=== PATIENT | male | born 1990 | race Two or more races ===

== ENCOUNTER 2020-02-10 16:23 | Outpatient (REF) | payer BC, SELFPAY ==
[2020-02-10 17:29] LABS: Alanine Aminotransferase 34 U/L (0-40); Albumin Level 4.5 g/dL (3.5-5.0); Alkaline Phosphatase 92 U/L (39-117); Anion Gap 16 (12-20); Aspartate Amino Transferase 29 U/L (5-37); Bilirubin Total 0.8 mg/dL (0.0-1.0); Blood Urea Nitrogen 14 mg/dL (9-16); Calcium 9.3 mg/dL (8.4-10.2); Carbon Dioxide 26 mmol/L (22-29); Chloride 103 mmol/L (96-108); Cholesterol 163 mg/dL; Estimated Glomerular Filt Rate > 60; Glucose Fasting 77 mg/dL (60-99); HDL Cholesterol 44 mg/dL; LDL Cholesterol Calculated 107 mg/dl; Potassium 4.2 mmol/l (3.3-5.1); Sodium 141 mmol/L (135-145); Total Protein 7.7 g/dL (6.5-8.0); Triglycerides 64 mg/dL
[2020-02-10 17:42] LABS: Syphilis Screen Nonreactive (Nonreactive)
[2020-02-10 17:53] LABS: TSH reflex Free T4 1.29 mIU/mL (0.32-4.0)
[2020-02-12 08:17] LABS: HBc Num1 0.07 S/CO (0.00-0.79); HBsAGNum1 0.19 S/CO (0.00-0.99); Hepatitis B Core Antibody Nonreactive (Nonreactive); Hepatitis B Surface Antigen Negative (Negative)
[2020-02-12 08:45] LABS: HBS Num1 > 1000.00 mIU/mL (0-7.99); HIV AB/AG Nonreactive (Nonreactive); HIV Num 1 0.24 S/CO (0.00-0.99); ~HepC Num1 0.04 S/CO (0.00-0.79); ~Hepatitis B Surface Antibody REACTIVE (Nonreactive); ~Hepatitis C Antibody Nonreactive (Nonreactive)
== END 2020-02-10 16:24 | disposition home or self-care (01) ==
LOC: HO.LAB 16:23
PROVIDERS: PCP Family Medicine; Visit Provider Family Medicine
DX: Z11.3 Encounter for screening for infections with a predominantly sexual mode of transmission (principal); Z00.00 Encounter for general adult medical examination without abnormal findings
CPT/HCPCS: 80053; 80061; 84443; 86704; 86706; 86780; 86803; 87340; 87389

== ENCOUNTER 2020-10-24 14:21 | Emergency (ER) | payer BC, SELFPAY ==
[2020-10-24 14:44] VITALS: BP 132/84; PULSE 90; RESP 16; TEMP 36.7; O2SAT 98; BMI 43.2
--- NOTE | 2020-10-24 15:15 | ED.SKABFB ---
HPI - Skin/Abscess/Foreign Bdy General Chief complaint: Skin/Abscess/Foreign Body Stated complaint: cyst Time Seen by Provider: 10/24/20 15:13 History of Present Illness HPI narrative: Patient complains of red swollen painful area on his back for several days, he saw his doctor who started antibiotics but it continues to remains swollen, no fever no chills no other complaints Related Data Previous Rx's Medication Instructions Recorded cephalexin 500 mg capsule 500 mg PO Q12H 10 Days #20 cap 10/19/20 doxycycline hyclate 100 mg capsule 100 mg PO BID 7 Days #14 cap 10/24/20 ibuprofen 600 mg tablet 600 mg PO Q6H PRN #20 tab 10/24/20 oxycodone 5 mg tablet 5 mg PO Q6H PRN #10 tab 10/24/20 Allergies Allergy/AdvReac Type Severity Reaction Status Date / Time No Known Allergies Allergy Verified 10/19/20 17:25 Review of Systems Review of Systems: Positive for redness and swelling to a spot on the back Negatives are no fever no chills no headache no neck pain no shortness of breath no nausea or vomiting no dysuria no numbness weakness or tingling Yes all other systems are reviewed and are negative PMFSH Past Medical History Source: nursing notes reviewed Social History Social History Advance Directives: Yes Advance Directives Information Provided: Yes Advance Directives on File: No Physical Exam Vital Signs: Vital Signs: Last Vital Signs Temp 98.1 F 10/24/20 14:44 Pulse 90 10/24/20 14:44 Resp 16 10/24/20 14:44 BP 132/84 10/24/20 14:44 Pulse Ox 98 10/24/20 14:44 Body Mass Index 43.2 General appearance is no acute distress The head is normocephalic atraumatic Neck is supple Respiratory no distress The back is full range of motion, no bony tenderness The skin of the back has an abscess with redness fluctuance and tenderness on the left side of the upper back between scapula and midline Extremities full range of motion x4 Neuro no focal deficits Course Course Course Narrative: Procedure note Abscess of the back is cleansed with Betadine Anesthesia is 8 cc of 1% lidocaine An incision is made with an 11 blade Copious pus and solid cystic material is expressed from the cavity, packing was placed and a dressing was placed Discharge Plan Discharge Clinical Impression: Abscess Patient Disposition: Home, Self-Care Additional Instructions: Return in 2 days, Monday morning for packing removal, wound check Return any time for worse pain and swelling, fever, spreading redness, any worse condition or any concerns Take both the antibiotic you already prescribed and in addition take the doxycycline Prescriptions: New doxycycline hyclate 100 mg capsule 100 mg PO BID 7 Days Qty: 14 RF: 0 oxycodone 5 mg tablet 5 mg PO Q6H PRN (Reason: pain) Qty: 10 RF: 0 ibuprofen 600 mg tablet 600 mg PO Q6H PRN (Reason: pain) Qty: 20 RF: 0 No Action cephalexin 500 mg capsule 500 mg PO Q12H 10 Days Qty: 20 RF: 0 Stand Alone Forms: Work/School Release Interventions: ED Discharge Assessment Last Done: 10/24/20 16:36 Discharge Date/Time: 10/24/20 16:37
[2020-10-24] MEDS: Lidocaine HCl 1 % MPF 5 ML VIAL SUBCUT ×2 (15:22)
== END 2020-10-24 16:37 | disposition home or self-care (01) ==
PROVIDERS: Emergency Provider Internal Medicine; PCP Family Medicine
DX: L02.212 Cutaneous abscess of back [any part, except buttock and flank] (principal)
CPT/HCPCS: 10060; 99283; 99284

== ENCOUNTER 2020-10-26 08:01 | Emergency (ER) | payer BC, SELFPAY ==
[2020-10-26 08:33] VITALS: BP 152/79; PULSE 95; RESP 18; TEMP 36.4; O2SAT 97; BMI 39.9
--- NOTE | 2020-10-26 10:06 | ED_ITS ---
HPI - Recheck/Abnormal Lab/Rx General Chief Complaint: Wound/Laceration Stated Complaint: wound care Time Seen by Provider: 10/26/20 09:40 Source: patient Mode of arrival: ambulatory Limitations: no limitations History of Present Illness complaint: wound re-check Initial visit (ago): day(s) (Two days ago) Initial visit for: cellulitis and abscess Returns today for: wound recheck (Packing removal) and cellulitis follow-up Symptoms since prior visit: no new symptoms and improved Context: planned re-check Associated symptoms: none Treatments prior to arrival: other (Taking the antibiotics as prescribed) Related Data Previous Rx's Medication Instructions Recorded cephalexin 500 mg capsule 500 mg PO Q12H 10 Days #20 cap 10/19/20 doxycycline hyclate 100 mg capsule 100 mg PO BID 7 Days #14 cap 10/24/20 ibuprofen 600 mg tablet 600 mg PO Q6H PRN #20 tab 10/24/20 oxycodone 5 mg tablet 5 mg PO Q6H PRN #10 tab 10/24/20 Allergies Allergy/AdvReac Type Severity Reaction Status Date / Time No Known Allergies Allergy Verified 10/19/20 17:25 Review of Systems Review of Systems: Constitutional : No Fever, No Chills, Cardiovascular : No Chest Pain, No SOB Respiratory : No Dyspnea Gastrointestinal : No abdominal pain Musculoskeletal : No Joint Swelling Skin : positive skin wound, no laceration, No Foreign bodies, No rash, No surrounding erythema Neuro : No Weakness, No Numbness/tingling Psych : No SI/HI/thoughts of self injury Yes all other systems are reviewed and are negative [facility] Past Medical History Attestation statement: The following information was validated with the patient. Social History Social History Advance Directives: Yes Advance Directives Information Provided: Yes Advance Directives on File: No Physical Exam Vital Signs: Vital Signs: Last Vital Signs Temp 97.6 F 10/26/20 08:33 Pulse 95 10/26/20 08:33 Resp 18 10/26/20 08:33 BP 152/79 H 10/26/20 08:33 Pulse Ox 97 10/26/20 08:33 Body Mass Index 39.9 vital signs have been reviewed as normal and appeared to be correct. Blood pressure hypertensive 152/79. Heart rate normal. Respiration rate normal. Temperature normal. Oxygen saturation normal. Appearance: Alert. Oriented X3. No acute distress. Head: Normal external exam. Normocephalic. Atraumatic. Eyes: PERRLA. EOMI. Conjunctiva and sclera normal. Eyelids normal. ENT: Pharynx normal. Uvula midline. Moist mucous membranes. Neck: Normal inspection. Neck supple. FROM. No adenopathy. No meningeal signs. CVS: Normal heart rate and rhythm. Heart sound normal. Pulses normal throughout. No murmurs/rales/gallops. Respiratory: No respiratory distress. Painless inspiration. Breath sounds normal. No wheezes/rales/rhonchi noted. Chest nontender. No accessory muscle usage noted or decreased air movement noted. Back: Full range of motion noted. To the patient's upper back patient noted to have a wound with packing in place no surrounding erythema purulent drainage noted. No streaking noted. No fluctuance noted. No additional rashes/lesion/induration/fluctuance or signs of infection noted. Skin: Skin warm and dry. Normal skin color. Normal skin turgor. No rashes/lesions/lacerations noted. Extremities: Extremities exhibit normal range of motion. Extremities nontender. Neuro: Oriented X 3. No motor deficit. No sensory deficit. Reflexes normal. Normal steady gait. No focal neuro deficits noted. Vascular: + radial pulses/+ 2 distal pedal pulses/+2 dorsalis pedis b/l. Normal cap refill. No cyanosis noted to upper extremity nails and lower extremity toes nails. Course Course Course Narrative: 30-year-old male presenting to the ED 2 days after he had an I&D here with packing placed. He was already on Keflex and doxycycline. Reports that he is taking as prescribed. No new symptoms. On exam patient noted to have packing in place no surrounding erythema/purulent drainage/induration or fluctuance or streaking noted. Packing was removed and wound was irrigated bloody discharge was noted. No purulent drainage. Will DC home with instructions return if any new or worsening symptoms to follow up with primary care provider for. Patient understands agrees with this plan. MDM - Recheck/Abnormal Lab/Rx Medical Records Attestation: I reviewed the patient's medical records. Discharge Plan Discharge Clinical Impression: Encounter for wound re-check, Abscess packing removal Patient Disposition: Home, Self-Care Instructions: Acute Wounds (ED) Prescriptions: No Action doxycycline hyclate 100 mg capsule 100 mg PO BID 7 Days Qty: 14 RF: 0 oxycodone 5 mg tablet 5 mg PO Q6H PRN (Reason: pain) Qty: 10 RF: 0 ibuprofen 600 mg tablet 600 mg PO Q6H PRN (Reason: pain) Qty: 20 RF: 0 cephalexin 500 mg capsule 500 mg PO Q12H 10 Days Qty: 20 RF: 0 Referrals: Derrick Gastelum MD [Primary Care Provider] - 2 days Print Language: Frisian
== END 2020-10-26 10:33 | disposition home or self-care (01) ==
PROVIDERS: Emergency Provider Emergency Medicine; PCP Family Medicine
DX: Z48.00 Encounter for change or removal of nonsurgical wound dressing (principal)
CPT/HCPCS: 99283

== ENCOUNTER 2021-05-17 04:04 | Emergency (ER) | payer BC, SELFPAY ==
[2021-05-17 04:24] LABS: MANUAL DIFF FLAG NO
[2021-05-17 04:25] LABS: Basophils Percent Auto 0.3 % (0-2); Eosinophils Absolute Auto 0.1 X10*3/uL (0.0-0.4); Eosinophils Percent Auto 1.1 % (0-4); Hematocrit 45.3 % (42.0-52.0); Hemoglobin 14.4 g/dl (14.0-18.0); Imm Gran Abs Auto 0.02 X10*3/uL (0.00-0.03); Imm Gran Pct Auto 0.2 % (0.0-0.4); Lymphocytes Absolute Auto 3.4 X10*3/uL (1.2-4.9); Lymphocytes Percent Auto 35.6 % (20-40); Mean Corpuscular HGB Conc 31.8 g/dl (31.0-36.0); Mean Corpuscular Hemoglobin 27.9 pg (27.0-33.0); Mean Corpuscular Volume 87.8 fL (80.0-98.0); Mean Platelet Volume 11.2 fL (9.4-12.4); Monocytes Absolute Auto 0.6 X10*3/uL (0.1-1.2); Monocytes Percent Auto 6.1 % (2-11); Neutrophils Absolute Auto 5.4 x10*3/uL (2.0-8.3); Neutrophils Percent Auto 56.7 % (45-73); Platelet Count 242 X10*3/uL (160-400); Red Blood Count 5.16 X10*6/uL (4.60-5.80); Red Cell Distribution Width 13.8 % (11.0-16.0); White Blood Count 9.6 X10*3/uL (4.8-10.8)
[2021-05-17 04:29] VITALS: BP 146/92; PULSE 81; RESP 18; TEMP 37.1; O2SAT 99; BMI 39.5
[2021-05-17 04:43] LABS: COVID-19 Test Negative (Negative)
--- NOTE | 2021-05-17 07:33 | ED_ITS ---
HPI - General Adult General Chief complaint: General Medical Stated complaint: dizziness Time Seen by Provider: 05/17/21 06:57 Source: patient Limitations: no limitations History of Present Illness HPI narrative: This is a 30-year-old male who last night before going to bed felt a little bit dizzy. The patient later woke up around 02:00 o'clock in the morning feeling more dizzy, noted that it felt like the room was spinning. Had a bowel movement and went back to bed, still felt dizzy. Patient felt better for a time but then felt worse again this morning. The patient denies any headache. He denies that the symptoms are reproducible with turning the head to 1 side or the other. He has had some nausea, denies any vomiting. Denies any ear pain or tinnitus. He denies any chest pain or shortness of breath or palpitations. Denies abdominal pain. He said the dizziness feels better now, he still has some residual nausea. He did note a little rhinorrhea in the waiting room but has not generally felt like he has a URI Related Data Previous Rx's Medication Instructions Recorded cephalexin 500 mg capsule 500 mg PO Q12H 10 Days #20 cap 10/19/20 doxycycline hyclate 100 mg capsule 100 mg PO BID 7 Days #14 cap 10/24/20 ibuprofen 600 mg tablet 600 mg PO Q6H PRN #20 tab 10/24/20 oxycodone 5 mg tablet 5 mg PO Q6H PRN #10 tab 10/24/20 meclizine 25 mg tablet 25 mg PO TID PRN #20 tab 05/17/21 ondansetron HCl 4 mg tablet 4 mg PO Q6H PRN #10 tab 05/17/21 Allergies Allergy/AdvReac Type Severity Reaction Status Date / Time No Known Allergies Allergy Verified 11/04/20 16:40 Review of Systems Review of Systems: Yes all other systems are reviewed and are negative Constitutional: Constitutional: Reports as per HPI, Denies fever(s) and Denies headache(s) Eyes: Eyes: Reports as per HPI and Reports no additional eye complaints ENT: Reports system reviewed and no additional complaints, except as docu mented, Reports as per HPI, Reports vertigo, Denies headache(s), Denies nasal congestion, Denies nasal discharge and Denies sore throat Cardiovascular: Cardiovascular: Reports as per HPI, Denies chest pain and Denies dyspnea Respiratory: Respiratory: Reports as per HPI, Denies cough and Denies dyspnea Gastrointestinal: Gastrointestinal: Reports as per HPI, Denies abdominal pain, Denies diarrhea, Reports nausea and Denies vomiting Genitourinary: Genitourinary: Reports as per HPI, Denies hematuria, Denies dysuria and Denies urinary frequency Musculoskeletal: Musculoskeletal: Reports no additional musculoskeletal complaints and Denies numbness Integumentary/Breasts: Skin/Breast: Reports as per HPI and Denies rash Neurologic: Reports as per HPI, Reports vertigo, Denies headache(s), Denies focal weakness and Denies numbness Psychiatric: Psychiatric: Reports no additional psychiatric complaints and Reports as per HPI Endocrine: Endocrine: Reports no additional endocrine complaints and Reports as per HPI Hematologic/Lymphatic: Hematologic/Lymphatic: Reports no additional hem atologic/lymphatic complaints, Reports as per HPI and Reports other (No peripheral edema) [facility] Social History Social History (Updated 11/04/20 @ 16:41 by [employer]) Housing: House Patient Tobacco Use Status: Never used Tobacco Advance Directives: No Advance Directives Information Provided: No Current occupational status: employed Physical Exam ED Vital Signs: Vital Signs - 24 hr 05/17/21 04:29 Temperature 98.8 F Pulse Rate 81 Respiratory Rate 18 Blood Pressure 146/92 H Pulse Oximetry 99 BMI result Body Mass Index 39.5 Const General: no acute distress Orientation/consciousness: patient oriented x3 HENMT Head: Yes normal to inspection Ears: external ears normal and TM's normal bilaterally General nose exam: Normal external nose present Mouth: moist mucous membranes Throat: Yes posterior oropharynx normal, Yes tonsils normal and Yes uvula midline Eyes Eyelids: Yes eyelids normal Conjunctivae: conjunctivae normal Pupils: Equal, round and reactive pupils present Neck Neck: Yes supple Resp Effort & Inspection: normal respiratory effort Auscultation: clear to auscultation bilaterally Cardio Rate: regular rate Rhythm: regular rhythm Heart sounds: S1 normal heart sound present, S2 normal heart sound present, no gallops, no murmurs and no rubs GI Inspection: No distended Palpation (GI): Soft to palpation and nontender Auscultation: normal bowel sounds Skin General skin exam: other (Warm and dry) Neuro General: patient oriented x3 and CN's II-XI intact bilaterally Cranial nerves: Yes Equal, round and reactive pupils present Extrem General: Yes no pedal edema Psych Affect: normal affect Attitude: cooperative Medical Decision Making MDM Narrative Medical decision making narrative: Patient was [id number] vertigo symptoms which seem to have resolved mostly on their own. Patient did have some residual nausea. Patient was treated with Antivert and Zofran and felt much better. Patient had no nystagmus on exam, symptoms were not reproduced with turning his head, doubt benign positional vertigo. Patient may have mild labyrinthitis. Patient had no headache, do not suspect brain or cervical or hemorrhage, or vertebral artery or basilar artery dissection. Will treat the patient with Antivert and Zofran. CBC and chemistry unremarkable. Patient with a normal heart exam, and vital signs, no cardiac workup indicated Lab Data Lab results reviewed: Yes I reviewed the patient's lab results. Result diagrams: 05/17/21 04:19 05/17/21 07:38 Labs: Lab Results 05/17/21 05/17/21 05/17/21 Range/Units 04:19 04:20 07:38 WBC 9.6 (4.8-10.8) X10*3/uL RBC 5.16 (4.60-5.80) X10*6/uL Hgb 14.4 (14.0-18.0) g/dl Hct 45.3 (42.0-52.0) % MCV 87.8 (80.0-98.0) fL MCH 27.9 (27.0-33.0) pg MCHC 31.8 (31.0-36.0) g/dl RDW 13.8 (11.0-16.0) % Plt Count 242 (160-400) X10*3/uL MPV 11.2 (9.4-12.4) fL Immature Gran % (Auto) 0.2 (0.0-0.4) % Neut % (Auto) 56.7 (45-73) % Lymph % (Auto) 35.6 (20-40) % Island % (Auto) 6.1 (2-11) % Eos % (Auto) 1.1 (0-4) % Baso % (Auto) 0.3 (0-2) % Lymph # (Auto) 3.4 (1.2-4.9) X10*3/uL Island # (Auto) 0.6 (0.1-1.2) X10*3/uL Eos # (Auto) 0.1 (0.0-0.4) X10*3/uL Baso # (Auto) 0.0 (0.0-0.2) X10*3/uL Abs Immat Gran (auto) 0.02 (0.00-0.03) X10*3/uL Absolute Neuts (auto) 5.4 (2.0-8.3) x10*3/uL Absolute Nucleated RBC 0.000 (0.0-0.012) X10*3/uL Nucleated RBC % (auto) 0.0 (0.0-0.2) /100WBC Sodium 138 (135-145) mmol/L Potassium 4.5 (3.3-5.1) mmol/L Chloride 105 (96-108) mmol/L Carbon Dioxide 24 (22-29) mmol/L Anion Gap 14 (12-20) BUN 11 (9-16) mg/dL Creatinine 0.77 (0.5-1.4) mg/dL Estim Creat Clear Calc 176.6 Estimated GFR > 60 Random Glucose 131 H (60-115) mg/dL Calcium 9.6 (8.4-10.2) mg/dL Total Bilirubin 0.4 (0.0-1.0) mg/dL AST 31 (5-37) U/L ALT 61 H (0-40) U/L Alkaline Phosphatase 90 (39-117) U/L Total Protein 7.8 (6.5-8.0) g/dL Albumin 4.4 (3.5-5.0) g/dL COVID-19 ([facility]) Negative (Negative) COVID-19 Clin Com See Note Discharge Plan Discharge Clinical Impression: Vertigo Patient Disposition: Home, Self-Care Instructions: Vertigo (ED) Additional Instructions: return for any new or worsened symptoms. Use the meclizine as prescribed. Use ondansetron as needed for nausea. Drink plenty of fluids. Prescriptions: New meclizine 25 mg tablet 25 mg PO TID PRN (Reason: dizziness) Qty: 20 0RF ondansetron HCl 4 mg tablet 4 mg PO Q6H PRN (Reason: nausea and vomiting) Qty: 10 0RF No Action doxycycline hyclate 100 mg capsule 100 mg PO BID 7 Days Qty: 14 0RF oxycodone 5 mg tablet 5 mg PO Q6H PRN (Reason: pain) Qty: 10 0RF Rx Instructions: Narcotic may cause drowsiness, no driving for 6 hours after taking this medication ibuprofen 600 mg tablet 600 mg PO Q6H PRN (Reason: pain) Qty: 20 0RF cephalexin 500 mg capsule 500 mg PO Q12H 10 Days Qty: 20 0RF Stand Alone Forms: Work/School Release Interventions: ED Discharge Assessment Last Done: 05/17/21 08:16 Discharge Date/Time: 05/17/21 08:17
[2021-05-17] MEDS: Meclizine HCl 25 MG TABLET PO (07:41)
[2021-05-17] MEDS: Ondansetron ODT 4 MG TAB.RAPDIS TRANSLINGU (07:41)
[2021-05-17 08:01] LABS: Alanine Aminotransferase 61 U/L (0-40); Albumin Level 4.4 g/dL (3.5-5.0); Alkaline Phosphatase 90 U/L (39-117); Anion Gap 14 (12-20); Aspartate Amino Transferase 31 U/L (5-37); Bilirubin Total 0.4 mg/dL (0.0-1.0); Blood Urea Nitrogen 11 mg/dL (9-16); Calcium 9.6 mg/dL (8.4-10.2); Carbon Dioxide 24 mmol/L (22-29); Chloride 105 mmol/L (96-108); Creatinine Clr Calc Pharmacy 176.6; Estimated Glomerular Filt Rate > 60; Glucose Random 131 mg/dL (60-115); Potassium 4.5 mmol/L (3.3-5.1); Sodium 138 mmol/L (135-145); Total Protein 7.8 g/dL (6.5-8.0)
== END 2021-05-17 08:17 | disposition home or self-care (01) ==
PROVIDERS: Emergency Provider Emergency Medicine; PCP Family Medicine
DX: R42 Dizziness and giddiness (principal); Z20.822 Contact with and (suspected) exposure to COVID-19
CPT/HCPCS: 36415; 80053; 85025; 87635; 99283

== ENCOUNTER 2021-10-14 14:30 | Outpatient (RCR) | payer BC, SELFPAY | END 2021-12-29 09:09 | disposition home or self-care (01) | LOC: HO.OT 14:30 | PROVIDERS: PCP Family Medicine; Visit Provider Family Medicine | DX: M25.521 Pain in right elbow (principal) | CPT/HCPCS: 97035; 97110; 97165 ==

== ENCOUNTER 2021-10-15 22:58 | Emergency (ER) | payer BC, SELFPAY ==
[2021-10-15 23:26] VITALS: BP 140/75; PULSE 92; RESP 18; O2SAT 97; BMI 36.5
[2021-10-16] MEDS: Lidocaine HCl 1 % MPF 2 ML VIAL INFILTRATI ×7 (01:23→02:15)
--- NOTE | 2021-10-16 02:15 | ED_ITS ---
HPI - Skin/Abscess/Foreign Bdy General Chief complaint: Skin/Abscess/Foreign Body Stated complaint: ingrown nail? and infection Time Seen by Provider: 10/16/21 00:35 Source: patient Mode of arrival: ambulatory Limitations: no limitations History of Present Illness HPI narrative: 31-year-old male who presents emergency department for evaluation of right index finger swelling and pain x4 days. Patient denies any injury. States that he has a constant, dull pain around the nail of his index finger with swelling which is gotten progressively worse. States the pain is 8/10 is worse if he touches the area. He denies any systemic symptoms such as malaise, fatigue, fever, chills. The patient does not bite his nails. He denies being on antibiotics recently and he has no history of MRSA infection. Related Data Previous Rx's Medication Instructions Recorded cephalexin 500 mg capsule 500 mg PO Q12H 10 days #20 caps 10/19/20 doxycycline hyclate 100 mg capsule 100 mg PO BID 7 days #14 caps 10/24/20 ibuprofen 600 mg tablet 600 mg PO Q6H PRN pain #20 tabs 10/24/20 oxycodone 5 mg tablet 5 mg PO Q6H PRN pain #10 tabs 10/24/20 meclizine 25 mg tablet 25 mg PO TID PRN dizziness #20 tabs 05/17/21 ondansetron HCl 4 mg tablet 4 mg PO Q6H PRN nausea and 05/17/21 vomiting #10 tabs cyclobenzaprine 10 mg tablet 10 mg PO BEDTIME PRN muscle spasm 08/04/21 10 days #10 tabs ibuprofen 800 mg tablet 800 mg PO Q8H PRN pain 14 days #42 08/04/21 tabs cephalexin 500 mg capsule 500 mg PO TID 5 days #15 caps 10/16/21 Allergies Allergy/AdvReac Type Severity Reaction Status Date / Time No Known Allergies Allergy Verified 10/15/21 23:28 Review of Systems Review of Systems: Yes all other systems are reviewed and are negative [facility] Past Medical History [facility] Narrative: Past medical history: None. Past surgical history: None. Social history: He denies tobacco use. He occasionally drinks alcohol. He denies drug use. Social History Social History Housing: House Patient Tobacco Use Status: Never used Tobacco Advance Directives: No Advance Directives Information Provided: Yes Current occupational status: employed Physical Exam Vital Signs: Vital Signs: Last Vital Signs Pulse 92 10/15/21 23:26 Resp 18 10/15/21 23:26 BP 140/75 H 10/15/21 23:26 Pulse Ox 97 10/15/21 23:26 O2 Del Method 10/15/21 23:26 BMI result Body Mass Index 36.5 Const: Other: Awake, alert, male patient, pleasant, cooperative in no distress HEENT: Other: Normal cephalic atraumatic Resp: Other: No respiratory distress Extrem: Other: Right index finger is consistent with a paronychial abscess Psych: Appearance: grossly normal Mental Status: mental status grossly normal Course Course Course Narrative: 31-year-old male who presented for evaluation of a right index finger paronychial abscess. The patient was anesthetized using lidocaine digital block. The patient's paronychia was incised and packed. Patient was started on Keflex 500 mg 3 times a day for 5 days and given his 1st dose here in the emergency department. He was given printed and verbal instructions and discharged home. Procedures Abscess I/D Site: other (Right index paronychial abscess) Side (if applicable): right Local Anesthetic: lidocaine 1% Amount of anesthesia used (mL): 16 Technique: incised with blade (#11 blade) Amount of fluid expressed (mL): 1 Sent for culture/gram staining?: No Irrigation: No Packing used?: iodoform Complications: other (none) Discharge Plan Discharge Clinical Impression: Paronychia of finger of right hand Patient Disposition: Home, Self-Care Instructions: Paronychia (ED) Additional Instructions: You had a paronychia abscess of your right index finger which was cut open (incised) and a small piece of gauze was placed in the incision. You had a very small amount of pus drained from the abscess. Keep the bulky dressing on for 24 hours. Take Keflex (cephalexin) 500 mg pills, 1 pill 3 times a day for 5 days. After 24 hours removed the dressing and soak your finger in warm water for 15 minutes 3 to 4 times a day for 2 days. Apply bacitracin and a gauze dressing to the incision for 3-4 days. Take ibuprofen 200 mg pills, 3 pills every 6 hours as needed for pain. Take Tylenol (acetaminophen) 500 mg pills, 2 pills every 4 to 6 hours as needed for pain. Follow-up with your doctor in 2 days. Please return to the emergency department if your symptoms get worse or if you develop any symptoms that are concerning to you. Prescriptions: New cephalexin 500 mg capsule 500 mg PO TID 5 Days Qty: 15 0RF No Action doxycycline hyclate 100 mg capsule 100 mg PO BID 7 Days Qty: 14 0RF oxycodone 5 mg tablet 5 mg PO Q6H PRN (Reason: pain) Qty: 10 0RF Rx Instructions: Narcotic may cause drowsiness, no driving for 6 hours after taking this medication ibuprofen 600 mg tablet 600 mg PO Q6H PRN (Reason: pain) Qty: 20 0RF meclizine 25 mg tablet 25 mg PO TID PRN (Reason: dizziness) Qty: 20 0RF ondansetron HCl 4 mg tablet 4 mg PO Q6H PRN (Reason: nausea and vomiting) Qty: 10 0RF cephalexin 500 mg capsule 500 mg PO Q12H 10 Days Qty: 20 0RF cyclobenzaprine 10 mg tablet 10 mg PO BEDTIME PRN (Reason: muscle spasm) 10 Days Qty: 10 0RF ibuprofen 800 mg tablet 800 mg PO Q8H PRN (Reason: pain) 14 Days Qty: 42 0RF Interventions: ED Discharge Assessment Last Done: 10/16/21 02:25 Discharge Date/Time: 10/16/21 02:35
[2021-10-16] MEDS: cephALEXin 500 MG CAPSULE PO (02:19)
== END 2021-10-16 02:35 | disposition home or self-care (01) ==
PROVIDERS: Emergency Provider Emergency Medicine Emergency Medical Services; PCP Family Medicine
DX: L03.011 Cellulitis of right finger (principal)
CPT/HCPCS: 10060; 99282; 99284

== ENCOUNTER 2022-10-12 20:30 | Emergency (ER) | payer BC, SELFPAY ==
[2022-10-12 20:41] VITALS: BP 149/93; PULSE 88; RESP 18; TEMP 37.1; O2SAT 98; BMI 40.1
--- NOTE | 2022-10-12 20:41 | ED_ITS ---
HPI - Male Genitourinary General Chief complaint: General Medical Stated complaint: Pale/d/discoloring of private [employer] department Seen by Provider: 10/12/22 22:56 Source: patient, RN notes reviewed and old records reviewed Mode of arrival: ambulatory Limitations: no limitations History of Present Illness HPI Narrative: 32-year-old male who denies any past medical history presents for evaluation of multiple complaints. He complains of diarrhea for the last 4 days He describes his diarrhea as ?gooey. He denies any black or bloody stool He reports that he went to [place] over the weekend but no other recent travel He denies any abdominal pain He reports having had chills earlier and ?I think I was pale. ? Patient reports that he feels better currently He also reports ?white spots on the tip of my penis. ? He states that they have been there for approximately 1 month He reports that he 1st noticed them when he was ?washing the area with improved because I did not have soap. He states the area is itchy on the skin but not when he urinates Denies any urethral discharge The patient is uncircumcised Related Data Previous Rx's Medication Instructions Recorded cephalexin 500 mg capsule 500 mg PO Q12H 10 days #20 caps 10/19/20 doxycycline hyclate 100 mg capsule 100 mg PO BID 7 days #14 caps 10/24/20 ibuprofen 600 mg tablet 600 mg PO Q6H PRN pain #20 tabs 10/24/20 oxycodone 5 mg tablet 5 mg PO Q6H PRN pain #10 tabs 10/24/20 meclizine 25 mg tablet 25 mg PO TID PRN dizziness #20 tabs 05/17/21 ondansetron HCl 4 mg tablet 4 mg PO Q6H PRN nausea and 05/17/21 vomiting #10 tabs cyclobenzaprine 10 mg tablet 10 mg PO BEDTIME PRN muscle spasm 08/04/21 10 days #10 tabs ibuprofen 800 mg tablet 800 mg PO Q8H PRN pain 14 days #42 08/04/21 tabs cephalexin 500 mg capsule 500 mg PO TID 5 days #15 caps 10/16/21 clotrimazole 1 % topical cream 1 appl topical BID 1 week #30 grams 10/12/22 Allergies Allergy/AdvReac Type Severity Reaction Status Date / Time No Known Allergies Allergy Verified 10/15/21 23:28 Review of Systems Constitutional: Constitutional: Reports chills, Denies fever(s) and Denies malaise Cardiovascular: Cardiovascular: Denies chest pain Respiratory: Respiratory: Denies chest congestion and Denies cough Gastrointestinal: Gastrointestinal: Denies abdominal pain, Denies melena, Denies hematochezia, Reports diarrhea, Denies nausea and Denies vomiting Genitourinary: Genitourinary: Denies dysuria and Reports other (Patient reports penile rash) Musculoskeletal: Musculoskeletal: Denies back pain Integumentary/Breasts: Skin/Breast: Reports rash PMFSH Social History Social History Housing: House Patient Tobacco Use Status: Never used Tobacco Advance Directives: No Advance Directives Information Provided: Yes Current occupational status: employed Physical Exam Vital Signs: Vital Signs: Last Vital Signs Temp 99.0 F 10/12/22 22:46 Pulse 97 10/12/22 22:46 Resp 18 10/12/22 22:46 BP 139/93 H 10/12/22 22:46 Pulse Ox 99 10/12/22 22:46 O2 Del Method Room Air 10/12/22 22:46 BMI result Body Mass Index 40.1 Const: General: healthy appearing, comfortable, no acute distress, alert and awake Nutritional Appearance: well nourished Orientation/consciousness: patient oriented x3 HEENT: Head: Yes normocephalic and Yes atraumatic Eyes: Eyelids: Yes eyelids normal Conjunctivae: conjunctivae normal Sclerae: sclerae normal Corneas: corneas normal Pupils: Equal, round and reactive pupils present EOM: EOMs intact bilaterally Neck: Neck: Yes full ROM Resp: Effort & Inspection: normal respiratory effort, able to speak in complete sentences and not labored Cardio: Rate: regular rate Rhythm: regular rhythm GI: Inspection: No distended Palpation (GI): Soft to palpation, not firm, nontender, no guarding and not rigid : Other: There is mild whitish discoloration to the glans of the penis mostly on the left side of the meatus Penis: uncircumcised, no paraphimosis, no phimosis, no ulcerations and other Meatus: meatus normal and no meatla discharge Scrotum: scrotum normal Skin: General skin exam: elasticity normal Neuro: General: patient oriented x3 Cranial nerves: Yes Equal, round and reactive pupils present and Yes Bilaterally intact EOM present Cognition (Neuro): normal cognition Course Course Course Narrative: RME - 32 yo male presents to the ER for evaluation of nonbloody diarrhea for 4 days, feeling pale and weak with chills. No abdominal pain or vomiting. Also reports glans of his penis is discolored with white spots. No pain or urinary symptoms, no urethral discharge. Plan: basic labs, UA Medical Decision Making Medical Decision Making [facility] Narrative: Patient complains of diarrhea without abdominal pain or black or bloody stool. His abdominal exam is reassuring, no abdominal tenderness or distention. He does have a very mild leukocytosis. I suspect the patient has a viral enteritis leading to his diarrhea. He will treat symptomatically. The patient has been on rash is likely candidiasis will treat with clotrimazole. This was discussed with the patient. Differential Diagnosis Differential Diagnoses: The differential diagnosis associated with the presentation includes Colitis Diverticulitis Gastroenteritis Abdominal pain C diff less likely Balanitis Cellulitis Sexually transmitted infection Lab Data MDM Lab Attestation statement: I reviewed the patient's lab results. Very mild leukocytosis of 11.3 K with a slight left shift. No anemia, normal platelet count. Electrolytes within normal limits. Renal function within normal limits. Bilirubin and LFTs within normal limits. UA without any signs of infection 10/12/22 21:30 10/12/22 21:30 Labs: Lab Results 10/12/22 10/12/22 10/12/22 Range/Units 21:30 21:30 21:36 WBC 11.3 H (4.8-10.8) X10*3/uL RBC 5.00 (4.60-5.80) X10*6/uL Hgb 14.2 (14.0-18.0) g/dl Hct 43.2 (42.0-52.0) % MCV 86.4 (80.0-98.0) fL MCH 28.4 (27.0-33.0) pg MCHC 32.9 (31.0-36.0) g/dl RDW 13.0 (11.0-16.0) % Plt Count 264 (160-400) X10*3/uL MPV 10.8 (9.4-12.4) fL Immature Gran % (Auto) 0.3 (0.0-0.4) % Neut % (Auto) 74.0 H (45-73) % Lymph % (Auto) 18.6 L (20-40) % [place] % (Auto) 6.3 (2-11) % Eos % (Auto) 0.4 (0-4) % Baso % (Auto) 0.4 (0-2) % Lymph # (Auto) 2.1 (1.2-4.9) X10*3/uL [place] # (Auto) 0.7 (0.1-1.2) X10*3/uL Eos # (Auto) 0.1 (0.0-0.4) X10*3/uL Baso # (Auto) 0.1 (0.0-0.2) X10*3/uL Abs Immat Gran (auto) 0.03 (0.00-0.03) X10*3/uL Absolute Neuts (auto) 8.3 (2.0-8.3) x10*3/uL Absolute Nucleated RBC 0.000 (0.0-0.012) X10*3/uL Nucleated RBC % (auto) 0.0 (0.0-0.2) /100WBC Sodium 141 (135-145) mmol/L Potassium 3.7 (3.3-5.1) mmol/L Chloride 106 (96-108) mmol/L Carbon Dioxide 28 (22-29) mmol/L Anion Gap 11 L (12-20) BUN 11 (9-16) mg/dL Creatinine 0.96 (0.5-1.4) mg/dL Estim Creat Clear Calc 140.2 Estimated GFR > 60 Random Glucose 87 (60-115) mg/dL Calcium 9.7 (8.4-10.2) mg/dL Magnesium 2.4 (1.6-2.6) mg/dL Total Bilirubin 0.7 (0.0-1.0) mg/dL Direct Bilirubin 0.3 (0.0-0.5) mg/dL AST 27 (5-37) U/L ALT 28 (0-40) U/L Alkaline Phosphatase 83 (39-117) U/L Total Protein 7.7 (6.5-8.0) g/dL Albumin 4.2 (3.5-5.0) g/dL Urine Color Yellow Urine Appearance Turbid Urine pH 7.5 (5.0-9.0) Ur Specific [place] 1.020 (1.005-1.025) Urine Protein Negative (Neg-Trace) mg/dL Urine Glucose (UA) Negative (Negative) mg/dL Urine Ketones Negative (Negative) mg/dL Urine Blood Negative (Negative) Urine Nitrite Negative (Negative) Ur Leukocyte Esterase Negative (Negative) Tests considered The following testing was considered but not selected: Consider abdominal pelvic CT scan, however the patient is nontender on exam, well-appearing with reassuring labs Discharge Plan Discharge Clinical Impression: Balanitis, Acute diarrhea Patient Disposition: Home, Self-Care Instructions: Acute Diarrhea (ED) Additional Instructions: Parenting is likely related to a stomach virus Your blood work and urine sample reassuring today You may use [id number] Imodium to help slow the diarrhea You may also try a brat diet consisting of bananas, rice, applesauce, toast to help slow the diarrhea Drink lots of fluids The discoloration to the tibia penis is likely a mild fungal infection Use the clotrimazole cream as directed Follow-up with your primary doctor Prescriptions: New clotrimazole 1 % cream 1 appl topical BID 7 Days Qty: 30 0RF No Action doxycycline hyclate 100 mg capsule 100 mg PO BID 7 Days Qty: 14 0RF oxycodone 5 mg tablet 5 mg PO Q6H PRN (Reason: pain) Qty: 10 0RF Rx Instructions: Narcotic may cause drowsiness, no driving for 6 hours after taking this medication ibuprofen 600 mg tablet 600 mg PO Q6H PRN (Reason: pain) Qty: 20 0RF meclizine 25 mg tablet 25 mg PO TID PRN (Reason: dizziness) Qty: 20 0RF ondansetron HCl 4 mg tablet 4 mg PO Q6H PRN (Reason: nausea and vomiting) Qty: 10 0RF cephalexin 500 mg capsule 500 mg PO TID 5 Days Qty: 15 0RF cephalexin 500 mg capsule 500 mg PO Q12H 10 Days Qty: 20 0RF cyclobenzaprine 10 mg tablet 10 mg PO BEDTIME PRN (Reason: muscle spasm) 10 Days Qty: 10 0RF ibuprofen 800 mg tablet 800 mg PO Q8H PRN (Reason: pain) 14 Days Qty: 42 0RF
[2022-10-12 21:42] LABS: MANUAL DIFF FLAG NO
[2022-10-12 21:44] LABS: Basophils Absolute Auto 0.1 X10*3/uL (0.0-0.2); Basophils Percent Auto 0.4 % (0-2); Eosinophils Absolute Auto 0.1 X10*3/uL (0.0-0.4); Eosinophils Percent Auto 0.4 % (0-4); Hematocrit 43.2 % (42.0-52.0); Hemoglobin 14.2 g/dl (14.0-18.0); Imm Gran Abs Auto 0.03 X10*3/uL (0.00-0.03); Imm Gran Pct Auto 0.3 % (0.0-0.4); Lymphocytes Absolute Auto 2.1 X10*3/uL (1.2-4.9); Lymphocytes Percent Auto 18.6 % (20-40); Mean Corpuscular HGB Conc 32.9 g/dl (31.0-36.0); Mean Corpuscular Hemoglobin 28.4 pg (27.0-33.0); Mean Corpuscular Volume 86.4 fL (80.0-98.0); Mean Platelet Volume 10.8 fL (9.4-12.4); Monocytes Absolute Auto 0.7 X10*3/uL (0.1-1.2); Monocytes Percent Auto 6.3 % (2-11); Neutrophils Absolute Auto 8.3 x10*3/uL (2.0-8.3); Platelet Count 264 X10*3/uL (160-400); White Blood Count 11.3 X10*3/uL (4.8-10.8)
[2022-10-12 21:53] LABS: Appearance Urine Turbid; Color Urine Yellow; Glucose Urine UA Negative (Negative); Leukocyte Esterase Urine Negative (Negative); Nitrite Urine Negative (Negative); PH 7.5 (5.0-9.0); Urine Blood Negative (Negative); Urine Ketones Negative (Negative); Urine Protein Negative (Neg-Trace)
[2022-10-12 22:03] LABS: Alanine Aminotransferase 28 U/L (0-40); Albumin Level 4.2 g/dL (3.5-5.0); Alkaline Phosphatase 83 U/L (39-117); Anion Gap 11 (12-20); Aspartate Amino Transferase 27 U/L (5-37); Bilirubin Direct 0.3 mg/dL (0.0-0.5); Bilirubin Total 0.7 mg/dL (0.0-1.0); Blood Urea Nitrogen 11 mg/dL (9-16); Calcium 9.7 mg/dL (8.4-10.2); Carbon Dioxide 28 mmol/L (22-29); Chloride 106 mmol/L (96-108); Creatinine Clr Calc Pharmacy 140.2; Estimated Glomerular Filt Rate > 60; Glucose Random 87 mg/dL (60-115); Magnesium 2.4 mg/dL (1.6-2.6); Potassium 3.7 mmol/L (3.3-5.1); Sodium 141 mmol/L (135-145); Total Protein 7.7 g/dL (6.5-8.0)
[2022-10-12 22:46] VITALS: BP 139/93; PULSE 97; RESP 18; TEMP 37.2; O2SAT 99
[2022-10-13 05:07] LABS: CT PCR NOT DETECTED (Not Detect.); NG PCR NOT DETECTED (Not Detect.)
== END 2022-10-12 23:52 | disposition home or self-care (01) ==
PROVIDERS: Physician Assistant; Emergency Provider Internal Medicine; PCP Family Medicine
DX: N48.1 Balanitis (principal); R19.7 Diarrhea, unspecified; Z79.899 Other long term (current) drug therapy
CPT/HCPCS: 0353U; 36415; 80048; 80076; 81003; 83735; 85025; 99283

== ENCOUNTER → 2022-10-13 11:34 | Outpatient (AMB) | payer BC, SELFPAY ==
--- NOTE | 2022-10-13 11:43 | AM.OFFWIN_ITS ---
Intake Vital Signs 10/13/22 11:44 Height 5 ft 8 in BP 122/80 Blood Pressure Location Lt brachial Position Sitting Pulse 99 Pulse Source Pulse Oximeter Temp 99 F Temp Source Temporal Artery Scan Pulse Oximetry (%) 100 Oxygen Delivery Method Room Air Intake Visit Reasons: EP STD testing Intake Note: Pt is here requesting to be tested for possible STI's. Pt states he was in [facility] on 10/12/22 and had a urine and blood test but is requesting another one. Pt states he was prescribed clotrinmazole topical cream but has not yet started it as it was just prescribed an hour ago. Patient Tobacco Use Status: Never used Tobacco Allergies No Known Allergies Allergy (Verified 10/13/22 11:44) Do you need a note to return to daycare/school/sports/work: No HPI HPI Comments History of Present Illness Details The patient presents to urgent care for evaluation of a lesion on his penis. He was in the emergency department yesterday and had this looked at by the ER provider who suspected this may be a fungal infection and prescribed clotrimazole. Patient is now concerned this may in fact the penile cancer. He is requesting further blood testing. He was screened for GC/chlamydia while in the ED but did not have serum STD blood testing and is requesting this as well. [facility] Social History Housing: House Patient Tobacco Use Status: Never used Tobacco Current occupational status: employed Review of Systems Const Denies headache(s) ENT Denies headache(s) GI Denies abdominal pain and Denies diarrhea Neuro Denies headache(s) Physical Exam Vital Signs: Last Vital Signs Temp 99 F 10/13/22 11:44 Pulse 99 10/13/22 11:44 BP 122/80 10/13/22 11:44 Pulse Ox 100 10/13/22 11:44 Oxygen Delivery Method Room Air 10/13/22 11:44 Const General: healthy appearing and no acute distress HEENT Head: Yes normal to inspection Resp Effort & Inspection: normal respiratory effort and able to speak in complete sentences GI Inspection: Yes normal to inspection Other: Evaluated with a female medical professionals in the room: Uncircumcised penis, no penile discharge no erythema or rashes. To the left aspect of the glans there is a whitish discoloration to the skin, it is not able to be scraped off and does not appear consistent with Paulette. Assessment & Plan Assessment & Plan (1) Penile lesion: Code(s): N48.9 - Disorder of penis, unspecified Plan Whitish discoloration to the tip of the penis does not look especially consistent with fungal infection though recommend patient to follow course of treatment to see if this alleviates the symptoms. Will send patient for blood work to complete the STI workup. In addition patient will contact PCP for referral to Urology for definitive assessment of lesion on his penis. Orders: Orders Hepatitis C Antibody Today Z71.1 - Person with feared health complaint in whom no diagnosis is made HIV Ab/Ag Today Z20.2 - Contact with and (suspected) exposure to infections with a predominantly sexual mode of transmission Syphilis Screen Today Z20.2 - Contact with and (suspected) exposure to infections with a predominantly sexual mode of transmission Coding Level of Care Code Est Pt Level 3 (62233) Diagnoses Penile lesion N48.9
[2022-10-13 11:44] VITALS: BP 122/80; PULSE 99; TEMP 37.2; O2SAT 100
== END ==
PROVIDERS: PCP Family Medicine; Visit Provider Emergency Medicine
DX: N48.9 Disorder of penis, unspecified (principal)
CPT/HCPCS: 99213

== ENCOUNTER 2022-10-13 12:27 | Outpatient (REF) | payer BC, SELFPAY ==
[2022-10-14 02:59] LABS: Syphilis Screen Nonreactive (Nonreactive)
[2022-10-14 03:14] LABS: HIV AB/AG Nonreactive (Nonreactive); HIV Num 1 0.05 S/CO (0.00-0.99); ~HepC Num1 0.07 S/CO (0.00-0.79); ~Hepatitis C Antibody Nonreactive (Nonreactive)
== END 2022-10-13 12:28 | disposition home or self-care (01) ==
LOC: HO.HMGCLDS 12:27
PROVIDERS: PCP Family Medicine; Visit Provider Emergency Medicine
DX: Z11.4 Encounter for screening for human immunodeficiency virus [HIV] (principal); Z20.2 Contact with and (suspected) exposure to infections with a predominantly sexual mode of transmission; Z71.1 Person with feared health complaint in whom no diagnosis is made
CPT/HCPCS: 36415; 86780; 86803; 87389

== ENCOUNTER 2022-12-09 21:49 | Emergency (ER) | payer BC, SELFPAY ==
[2022-12-09 22:01] VITALS: BP 148/89; PULSE 105; RESP 18; TEMP 36.8; O2SAT 98; BMI 39.9
[2022-12-10 00:29] VITALS: BP 123/84; PULSE 88; RESP 16; TEMP 36.8; O2SAT 95
--- NOTE | 2022-12-10 00:29 | ED.GENADULT ---
HPI - General Adult General Chief complaint: Abdominal Pain Stated complaint: abd pain Time Seen by Provider: 12/10/22 00:18 Source: patient, RN notes reviewed and old records reviewed Mode of arrival: ambulatory Limitations: no limitations History of Present Illness HPI narrative: 32-year-old male presents for evaluation of abdominal pain He reports his symptoms have been on and off over the last few weeks His pain is in the upper mid abdomen and left upper quadrant He describes the pain as burning in nature He is unsure if the pain is related to eating but has been able to eat with a normal appetite He denies any nausea or vomiting He has had normal bowel movements with this last bowel movement being about 5 hours prior Denies any previous abdominal surgeries No other complaints or concerns at this time Related Data Previous Rx's Medication Instructions Recorded clotrimazole 1 % topical cream 1 appl topical BID 1 week #30 grams 10/12/22 omeprazole 20 mg capsule,delayed 20 mg PO DAILY #14 caps 12/10/22 release sucralfate 1 gram tablet 1 g PO BID PRN abdominal pain #20 12/10/22 tabs Allergies Allergy/AdvReac Type Severity Reaction Status Date / Time No Known Allergies Allergy Verified 12/09/22 22:00 Review of Systems Constitutional: Constitutional: Denies chills and Denies fever(s) Cardiovascular: Cardiovascular: Denies dyspnea Respiratory: Respiratory: Denies cough and Denies dyspnea Gastrointestinal: Gastrointestinal: Reports abdominal pain, Denies nausea and Denies vomiting Musculoskeletal: Musculoskeletal: Denies back pain PMFSH Social History Social History Housing: House Alcohol intake: current Alcohol intake frequency: holidays/special occasions only Patient Tobacco Use Status: Never used Tobacco Smoked in Last 30 Days: No Use of substances other than those prescribed or required for medical reasons: No Advance Directives: No Advance Directives Information Provided: Yes Current occupational status: employed Physical Exam ED Vital Signs: Vital Signs - 24 hr 12/09/22 22:01 12/10/22 00:29 Temperature 98.2 F 98.2 F Pulse Rate 105 H 88 Respiratory Rate 18 16 Blood Pressure 148/89 H 123/84 Pulse Oximetry 98 95 Oxygen Delivery Method Room Air Room Air BMI result Body Mass Index 39.9 Const General: healthy appearing, comfortable, no acute distress, alert and awake Nutritional Appearance: well nourished Orientation/consciousness: patient oriented x3 HENMT Head: Yes normocephalic and Yes atraumatic Eyes Eyelids: Yes eyelids normal Conjunctivae: conjunctivae normal Sclerae: sclerae normal Corneas: corneas normal Pupils: Equal, round and reactive pupils present EOM: EOMs intact bilaterally Neck Neck: Yes full ROM Resp Effort & Inspection: normal respiratory effort, able to speak in complete sentences and not labored GI Inspection: No distended Palpation (GI): Soft to palpation, not firm, nontender, no guarding and not rigid Auscultation: normoactive bowel sounds Skin General skin exam: elasticity normal Neuro General: patient oriented x3 Cranial nerves: Yes Equal, round and reactive pupils present and Yes Bilaterally intact EOM present Cognition (Neuro): normal cognition Extrem Other: Moving all extremities well without any obvious deformities Medications Administered Discontinued Medications Generic Name Dose Route Start Last Admin Trade Name Freq PRN Reason Stop Dose Admin Pantoprazole Sodium 40 mg 12/10/22 00:28 12/10/22 00:41 Pantoprazole Sodium 40 Mg/10 Ml Vial IVPUSH 12/10/22 00:29 40 mg ONCE ONE Administration Medical Decision Making Medical Decision Making [facility] Narrative: 32-year-old male presents for evaluation of intermittent upper abdominal pain. He is currently asymptomatic. His abdominal exam is benign. He does have a slight leukocytosis which is equivocal. This may related to his disc most likely diagnosis in is peptic ulcer disease/GERD or gastritis. Given that he describes a burning abdominal pain in the left upper quadrant to epigastric region. He has no right upper quadrant tenderness, no right lower quadrant tenderness. He is having normal bowel movements. This makes biliary disease, appendicitis, bowel obstruction much less likely. I discussed all this with the patient. Given his abdominal exam is reassuring, LFTs are within normal limits, renal function within normal limits, I feel that a CT scan will be low yield and will defer this at this time. Will treat the patient's symptoms with PPI and You discharged to follow-up with GI Lab Data 12/09/22 22:16 12/09/22 22:16 Labs: Lab Results 12/09/22 12/09/22 Range/Units 22:16 23:38 WBC 12.6 H (4.8-10.8) X10*3/uL RBC 5.10 (4.60-5.80) X10*6/uL Hgb 14.5 (14.0-18.0) g/dl Hct 43.4 (42.0-52.0) % MCV 85.1 (80.0-98.0) fL MCH 28.4 (27.0-33.0) pg MCHC 33.4 (31.0-36.0) g/dl RDW 13.2 (11.0-16.0) % Plt Count 257 (160-400) X10*3/uL MPV 10.8 (9.4-12.4) fL Immature Gran % (Auto) 0.3 (0.0-0.4) % Neut % (Auto) 66.1 (45-73) % Lymph % (Auto) 24.7 (20-40) % [place] % (Auto) 7.6 (2-11) % Eos % (Auto) 0.7 (0-4) % Baso % (Auto) 0.6 (0-2) % Lymph # (Auto) 3.1 (1.2-4.9) X10*3/uL [place] # (Auto) 1.0 (0.1-1.2) X10*3/uL Eos # (Auto) 0.1 (0.0-0.4) X10*3/uL Baso # (Auto) 0.1 (0.0-0.2) X10*3/uL Abs Immat Gran (auto) 0.04 H (0.00-0.03) X10*3/uL Absolute Neuts (auto) 8.3 (2.0-8.3) x10*3/uL Absolute Nucleated RBC 0.000 (0.0-0.012) X10*3/uL Nucleated RBC % (auto) 0.0 (0.0-0.2) /100WBC Sodium 145 (135-145) mmol/L Potassium 3.7 (3.3-5.1) mmol/L Chloride 108 (96-108) mmol/L Carbon Dioxide 28 (22-29) mmol/L Anion Gap 13 (12-20) BUN 12 (9-16) mg/dL Creatinine 0.90 (0.5-1.4) mg/dL Estim Creat Clear Calc 149.1 Estimated GFR > 60 Random Glucose 84 (60-115) mg/dL Calcium 9.4 (8.4-10.2) mg/dL Total Bilirubin 0.3 (0.0-1.0) mg/dL AST 20 (5-37) U/L ALT 24 (0-40) U/L Alkaline Phosphatase 78 (39-117) U/L Total Protein 7.7 (6.5-8.0) g/dL Albumin 4.4 (3.5-5.0) g/dL Lipase 20 (8-78) U/L Urine Color Yellow Urine Appearance Clear Urine pH 7.0 (5.0-9.0) Ur Specific [place] 1.025 (1.005-1.025) Urine Protein Negative (Neg-Trace) mg/dL Urine Glucose (UA) Negative (Negative) mg/dL Urine Ketones Negative (Negative) mg/dL Urine Blood Negative (Negative) Urine Nitrite Negative (Negative) Ur Leukocyte Esterase Negative (Negative) Discharge Plan Discharge Clinical Impression: Abdominal pain Patient Disposition: Home, Self-Care Instructions: Gastroesophageal Reflux Disease (ED) Additional Instructions: Your symptoms are most consistent with GERD or peptic ulcer disease Take omeprazole daily for the next 2 weeks. He may use sucralfate as needed for breakthrough abdominal pain Follow-up with GI at the or provided Return for new or worsening symptoms Prescriptions: New omeprazole 20 mg capsule,delayed release(DR/EC) 20 mg PO DAILY Qty: 14 0RF sucralfate 1 gram tablet 1 g PO BID PRN (Reason: abdominal pain) Qty: 20 0RF No Action clotrimazole 1 % cream 1 appl topical BID 7 Days Qty: 30 0RF Referrals: Fritz Fraga MD [Physician] - (? endoscopy for upper abdominal pain) Interventions: ED Discharge Assessment Last Done: 12/10/22 00:46 Discharge Date/Time: 12/10/22 00:48 Print Language: Indonesian
== END 2022-12-10 00:48 | disposition home or self-care (01) ==
PROVIDERS: Emergency Provider Student in an Organized Health Care Education/Training Program
DX: R10.12 Left upper quadrant pain (principal)
CPT/HCPCS: 36415; 80053; 81003; 83690; 85025; 96374; 99284

== ENCOUNTER 2022-12-21 12:51 | Outpatient (AMB) | payer BC, SELFPAY ==
[2022-12-21 12:56] VITALS: BP 120/70; PULSE 74; RESP 16; TEMP 37.1; O2SAT 98; BMI 39.3
--- NOTE | 2022-12-21 12:56 | A.OFFPC_ITS ---
Vital Signs 12/21/22 12:56 Height 5 ft 8 in Weight 258 lb 4 oz BMI 39.3 BP 120/70 Blood Pressure Location Lt brachial Position Sitting Respiration 16 Pulse 74 Pulse Source Pulse Oximeter Temp 98.7 F Temp Source Oral Pulse Oximetry (%) 98 Oxygen Delivery Method Room Air Oxygen Flow Rate 98.7 Intake Visit Reasons: ED [facility] [place] 12/10/22-Abdominal Pain Intake Note: Patient is here for follow up on abdominal pain after feeling bloating with pain, he was told it may be peptic ulcer. He states he has black dots in his stool. He saw a light red color. Patient would like to talk about weight loss. Allergies No Known Allergies Allergy (Verified 12/21/22 13:22) Medication List - Last Reconciled 12/21/22 by Roxana Hill CNP clotrimazole 1% 1 appl topical BID 1 week omeprazole 20 mg PO DAILY sucralfate 1 g PO BID PRN Tobacco use date assessed: 11/04/20 Dental Screening Dental Screen Date: 12/21/22 Did you have a dental visit in the last 12 months?: Yes Did you have a dental problem in the last 6 months where you did not have access to dental care?: No Was dental information given to patient?: Patient has dentist HPI HPI Comments History of Present Illness Details 32-year-old male presents for a follow-u p visit. He was recently evaluated and treated at [facility] ED on 12/10/2022 for abdominal pain. Labs were unrevealing. He was prescribed omeprazole and sucralfate for possible peptic ulcer/GERD or gastritis. He states that he continues to experience the pain which is less severe since he started taking the omeprazole and suralfate. He notes that the pain is burning to his epigastrium and RUQ. He has been experiencing, intermittently, for the past one and half month. No n/v/d, constipation or bowel changes. [facility] Medical History Pain, gastric Social History Housing: House Alcohol intake: current Alcohol intake frequency: holidays/special occasions only Patient Tobacco Use Status: Never used Tobacco Current occupational status: employed Cognitive needs: No Hearing needs: No Vision needs: No Questionnaire PHQ-9 Over the last 2 weeks, how often have you been bothered by any of the following problems? 1. Little interest or pleasure in doing things: not at all 2. Feeling down, depressed, or hopeless: not at all 3. Trouble falling or staying asleep, or sleeping too much: not at all 4. Feeling tired or having little energy: several days 5. Poor appetite or overeating: several days 6. Feeling bad about yourself - or that you are a failure or have let yourself or your family down: not at all 7. Trouble concentrating on things, such as reading the newspaper or watching television: not at all 8. Moving or speaking so slowly that other people could have noticed. Or the opposite - being so fidgety or restless that you have been moving around a lot more than usual: not at all 9. Thoughts that you would be better off or of hurting yourself in some way: not at all Total score: 2 Source: Developed by Drs. Robert Sarah, Abigail Herzog, Misha Ca and colleagues, with an educational pete from [employer] Thrive Questionnaire Date Thrive assessed: 11/04/20 I am a: Patient What is your living situation today?: I have a steady place to live Within the past 12 months, did the food you bought not last and you didn't have the money to get more?: Never true Within the past 12 months, did you worry whether your food would run out before you got money to buy more?: Never true Do you have trouble paying for medicines?: No Do you have trouble getting transportation to medical appointments?: No Do you have trouble paying your heating and electricity bill?: No Do you have trouble taking care of your child, family member or friend?: No Do you have trouble with day-to-day activities such as bathing, preparing meals, shopping, managing finances, etc.?: No Are you currently unemployed and looking for a job?: No Are you interested in more education?: Yes AUDIT C Alcohol Use Questionnaire (AUDIT-C) 1. How often do you have a drink containing alcohol?: Monthly or less 2. How many drinks containing alcohol do you have on a typical day when you are drinking?: 1 or 2 3. How often do you have six or more drinks on one occasion?: Never Total Score: 1 HOME-7 AMB Questionnaire HOME-7 Date HOME - 7 assessed: 12/21/22 Feeling nervous, anxious, or on edge: 2 = More than half the days Not being able to stop or control worryin = More than half the days Worrying too much about different things: 0 = Not at all Trouble relaxin = Not at all Being so restless that it is hard to sit still: 0 = Not at all Becoming easily annoyed or irritable: 0 = Not at all Feeling afraid as if something awful might happen: 1 = Several days Total HOME-7 score (0-4 normal; 5-9 mild; 10-14 moderate; 15-21 severe): 5 Source: Developed by Drs. Robert Sarah, Abigail Herzog, Misha Ca and colleagues, with an educational pete from [employer] Review of Systems Const Details: Const Denies chills, Denies fatigue, Denies fever(s), Denies headache(s) and Denies weakness ENT Denies dizziness and Denies headache(s) Card Denies chest pain, Denies lightheadedness, Denies dyspnea and Denies other (Palpitations) Resp Denies cough, Denies dyspnea, Denies wheezing and Denies other ( shortness of breath) GI Denies abdominal pain, Denies melena, Denies hematochezia, Denies change in bowel habits, Denies dyspepsia and Denies nausea Denies hematuria and Denies dysuria Musc Denies abnormal gait, Denies myalgias, Denies arthralgias, Denies numbness and Denies tingling Skin/Breast Denies rash, Denies unusual bruising and Denies wounds Neuro Denies abnormal gait, Denies dizziness, Denies headache(s), Denies memory loss, Denies numbness, Denies Sensory deficit (Neuro), Denies tingling and Denies weakness Psych Denies anxiety, Denies depression, Denies memory loss Endo Denies cold intolerance, Denies fatigue, Denies heat intolerance, Denies polydipsia and Denies polyuria Aller/Immun Denies wheezing Physical exam (Primary Care) Vital Signs: Last Vital Signs Temp 98.7 F 12/21/22 12:56 Pulse 74 12/21/22 12:56 Resp 16 12/21/22 12:56 BP 120/70 12/21/22 12:56 Pulse Ox 98 12/21/22 12:56 Oxygen Delivery Method Room Air 12/21/22 12:56 Oxygen Flow Rate 98.7 12/21/22 12:56 BMI result Body Mass Index 39.3 Tobacco/Smoking Status: Tobacco use Status Tobacco use date assessed 11/04/20 12/21/22 13:02 Patient Tobacco Use Status Never used Tobacco 12/21/22 13:02 PHQ-9: PHQ-9 Score PHQ-9: Total score 2 12/21/22 13:23 Thrive Assessment: Date of Thrive Assessment Date Thrive assessed 11/04/20 12/21/22 13:02 Const Other: General: no acute distress and well developed Nutritional Appearance: well nourished Orientation/consciousness: patient oriented x3 HENMT Head: Yes normocephalic and Yes atraumatic Eyes General: appearance normal, both eyes and all related structures Pupils: Equal, round and reactive pupils present EOM: EOMs intact bilaterally Resp Effort & Inspection: normal respiratory effort Auscultation: clear to auscultation bilaterally Cardio Rate: regular rate Rhythm: regular rhythm Heart sounds: S1 normal heart sound present, S2 normal heart sound present, no gallops, no murmurs and no rubs GI Palpation (GI): No Abdominal aortic bruit present, Soft to palpation, nontender, No hepatosplenomegaly present and No Rebound tenderness present Auscultation: normal bowel sounds General: Yes no CVA tenderness Back/Spine/Pelvis Back: no CVA tenderness Cervical Spine: cervical ROM normal and No Cervical spine tenderness Thoracic/Lumbar Spine: thoraco-lumbar ROM normal, No pain with thoraco-lumbar ROM, No thoracic spinal tenderness and No lumbar spinal tenderness Extrem General: Yes normal to inspection, No edema and No calf tenderness Skin General: warm and dry. Normal skin color. Normal skin turgor Lesions: no lesions Rashes: no rashes Trauma: no lacerations or abrasions Wounds: no wounds Nails: normal Neuro General: patient oriented x3, gait normal and no focal neuro deficit Cranial nerves: Yes Equal, round and reactive pupils present Cognition (Neuro): normal cognition Gait exam (Neuro): Normal gait present Sensory Exam: No Sensory deficit (Neuro) Psych Appearance: grossly normal Affect: normal affect Attitude: cooperative Thought process: Normal thought process present Assessment and Plan Assessment & Plan (1) Abdominal pain: Code(s): R10.9 - Unspecified abdominal pain Qualifiers: Abdominal location: epigastric Qualified Code(s): R10.13 - Epigastric pain Plan: He was recently evaluated and treated at [facility] ED for abdominal pain. Omeprazole and sucralfate will prescribe for possible peptic ulcer/GERD or gastritis. He states that he continues to experience the pain which is less severe since he started taking the omeprazole and suralfate. He notes that the pain is burning to his epigastrium and RUQ. He has been experiencing, intermittently, for the past one and half month. He admits to making healthy dietary choices. No n/v/d, constipation or bowel changes. Continue to take omeprazole and sucralfate as prescribed Avoid fatty or greasy foods Follow-up with PCP with worsening or new symptoms. May go to the ED Verbalized understanding and agreed with treatment plan. Coding Level of Care Code TCM Mod MDM <= 14 Days Diagnoses Epigastric pain R10.13 Abdominal location: epigastric
== END 2022-12-21 13:41 | disposition home or self-care (01) ==
PROVIDERS: Visit Provider Nurse Practitioner Family
DX: R10.13 Epigastric pain (principal)
CPT/HCPCS: 99214

== ENCOUNTER 2023-01-04 15:16 | Outpatient (AMB) | payer BC, SELFPAY ==
[2023-01-04 15:18] VITALS: BP 110/80; PULSE 88; TEMP 36.5; O2SAT 97; BMI 38.3
--- NOTE | 2023-01-04 15:18 | AM.OFFWIN_ITS ---
Intake Vital Signs 01/04/23 15:18 Height 5 ft 8 in Weight 252 lb BMI 38.3 BP 110/80 Blood Pressure Location Lt brachial Position Sitting Pulse 88 Pulse Source Pulse Oximeter Temp 97.7 F Temp Source Temporal Artery Scan Pulse Oximetry (%) 97 Oxygen Delivery Method Room Air Intake Visit Reasons: EP, dark spots on head and body Intake Note: pt is here for c/o dark spots Patient Tobacco Use Status: Never used Tobacco Allergies No Known Allergies Allergy (Verified 01/04/23 15:19) Do you need a note to return to daycare/school/sports/work: Yes HPI HPI Comments History of Present Illness Details 32 yo M that presents requesting derm re fferal. Patient reports several new spots appear his scalp which he has not noticed before. 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 [facility] Medical History Pain, gastric Social History Housing: House Alcohol intake: current Alcohol intake frequency: holidays/special occasions only Patient Tobacco Use Status: Never used Tobacco Current occupational status: employed Cognitive needs: No Hearing needs: No Vision needs: No Review of Systems Skin/Breast Reports lesions Physical Exam Vital Signs: Last Vital Signs Temp 97.7 F 01/04/23 15:18 Pulse 88 01/04/23 15:18 BP 110/80 01/04/23 15:18 Pulse Ox 97 01/04/23 15:18 Oxygen Delivery Method Room Air 01/04/23 15:18 BMI result Body Mass Index 38.3 Const General: cooperative, healthy appearing, no acute distress and alert Orientation/consciousness: patient oriented x3 Limitations: no limitations HEENT Head: Yes normal to inspection Ears: hearing grossly normal bilaterally General nose exam: Normal external nose present Resp Effort & Inspection: normal respiratory effort and able to speak in complete sentences Cardio Rate: regular rate Skin Other: 1-2 Brown appearing nevi on the scalp. 1 red small circular lesion in the scalp. Neuro General: patient oriented x3 Extrem General: Yes normal to inspection Assessment & Plan Assessment & Plan (1) Rash: Code(s): R21 - Rash and other nonspecific skin eruption Plan Lesion resemble bengign nevi. other lesion resemble ?hemangioma. Agree with patient. no concerning features on exam. Patient could benefit from derm referral for skin checks. Unfortunately unable to provide such referral from the walk-in clinic. Will message patients PCP and recommend patient f/u. Discharge instructions, follow up and treatment are discussed with patient in my usual fashion. Alternatives in treatment are also discussed. The patient will return for worsening symptoms or as needed. Advised that any labs/imaging ordered will be followed up on and contact made if further treatment needed. Counseled that patient's condition may require further evaluation and/or treatme nt. Symptoms of concern for worsening disorder discussed in detail in my customary manner. Patient does verbalize understanding of the plan, there are no apparent barriers to communication. The patient is given the opportunity to ask questions and have them answered to his/her satisfaction Coding Level of Care Code Est Pt Level 3 (85530) Diagnoses Rash R21
== END 2023-01-04 15:34 | disposition home or self-care (01) ==
PROVIDERS: Visit Provider Physician Assistant
DX: R21 Rash and other nonspecific skin eruption (principal)
CPT/HCPCS: 99213

== ENCOUNTER 2023-02-03 08:49 | Outpatient (AMB) | payer BC, SELFPAY ==
--- NOTE | 2023-02-03 08:56 | A.OFFPC_ITS ---
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 Gastelum requesting a PE Allergies No Known Allergies Allergy (Verified 01/04/23 15:19) Tobacco use date assessed: 02/03/23 Dental Screening Dental Screen Date: 02/03/23 Did you have a dental visit in the last 12 months?: Yes Did you have a dental problem in the last 6 months where you did not have access to dental care?: No Was dental information given to patient?: Patient has dentist HPI HPI Comments History of Present Illness Details The patient is a 32-year-old male here to establish care. He has recen t visits to the emergency room, and walk-in clinic 6 weeks prior to this appointment for concerns of epigastric pain. While in the emergency room he was diagnosed with GERD. He was given omeprazole and sucralfate for 2 week trial, which he states helped the pain and amount of occurrences, but that the problem has not completely resolved. He states he has been trying to eat healthier as directed and has been exercising. He denies any nausea, vomiting, blood in stool, dizziness, or diarrhea. [facility] Medical History (Updated 02/03/23 @ 10:11 by SHARON Singer) Encounter for routine adult physical exam with abnormal findings Pain, gastric Family History (Updated 02/03/23 @ 09:21 by SHARON Singer) Father Multiple myeloma Diabetes type 2, controlled Social History Housing: House Alcohol intake: current Alcohol intake frequency: holidays/special occasions only Patient Tobacco Use Status: Never used Tobacco e-Cigarette/Vaping Use: Never Used Current occupational status: employed Cognitive needs: No Hearing needs: No Vision needs: No Questionnaire PHQ-9 Over the last 2 weeks, how often have you been bothered by any of the following problems? 1. Little interest or pleasure in doing things: not at all 2. Feeling down, depressed, or hopeless: several days 3. Trouble falling or staying asleep, or sleeping too much: not at all 4. Feeling tired or having little energy: not at all 5. Poor appetite or overeating: not at all 6. Feeling bad about yourself - or that you are a failure or have let yourself or your family down: not at all 7. Trouble concentrating on things, such as reading the newspaper or watching television: not at all 8. Moving or speaking so slowly that other people could have noticed. Or the opposite - being so fidgety or restless that you have been moving around a lot more than usual: not at all 9. Thoughts that you would be better off or of hurting yourself in some way: not at all Total score: 1 Depression Screening Interpretation: Negative Depression Screening Done: Yes 14884 - PHQ-9 Billing: Yes Source: Developed by Drs. Robert Sarah, Abigail Herzog, Misha Ca and colleagues, with an educational pete from [employer]. Thrive Questionnaire Date Thrive assessed: 02/03/23 I am a: Patient What is your living situation today?: I have a steady place to live Within the past 12 months, did the food you bought not last and you didn't have the money to get more?: Never true Within the past 12 months, did you worry whether your food would run out before you got money to buy more?: Never true Do you have trouble paying for medicines?: No Do you have trouble getting transportation to medical appointments?: No Do you have trouble paying your heating and electricity bill?: I choose not to answer this question Do you have trouble taking care of your child, family member or friend?: No Do you have trouble with day-to-day activities such as bathing, preparing meals, shopping, managing finances, etc.?: No Are you currently unemployed and looking for a job?: No Are you interested in more education?: Yes AUDIT C Alcohol Use Questionnaire (AUDIT-C) 1. How often do you have a drink containing alcohol?: Monthly or less 2. How many drinks containing alcohol do you have on a typical day when you are drinking?: 1 or 2 3. How often do you have six or more drinks on one occasion?: Never Total Score: 1 HOME-7 AMB Questionnaire HOME-7 Date HOME - 7 assessed: 12/21/22 Feeling nervous, anxious, or on edge: 0 = Not at all Not being able to stop or control worryin = Not at all Worrying too much about different things: 0 = Not at all Trouble relaxin = Several days Being so restless that it is hard to sit still: 1 = Several days Becoming easily annoyed or irritable: 1 = Several days Feeling afraid as if something awful might happen: 0 = Not at all Total HOME-7 score (0-4 normal; 5-9 mild; 10-14 moderate; 15-21 severe): 3 Source: Developed by Drs. Robert Sarah, Abigail Herzog, Misha Ca and colleagues, with an educational pete from [employer]. HOME-7 Assessment Billing HOME-7 Assessment Tool: HOME-7 Assessment 21437 Review of Systems Const Details: Constitutional : No unintentional Weight loss, No Fever, No Chills, No Fatigue, No Malaise ENT/Mouth : No sore throat, No Rhinorrhea Eyes: No Eye Pain, No Swelling, No Redness Cardiovascular : No Chest Pain, No SOB, No Dyspnea on Exertion, No Orthopnea, No Edema, No Palpitations Respiratory : No Cough, No Sputum, No Wheezing Gastrointestinal : No Nausea, No Vomiting, No Diarrhea, No Constipation, Admits occasional epigastric pain, No Hematochezia, No Melena Genitourinary : No Dysuria, No Urinary Frequency, No Hematuria, Musculoskeletal : No joint pain, No Myalgias, No Joint Swelling Skin : Nevi of the scalp Neuro : No Weakness, No Numbness, No Dizziness, No Headache Psych : No Anxiety/Panic, No Depression Heme/Lymph: No Bruising, No Bleeding,No Lymphadenopathy Endocrine : No Polyuria, No Polydipsia All other systems reviewed and are negative Physical exam (Primary Care) Vital Signs: Last Vital Signs Pulse 83 02/03/23 08:57 BP 130/82 02/03/23 08:57 Pulse Ox 100 02/03/23 08:57 Oxygen Delivery Method Room Air 02/03/23 08:57 Vital signs have been reviewed and are stable BMI result Body Mass Index 38.0 Tobacco/Smoking Status: Tobacco use Status Tobacco use date assessed 02/03/23 02/03/23 09:01 Patient Tobacco Use Status Never used Tobacco 02/03/23 08:57 e-Cigarette/Vaping Use Never Used 02/03/23 09:01 PHQ-9: PHQ-9 Score PHQ-9: Total score 1 02/03/23 09:04 Depression Screening Interpretation: Negative Thrive Assessment: Date of Thrive Assessment Date Thrive assessed 02/03/23 02/03/23 09:04 Const Other: Appearance: Alert.? Oriented X3.? No acute distress.? Head: Normocephalic, atraumatic, no step-offs or deformities Eyes: Pupils equal, round and reactive to light.? ENT: Pharynx normal.?Septum midline, TM visible, pearly forrester and intact. Neck: Normal inspection.? Neck supple.? CVS: Normal heart rate and rhythm.? Pulses normal.? Respiratory: No respiratory distress.? Breath sounds normal.? Abdomen: Soft and nontender.? Skin: Skin warm and dry.? Normal skin color.? Normal skin turgor.? Extremities: No lower extremity edema. 5/5 strength to bilateral upper and lower extremities Back: no CVA tenderness bilaterally Neuro: Oriented X 3.? No motor deficit.? No sensory deficit. CN 2-12 intact Results Reviewed Results Reviewed: Will call patient with lab results when they are made available Assessment and Plan Assessment & Plan (1) Encounter for routine adult physical exam with abnormal findings: Comment: Will draw CBC, CMP, lipid profile, TSH, T4, vitamin D, lipase, and UA. Patient will have return follow-up for his annual physical in 1 year. He has been instructed he can make appointment for problem visit if something arises before that. Code(s): Z00.01 - Encounter for general adult medical examination with abnormal findings (2) Pain, gastric: Comment: Patient will be given omeprazole 20 mg to be taken daily in the morning for the next 4 weeks. He will also be given simethicone to be taken p.r.n. for gas pain and distention. He has been educated on proper diet in foods to avoid, he has been educated to avoid eating 3 hours before bedtime. We also discussed the importance of exercise. He has been informed of signs of worsening symptoms and when to return back to the office or when to present to the emergency room. Patient is agreeable to this plan Code(s): R10.9 - Unspecified abdominal pain Orders: Orders Comprehensive Met. Panel Today Z00. - Encounter for general adult medical examination with abnormal findings Lipid Panel Today Z00. - Encounter for general adult medical examination with abnormal findings Vitamin D 25-OH (D2 and D3) Today Z00. - Encounter for general adult medical examination with abnormal findings Complete Blood Count Auto Diff Today Z00. - Encounter for general adult medical examination with abnormal findings Lipase Today Z. - Encounter for general adult medical examination with abnormal findings TSH reflex Free T4 Today Z00. - Encounter for general adult medical examination with abnormal findings UA CC w/rflx Micro + Cult Today Z00. - Encounter for general adult medical examination with abnormal findings Medications: New simethicone (Gas Relief (simethicone)) 125 mg PO BID-QID PRN 30 caps 0RF abdominal distention omeprazole 20 mg PO DAILY 60 caps 0RF Coding Level of Care Code Est Pt Level 3 (84108) Diagnoses Encounter for routine adult physical exam with abnormal findings Z00. Pain, gastric R10.9 Additional Codes HOME-7 Assessment Billing - HOME-7 Assessment Tool: HOME-7 Assessment [id number] ([id number]) Time Spent (min) 30
[2023-02-03 08:57] VITALS: BP 130/82; PULSE 83; O2SAT 100; BMI 38.0
== END 2023-02-03 09:47 | disposition home or self-care (01) ==
PROVIDERS: Visit Provider Nurse Practitioner Primary Care
DX: Z00.01 Encounter for general adult medical examination with abnormal findings (principal); R10.9 Unspecified abdominal pain
CPT/HCPCS: 99499

== ENCOUNTER 2023-02-03 09:49 | Outpatient (REF) | payer BC, SELFPAY ==
[2023-02-03 13:48] LABS: MANUAL DIFF FLAG NO
[2023-02-03 13:52] LABS: Basophils Percent Auto 0.7 % (0-2); Eosinophils Percent Auto 0.5 % (0-4); Hematocrit 45.5 % (42.0-52.0); Hemoglobin 14.8 g/dl (14.0-18.0); Imm Gran Abs Auto 0.01 X10*3/uL (0.00-0.03); Imm Gran Pct Auto 0.2 % (0.0-0.4); Lymphocytes Absolute Auto 1.6 X10*3/uL (1.2-4.9); Lymphocytes Percent Auto 26.4 % (20-40); Mean Corpuscular HGB Conc 32.5 g/dl (31.0-36.0); Mean Corpuscular Hemoglobin 28.7 pg (27.0-33.0); Mean Corpuscular Volume 88.2 fL (80.0-98.0); Mean Platelet Volume 12.5 fL (9.4-12.4); Monocytes Absolute Auto 0.4 X10*3/uL (0.1-1.2); Monocytes Percent Auto 6.8 % (2-11); Neutrophils Percent Auto 65.4 % (45-73); Platelet Count 243 X10*3/uL (160-400); Red Blood Count 5.16 X10*6/uL (4.60-5.80); Red Cell Distribution Width 13.5 % (11.0-16.0); White Blood Count 6.1 X10*3/uL (4.8-10.8)
[2023-02-03 13:52] LABS: Appearance Urine Clear; Color Urine Yellow; Glucose Urine UA Negative (Negative); Leukocyte Esterase Urine Negative (Negative); Nitrite Urine Negative (Negative); PH 6.5 (5.0-9.0); Specific Gravity - Urine 1.025 (1.005-1.025); Urine Blood Negative (Negative); Urine Ketones Negative (Negative); Urine Protein Negative (Neg-Trace)
[2023-02-03 14:18] LABS: Alanine Aminotransferase 25 U/L (0-40); Albumin Level 4.5 g/dL (3.5-5.0); Alkaline Phosphatase 80 U/L (39-117); Anion Gap 10 (12-20); Aspartate Amino Transferase 22 U/L (5-37); Bilirubin Total 0.7 mg/dL (0.0-1.0); Blood Urea Nitrogen 10 mg/dL (9-16); Calcium 9.5 mg/dL (8.4-10.2); Carbon Dioxide 29 mmol/L (22-29); Chloride 106 mmol/L (96-108); Cholesterol 142 mg/dL (<200); Estimated Glomerular Filt Rate > 60; Glucose Random 97 mg/dL (60-115); HDL Cholesterol 44 mg/dL (>40); LDL Cholesterol Calculated 89 mg/dL (<100); Lipase 12 U/L (8-78); Sodium 141 mmol/L (135-145); Total Protein 7.9 g/dL (6.5-8.0); Triglycerides 48 mg/dL (<150)
[2023-02-03 14:26] LABS: TSH reflex Free T4 1.12 uIU/mL (0.32-4.0)
[2023-02-07 15:33] LABS: Vitamin D 25-OH, D2 <4 ng/mL; Vitamin D 25-OH, D3 14 ng/mL; Vitamin D 25-OH, Total 14 ng/mL (30-100)
== END 2023-02-03 09:50 | disposition home or self-care (01) ==
LOC: HO.HMGCLDS 09:49
PROVIDERS: Visit Provider Nurse Practitioner Primary Care
DX: Z00.01 Encounter for general adult medical examination with abnormal findings (principal); Z13.21 Encounter for screening for nutritional disorder; Z13.29 Encounter for screening for other suspected endocrine disorder; Z13.0 Encounter for screening for diseases of the blood and blood-forming organs and certain disorders involving the immune mechanism
CPT/HCPCS: 36415; 80053; 80061; 81003; 82306; 83690; 84443; 85025

== ENCOUNTER 2023-04-14 07:54 | Outpatient (AMB) | payer BC, SELFPAY ==
--- NOTE | 2023-04-14 08:01 | A.OFFPC_ITS ---
Vital Signs 04/14/23 08:02 Height 5 ft 8 in Weight 254 lb 2 oz BMI 38.6 BP 102/64 Blood Pressure Location Rt brachial Position Sitting Pulse 79 Pulse Source Pulse Oximeter Pulse Oximetry (%) 99 Oxygen Delivery Method Room Air Intake Visit Reasons: body hair loss over a few months Intake Note: Pt is here for his Hair loss and skin issues and pt has a list of issue to go over today Allergies No Known Allergies Allergy (Verified 04/14/23 08:53) Medication List - Last Reconciled 04/14/23 by SHARON Singer albuterol sulfate 90 mcg/actuation 1 inh inhalation QID PRN diclofenac sodium 1% 2 grams topical QID dicyclomine 20 mg PO BID pantoprazole 20 mg PO DAILY simethicone (Gas Relief (simethicone)) 125 mg PO BID-QID PRN Tobacco use date assessed: 04/14/23 Dental Screening Dental Screen Date: 04/14/23 Did you have a dental visit in the last 12 months?: Yes Did you have a dental problem in the last 6 months where you did not have access to dental care?: No Was dental information given to patient?: Patient has dentist HPI HPI Comments History of Present Illness Details Patient is a 32-year-old male here for a sick visit. Patient states that over the past 6 months he has noticed thinning hair on his back and arms. He states that his skin is oily and that he often gets acne and cysts. He has used [id number] medication and cleansers with little effect. As a child he has had history of oily skin and acne. The patient states he is also having intermittent epigastric and right upper quadrant pain and discomfort. He states he was taking pantoprazole sodium for the past month that was giving him some relief, but that he was still having frequent episodes of pain. Patient also states he has frequent loose stools. Denies blood in stool, denies nausea, vomiting, diarrhea, constipation. Denies chest pain, or shortness of breath. PENDING SALE TO [facility] Medical History Encounter for routine adult physical exam with abnormal findings Pain, gastric Family History Father Multiple myeloma Diabetes type 2, controlled Social History Housing: House Alcohol intake: current Alcohol intake frequency: holidays/special occasions only Patient Tobacco Use Status: Never used Tobacco e-Cigarette/Vaping Use: Never Used Current occupational status: employed Cognitive needs: No Hearing needs: No Vision needs: No Questionnaire Thrive Questionnaire Date Thrive assessed: 02/03/23 HOME-7 AMB Questionnaire HOME-7 Date HOME - 7 assessed: 12/21/22 Source: Developed by Drs. Robert Sarah, Abigail Herzog, Misha Ca and colleagues, with an educational pete from [employer]. Review of Systems Const Details: Constitutional : No Weight loss, No Fever, No Chills, No Fatigue, No Malaise Eyes: No Eye Pain, No Swelling, No Redness, No change in vision. Cardiovascular : No Chest Pain, No SOB, No Dyspnea on Exertion, No Orthopnea, No Edema, No Palpitations Respiratory : No Cough, No Sputum, No Wheezing Gastrointestinal : No Nausea, No Vomiting, No Diarrhea, No Constipation, Admits intermittent RUQ and Epigastric pain, No Hematochezia, No Melena. Musculoskeletal : Admits intermittent upper back pain. Skin : Admits hair loss on chest and arms. Neuro : No Weakness, No Numbness, No Dizziness, No Headache Psych : No Anxiety/Panic, No Depression Heme/Lymph: No Bruising, No Bleeding,No Lymphadenopathy Endocrine : No Polyuria, No Polydipsia All other systems reviewed and are negative Physical exam (Primary Care) Vital Signs: Last Vital Signs Pulse 79 04/14/23 08:02 BP 102/64 04/14/23 08:02 Pulse Ox 99 04/14/23 08:02 Oxygen Delivery Method Room Air 04/14/23 08:02 BMI result Body Mass Index 38.6 Tobacco/Smoking Status: Tobacco use Status Tobacco use date assessed 04/14/23 04/14/23 08:07 Patient Tobacco Use Status Never used Tobacco 04/14/23 08:02 e-Cigarette/Vaping Use Never Used 04/14/23 08:02 Thrive Assessment: Date of Thrive Assessment Date Thrive assessed 02/03/23 04/14/23 08:02 Const Other: Appearance: Alert.? Oriented X3.? No acute distress.? Head: Normocephalic, atraumatic. No hair loss on scalp. No flaking or lesions. Neck: Normal inspection.? Neck supple.? CVS: Normal heart rate and rhythm.? Pulses normal.? Respiratory: No respiratory distress.? Breath sounds normal.? Abdomen: Some epigastric tenderness. ?Negative mcburny point. Skin: Skin warm and dry.? Normal skin color. Some hair thinning on back and chest. ? Back: No midline tenderness, no C-spine tenderness, full range of motion, no CVA tenderness bilaterally. + Para-spinal muscle tenderness. Neuro: Oriented X 3.? No motor deficit.? No sensory deficit. CN 2-12 intact Assessment and Plan Assessment & Plan (1) Pain, gastric: Comment: Will order ultrasound of abdomen. Will order upper GI series. Patient is given dicyclomine to be taken as directed, pantoprazole. Patient has been educated on signs of worsening symptoms when to report to the office or when to present to the ED. Code(s): R10.9 - Unspecified abdominal pain Plan: Follow-up in 2 months (2) Thinning hair: Comment: Patient states he has excessive oil production and thinning hair on his arms chest and back. He has take currently taking a vitamin D3 supplement. Educated the patient on biotin. Will refer to Dermatology. Code(s): L65.9 - Nonscarring hair loss, unspecified (3) Neck discomfort: Comment: Patient states he has cracking in his neck, some muscular neck pain. Will order cervical x-ray. Will order diclofenac sodium for paraspinal and trapezius muscle discomfort. Patient educated on using proper posture, especially while on the computer, and while driving. Code(s): M54.2 - Cervicalgia Plan: Take your medications as prescribed. If you were prescribed antibiotics today, it is important that you take your medication to their entirety, do not skip any doses, do not finish them early. Follow-up with your primary care provider this week. Return to the emergency department with new or worsening symptoms. Such as fevers, chills, chest pain, shortness of breath, nausea, vomiting, dizziness, headache, vision changes, lethargy In case of emergency call 911 Plan Patient will follow-up in 2 months. Orders: Orders XR chest 2V Today R07.89 - Other chest pain XR cervical spine 2V Today M54.2 - Cervicalgia US abdomen complete Today R10.9 - Unspecified abdominal pain Medications: New diclofenac sodium 1% apply to single elbow, wrist or hand; for hand includes palm/fingers/back of hand 2 grams topical QID 100 grams 0RF dicyclomine 20 mg PO BID 60 tabs 0RF albuterol sulfate 90 mcg/actuation 1 inh inhalation QID PRN 8.5 grams 0RF shortness of breath or wheezing pantoprazole 20 mg PO DAILY 30 tabs 0RF Coding Level of Care Code Est Pt Level 3 (29199) Diagnoses Pain, gastric R10.9 Thinning hair L65.9 Neck discomfort M54.2 Time Spent (min) 30
[2023-04-14 08:02] VITALS: BP 102/64; PULSE 79; O2SAT 99; BMI 38.6
== END 2023-04-14 09:04 | disposition home or self-care (01) ==
PROVIDERS: Visit Provider Nurse Practitioner Primary Care
DX: R10.9 Unspecified abdominal pain (principal); L65.9 Nonscarring hair loss, unspecified; M54.2 Cervicalgia
CPT/HCPCS: 99214

== ENCOUNTER 2023-04-14 08:37 | Outpatient (REF) | payer BC, SELFPAY ==
--- NOTE | ~2023-04-14 | XR_ITS ---
EXAMINATION: XR CHEST CLINICAL INFORMATION: Chest pain. COMPARISON: None available. TECHNIQUE: 2 views of the chest were obtained. FINDINGS: The lungs are well expanded. No focal consolidation. No pleural effusion. Cardiac silhouette is within normal limits. XR/XR chest 2V IMPRESSION: No acute abnormality.
--- NOTE | ~2023-04-14 | XR_ITS ---
EXAMINATION: XR CERVICAL SPINE CLINICAL INFORMATION: Cervicalgia. COMPARISON: None available. TECHNIQUE: 3 views of the cervical spine were obtained. FINDINGS: There are no prevertebral soft tissue or bony abnormalities demonstrated. No compression fractures or subluxations are identified. Alignment is maintained at the atlanto-axial articulation. The disc spaces are preserved. No endplate changes are seen. The prevertebral soft tissues are normal. The foramina are patent. XR/XR cervical spine 2V IMPRESSION: Unremarkable examination.
--- NOTE | ~2023-04-14 | US_ITS ---
EXAMINATION: US ABDOMEN COMPLETE CLINICAL INFORMATION: Unspecified abdominal pain. COMPARISON: None available. TECHNIQUE: Real-time imaging of the abdominal viscera. Technically limited study due to patient's body habitus. FINDINGS: PANCREAS: Limited visualization. ABDOMINAL AORTA: The proximal, mid, and distal segments are normal in caliber. INFERIOR VENA CAVA: Visualized portions are normal. LIVER: The liver contour is normal. There is diffuse increased liver parenchymal echogenicity, consistent with hepatic steatosis. No focal hepatic lesion. There is no intrahepatic biliary duct dilatation seen. GALLBLADDER: The gallbladder is physiologically distended with layering stones. No wall thickening or pericholecystic fluid. COMMON BILE DUCT: Normal in caliber measuring 0.3 cm in diameter. RIGHT KIDNEY: No hydronephrosis. No renal calculi or focal parenchymal lesions. The kidney measures 10.7 cm in maximum dimension. LEFT KIDNEY: No hydronephrosis. No renal calculi or focal parenchymal lesions. The kidney measures 11.2 cm in maximum dimension. SPLEEN: The spleen measures 9.9 cm in maximum dimension. FREE FLUID: None. US/US abdomen complete IMPRESSION: Hepatic steatosis. Cholelithiasis without sonographic evidence of acute cholecystitis.
== END 2023-04-14 08:38 | disposition home or self-care (01) ==
LOC: HO.HMGCX 08:37
PROVIDERS: PCP Nurse Practitioner Primary Care; Visit Provider Nurse Practitioner Primary Care
DX: R07.89 Other chest pain (principal); M54.2 Cervicalgia; R10.9 Unspecified abdominal pain
CPT/HCPCS: 71046; 72040; 76700

== ENCOUNTER 2023-05-02 13:34 | Outpatient (AMB) | payer BC, SELFPAY ==
--- NOTE | 2023-05-02 13:38 | MHC.OFFVIS ---
Intake Vital Signs 05/02/23 13:40 Height 5 ft 8 in Weight 249 lb BMI 37.9 BP 136/81 Blood Pressure Location Rt brachial Position Sitting Pulse 72 Intake Visit Reasons: Calculus of gallbladder Intake Note: Patient referred by PCP Dr. Lambert for calculus of gallbladder. Recent ABD US on 04-14-23. 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 If symptoms of right upper quadrant/epigastric pain radiating around to his back. It has been going on for several months time. He thinks he has fatty food intolerance well. He has never been jaundiced before. Otherwise has regular bowel habits. No other GI issues or complaints. Workup including sonogram demonstrates cholelithiasis Chart was reviewed patient evaluated [facility] Medical History Encounter for routine adult physical exam with abnormal findings Pain, gastric Family History Father Multiple myeloma Diabetes type 2, controlled Social History Housing: House Alcohol intake: current Alcohol intake frequency: holidays/special occasions only Patient Tobacco Use Status: Never used Tobacco e-Cigarette/Vaping Use: Never Used Current occupational status: employed Cognitive needs: No Hearing needs: No Vision needs: No Physical Exam Vital Signs: Last Vital Signs Pulse 72 05/02/23 13:40 BP 136/81 05/02/23 13:40 BMI result Body Mass Index 37.9 Eyes Other: Anicteric Chest Other: Chest breath sounds bilaterally, HS 1 in 2 GI Other: Corpulent, soft, benign Assessment & Plan Assessment & Plan (1) Cholelithiases: Code(s): K80.20 - Calculus of gallbladder without cholecystitis without obstruction (2) Recurrent biliary colic: Code(s): K80.50 - Calculus of bile duct without cholangitis or cholecystitis without obstruction Plan Risks, benefits, alternatives laparoscopic possible open cholecystectomy reviewed the patient and included but not limited to bleeding, infection, recurrence of symptoms, numbness, pain, scarring, bowel or bile duct injury or leak and the patient wishes to proceed. All questions answered. Arrangements were made for this. Coding Level of Care Code New Pt Level 5 (66974) Diagnoses Cholelithiases K80.20 Recurrent biliary colic K80.50
[2023-05-02 13:40] VITALS: BP 136/81; PULSE 72; BMI 37.9
== END 2023-05-02 13:53 | disposition home or self-care (01) ==
PROVIDERS: PCP Nurse Practitioner Primary Care; Referring Provider Nurse Practitioner Primary Care; Visit Provider Surgery
DX: K80.20 Calculus of gallbladder without cholecystitis without obstruction (principal); K80.50 Calculus of bile duct without cholangitis or cholecystitis without obstruction
CPT/HCPCS: 99205

== ENCOUNTER → 2023-05-02 13:34 | Outpatient (BNVA) | payer BC, SELFPAY | PROVIDERS: PCP Nurse Practitioner Primary Care; Referring Provider Nurse Practitioner Primary Care; Visit Provider Surgery ==

== ENCOUNTER 2023-05-26 08:53 | Day surgery (SDC) | payer BC, SELFPAY ==
[2023-05-24 08:57] VITALS: BMI 37.9
--- NOTE | 2023-05-24 13:04 | P.CONAN_ITS ---
Documented by User: Dottie Marie NP 05/24/23 13:05 HPI - Anesthesia Eval Consult details Narrative: 32yo M for Cholecystectomy Laparoscopic PMFSH Active Problems Active Problems: All Active Problems (Updated 04/14/23 @ 09:09 by SHARON Singer) Recurrent biliary colic (Acute) Cholelithiases (Acute) Neck discomfort (Acute) Thinning hair (Acute) Pain, gastric (Acute) Encounter for routine adult physical exam with abnormal findings (Acute) Lesion of penis (Acute) Right elbow pain (Acute) Abscess of back (Acute) Acute adjustment disorder (Acute) Laboratory examination ordered as part of a routine general medical examination (Acute) Screening for STDs (sexually transmitted diseases) (Acute) Past Medical History Medical History Encounter for routine adult physical exam with abnormal findings Pain, gastric Family History Family History Father Multiple myeloma Diabetes type 2, controlled Social History Social History Housing: House Alcohol intake: current Alcohol intake frequency: holidays/special occasions only Patient Tobacco Use Status: Never used Tobacco e-Cigarette/Vaping Use: Never Used Use of substances other than those prescribed or required for medical reasons: No Are you DNR?: No Advance Directives: No Advance Directives Information Provided: Yes Current occupational status: employed Cognitive needs: No Hearing needs: No Vision needs: No Meds Allergies Allergy/AdvReac Type Severity Reaction Status Date / Time No Known Allergies Allergy Verified 05/02/23 13:39 Exam Height,Weight and Vital Signs: Height 5 ft 8 in Weight 112.945 kg Pertinent Lab Results Pertinent Lab Results: Laboratory Tests 02/03/23 10:03 WBC 6.1 Hgb 14.8 Hct 45.5 Plt Count 243 Sodium 141 Potassium 4.0 Chloride 106 Carbon Dioxide 29 BUN 10 Creatinine 0.77 Assessment and Plan Assessment Anesthesia Assessment: Chart Reviewed Documented by User: Juaquin Herbert MD 05/26/23 11:08 [facility], [facility] Past Medical History Medical History Encounter for routine adult physical exam with abnormal findings Pain, gastric Family History Family History Father Multiple myeloma Diabetes type 2, controlled Family history of problems with anesthesia: No Surgical History History of Problems with Anesthesia: No Social History Social History Housing: House Alcohol intake: current Alcohol intake frequency: holidays/special occasions only Patient Tobacco Use Status: Never used Tobacco e-Cigarette/Vaping Use: Never Used Use of substances other than those prescribed or required for medical reasons: No Are you DNR?: No Advance Directives: No Advance Directives Information Provided: Yes Current occupational status: employed Cognitive needs: No Hearing needs: No Vision needs: No Meds Allergies Allergy/AdvReac Type Severity Reaction Status Date / Time No Known Allergies Allergy Verified 05/02/23 13:39 Exam Airway Mallampati Class: II TM Dist: >3cm Neck ROM: Full Assessment and Plan Assessment Anesthesia Assessment: Anesthesia Plan Discussed Final Anesthetic Review Family History of Problems with Anesthesia: No History of Problems with Anesthesia: No NPO: Yes ASA Class: II Final Preanesthetic Review: No Changes in Pt Med Stat, Meds/Allgs Chart Reviewed, Consent Obtained/Reviewed and Anes Risks/Benef Reviewed Patient Risk: Intermediate Procedure Risk: Low Anesthetic Plan Anesthetic Plan: GA Disposition: Standard PACU
--- NOTE | 2023-05-25 12:22 | MHC.SHP ---
Pre-Procedural Eval Section A - 24 Hr Update-Section A only Date of Service: 05/25/23 The patient is an INPATIENT: No Changes since office visit: No Cold of Flu in the past 2 weeks, No New Medical Problems, No Changes in Medication and No Patient answered all questions Section B - Complete if H&P > 30 days Chief Complaint: Calculus of gallbladder,Calculus of bile duct Allergies: Allergies Allergy/AdvReac Type Severity Reaction Status Date / Time No Known Allergies Allergy Verified 05/02/23 13:39 Plan I have reviewed the history and physical and performed a pertinent physical examination on my patient. No changes have occurred unless specified. Time Spent With Patient Time: Total time managing care of this patient today ____ minutes.
[2023-05-26] VITALS (9 sets, daily range): BP systolic 112–150; BP diastolic 64–84; PULSE 78–94; RESP 16–21; TEMP 36.1–37.6; O2SAT 92–98; BMI 38.7
[2023-05-26] MEDS: Lactated Ringers 1,000 ML 100 ML IVCONT (09:32)
--- NOTE | 2023-05-26 12:55 | W.PM.OPN ---
Operative Note Operative Note Date of Service: 05/26/23 Narrative: Preoperative diagnosis: [] Symptomatic gallbladder Postop diagnosis: [] The same Procedure [] laparoscopic cholecystectomy Surgeon: [] Justin Forest Patrolman: [] Uriah Type of Anesthesia: [] General Indication for surgery: [] Very corpulent abdomen. Gallbladder with dense omental adhesions to it. Multiple small gallstones in the gallbladder. Intrahepatic gallbladder. Findings: [] Patient brought to the operating room, placed on operative table in supine position, after adequate level of general anesthesia was induced, the patient's abdomen which was very corpulent was prepped draped in usual sterile fashion. Using a supraumbilical curvilinear incision, Quesada technique was used to insufflate the abdominal cavity to 15 mm of CO2. Upper midline and right subcostal ports were placed under direct laparoscopic view, and the patient placed in reverse Trendelenburg position, tilted to the left. Findings were as noted above. Gallbladder was grasped using laparoscopic graspers and retracted superiorly and laterally. Dense omental adhesions swept off the gallbladder where it is hilum was approached. Common bile duct, cystic artery and cystic duct were each identified. The latter 2 were skeletonized, traced directly into the gallbladder, and critical view obtained. Each was clipped proximally x2, distally x1, and transected gallbladder which was very intrahepatic was then cauterized from the gallbladder fossa using Bovie. Specimen was placed in an Endo-Catch bag, a retrieved through the umbilical port. Abdominal cavity was copiously irrigated, and secured hemostasis. All ports were removed under direct laparoscopic view. Wounds were closed in the following manner; umbilical wound has fascia reapproximated using interrupted 0 Vicryl sutures. Skin wounds were closed in subcuticular 4-0 Vicryl sutures followed by Steri-Strips and sterile dressings. Wounds were infiltrated 0.5% Marcaine at completion. Sponge, needle, and instrument counts reported correct. Patient tolerated the procedure well and emerged from anesthesia stable condition. EBL minimal
[2023-05-26] MEDS: fentaNYL citrate/PF 100 MCG/2 ML VIAL 50 MCG IVPUSH (13:20)
== END 2023-05-26 14:27 | disposition home or self-care (01) ==
PROVIDERS: PCP Nurse Practitioner Primary Care; Visit Provider Surgery
PROC: 0FT44ZZ Resection of Gallbladder, Percutaneous Endoscopic Approach (ICD-10-PCS; CPT 47562; principal; 2023-05-26 11:00)
DX: K80.10 Calculus of gallbladder with chronic cholecystitis without obstruction (principal); K82.8 Other specified diseases of gallbladder; Q44.1 Other congenital malformations of gallbladder
CPT/HCPCS: 47562; 88304; J0690; J1100; J1596; J1885; J2250; J2405; J2704; J2795; J3010

== ENCOUNTER → 2023-05-26 08:53 | Outpatient (BNV) | payer BC, SELFPAY | PROVIDERS: PCP Nurse Practitioner Primary Care; Visit Provider Surgery | DX: K80.20 Calculus of gallbladder without cholecystitis without obstruction (principal) | CPT/HCPCS: 47562 ==

== ENCOUNTER 2023-06-06 10:40 | Outpatient (AMB) | payer BC, SELFPAY ==
[2023-06-06 10:53] VITALS: BP 134/78; PULSE 70
--- NOTE | 2023-06-06 10:53 | A.OFFVIS_ITS ---
Intake Vital Signs 06/06/23 10:53 Weight 243 lb BP 134/78 Blood Pressure Location Rt brachial Position Sitting Pulse 70 Intake Visit Reasons: S/P lap marisabel Intake Note: Patient here s/p lap marisabel. Reports incisions healing well. Patient c/o: dizzy with rx pain meds, stopped taking 5d ago. SX: 05-26-23. Health Care Administrator Required: No Accompanied by: Self / Same As Patient Allergies No Known Allergies Allergy (Verified 06/06/23 10:54) HPI HPI Comments History of Present Illness Details Patient presents for follow-up. He is doing well he is tolerating diet. Having regular bowel habits. He is increasing his activity level. He is minimal incisional discomfort [facility] Medical History Encounter for routine adult physical exam with abnormal findings Pain, gastric Surgical History Hx laparoscopic cholecystectomy (05/26/23) Family History Father Multiple myeloma Diabetes type 2, controlled Social History Housing: House Alcohol intake: current Alcohol intake frequency: holidays/special occasions only Comment: counts correct Patient Tobacco Use Status: Never used Tobacco e-Cigarette/Vaping Use: Never Used Current occupational status: employed Cognitive needs: No Hearing needs: No Vision needs: No Physical Exam Vital Signs: Last Vital Signs Pulse 70 06/06/23 10:53 BP 134/78 06/06/23 10:53 Eyes Other: Anicteric GI Other: Abdomen is soft. All wounds clean dry and intact healing well Assessment & Plan Assessment & Plan (1) Status post laparoscopic cholecystectomy: Code(s): Z90.49 - Acquired absence of other specified parts of digestive tract Plan Patient has been given local instructions, a note to start work with light duty for the 1st 2 weeks, and will otherwise follow-up p.r.n.. All questions answered. Coding Level of Care Code Global (81888) Diagnoses Status post laparoscopic cholecystectomy Z90.49
== END 2023-06-06 11:07 | disposition home or self-care (01) ==
PROVIDERS: PCP Nurse Practitioner Primary Care; Visit Provider Surgery
DX: Z90.49 Acquired absence of other specified parts of digestive tract (principal)
CPT/HCPCS: 99024

== ENCOUNTER → 2023-06-06 10:40 | Outpatient (BNVA) | payer BC, SELFPAY | PROVIDERS: PCP Nurse Practitioner Primary Care; Visit Provider Surgery ==

== ENCOUNTER 2023-06-15 08:13 | Outpatient (REF) | payer BC, SELFPAY ==
--- NOTE | ~2023-06-15 | FL_ITS ---
EXAMINATION: XR FLUOROSCOPY UPPER GI WITH AIR CLINICAL INFORMATION: Patient complaining of episodic epigastric pain with inferior epigastric cramping, no relation to eating or food as per patient. No current pain or symptoms. History of reflux. Recently had gallbladder removed approximately 3 weeks prior. Patient also describes episodic anxiety with palpitations. COMPARISON: No prior. TECHNIQUE: Fluoroscopic air contrast upper GI examination was performed utilizing standard techniques with thin and thick barium and effervescent granules. Numerous spot images were obtained. Several fluoroscopic image hold cine sequences were also obtained. FINDINGS: Lateral cine images of the oropharynx and hypopharynx demonstrate normal swallow mechanism with normal epiglottic inversion and soft palate elevation. No tracheal penetration, glottic or subglottic aspiration identified. No nasopharyngeal reflux present. Hypopharyngeal structures appear normal without evidence of mass or diverticulum. There was no significant cricopharyngeal achalasia. Dual and single contrast images of the esophagus demonstrate normal caliber, contour, and mucosal pattern. No evidence of stricture, mass, or ulcerations identified. Esophageal peristalsis was normal. No evidence of hiatus hernia identified. Normal-appearing GE junction. There was significant gastroesophageal reflux identified on multiple occasions throughout the exam to the level of the thoracic inlet. Dual contrast and single contrast images of the stomach demonstrated normal contour. Mild prominence of the areae gastricae could indicate mild gastritis. Rugal folds appear mildly thickened. No evidence of mass, ulceration, or other abnormality. Contrast freely passed into the gastric antrum and duodenal bulb without delay. Single and air-contrast images of the duodenal bulb demonstrate no abnormality. The duodenal sweep has a normal appearance, course, and mucosal fold appearance. No malrotation. The imaged proximal jejunum has a normal fold pattern and caliber. Incidentally noted was unusually fast small bowel transit, which reached the terminal ileum in approximately 5 minutes. This could indicate IBS or malabsorption syndrome. The small bowel itself has a normal appearance. FLUOROSCOPY TIME: 3 minutes 27 seconds Number of Spot Images: 14 Number of cines obtained: 12 DOSE AREA PRODUCT: [id number] uGy-m2 (microgray-meter squared) FL/FL upper GI w air IMPRESSION: 1. Significant gastroesophageal reflux to the level of the thoracic inlet. Normal esophagus without mucosal abnormality. Normal esophageal peristalsis. 2. Mild prominence of the gastric rugal folds and mucosal markings, likely indicating mild gastritis. Correlating with endoscopy may be of benefit. 3. No evidence of hiatus hernia. 4. Unusually fast small bowel transit time, with contrast reaching the terminal ileum in approximately 5 minutes. This could indicate irritable bowel syndrome or malabsorption syndrome. The patient denies cathartics. The small bowel itself has a normal mucosal pattern. No significant dilution of the barium. Again, EGD may be of benefit for further evaluation.
== END 2023-06-15 08:14 | disposition home or self-care (01) ==
LOC: HO.XRAY 08:13
PROVIDERS: PCP Nurse Practitioner Primary Care; Visit Provider Nurse Practitioner Primary Care
DX: R10.9 Unspecified abdominal pain (principal)
CPT/HCPCS: 74246

== ENCOUNTER → 2023-06-15 08:15 | Outpatient (BNV) | payer BC, SELFPAY | PROVIDERS: PCP Nurse Practitioner Primary Care; Visit Provider Radiology Diagnostic Radiology | DX: R10.13 Epigastric pain (principal) | CPT/HCPCS: 74246 ==

== ENCOUNTER 2023-08-16 08:02 | Outpatient (REF) | payer BC, SELFPAY | END 2023-08-16 08:03 | disposition home or self-care (01) | LOC: HO.XRAY 08:02 | PROVIDERS: PCP Nurse Practitioner Primary Care; Visit Provider Nurse Practitioner Primary Care | DX: Z13.89 Encounter for screening for other disorder (principal) ==

== ENCOUNTER 2023-08-20 12:47 | Emergency (ER) | payer BC, SELFPAY ==
[2023-08-20 12:51] VITALS: BP 131/84; PULSE 78; RESP 18; TEMP 36.6; O2SAT 98; BMI 39.2
--- NOTE | 2023-08-20 12:53 | ED.GENADULT ---
HPI - General Adult General Chief complaint: Dizziness Stated complaint: light headed Time Seen by Provider: 08/20/23 13:45 Source: patient and other (Girlfriend, Kady) Mode of arrival: ambulatory Limitations: no limitations History of Present Illness ED Provider: Dr. Can Mcclellan HPI narrative: 32-year-old male who presents emergency department for evaluation of neck pain , dizziness and vertigo times 2-3 weeks. Patient states that he does hyper history of vertigo. He states that 2-3 weeks prior he had an episode of intermittent vertigo which she described as room spinning, lasting 5-10 minutes. He states that the symptoms resolved after several days. He states that since that time he has had intermittent episodes of lightheadedness and dizziness when he stands up. Patient also states he has having a stiffness in his neck. States he usually cracked his neck he has not been able to crack his neck recently. He denied fever, chills, sore throat, cough, chest pain, shortness of breath, nausea, vomiting or diarrhea. He states that he gets occasional headaches. Related Data Previous Rx's ?Medication ?Instructions ?Recorded simethicone 125 mg capsule (Gas 125 mg PO BID-QID PRN abdominal 02/03/23 Relief (simethicone)) distention #30 caps albuterol sulfate 90 mcg/actuation 1 inh inhalation QID PRN shortness 04/14/23 aerosol inhaler of breath or wheezing #8.5 grams diclofenac sodium 1 % topical gel 2 g topical QID #100 grams 04/14/23 dicyclomine 20 mg tablet 20 mg PO BID #60 tabs 04/14/23 pantoprazole 20 mg tablet,delayed 20 mg PO DAILY #30 tabs 04/14/23 release hydrocodone 5 mg-acetaminophen 325 1 tab PO Q4-6H PRN pain #30 tabs 05/26/23 mg tablet meclizine 25 mg tablet (Dramamine 25 mg PO TID PRN dizziness #20 tabs 08/20/23 Less Drowsy) Allergies Allergy/AdvReac Type Severity Reaction Status Date / Time No Known Allergies Allergy Verified 08/20/23 12:53 Review of Systems Review of Systems: Yes all other systems are reviewed and are negative [facility] Past Medical History [facility] Narrative: Social history: 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 He denies tobacco and alcohol use. He denies drug use. Medical History Encounter for routine adult physical exam with abnormal findings Pain, gastric Surgical History Hx laparoscopic cholecystectomy (05/26/23) Family History Family History Father Multiple myeloma Diabetes type 2, controlled Social History Social History Housing: House Alcohol intake: former Comment: counts correct Patient Tobacco Use Status: Never used Tobacco Smoked in Last 30 Days: No e-Cigarette/Vaping Use: Never Used Use of substances other than those prescribed or required for medical reasons: No Advance Directives: No Advance Directives Information Provided: Yes Current occupational status: employed Cognitive needs: No Hearing needs: No Vision needs: No Physical Exam ED Vital Signs: Vital Signs - 24 hr 08/20/23 12:51 08/20/23 13:16 Temperature 98 F Pulse Rate 78 78 Respiratory Rate 18 18 Blood Pressure 131/84 125/79 Pulse Oximetry 98 98 Oxygen Delivery Method Room Air BMI result Body Mass Index 39.2 Vital signs were normal Exam: General: Awake, alert in no distress Head: Normocephalic, atraumatic EENT: PERRL, Lids normal, sclera normal, conjunctiva normal, nose normal , ears normal, throat without erythema or exudates Neck: Supple, no adenopathy Lung: breath sounds symmetric, no wheezing, rales or rhonchi Chest: symmetric movement, nontender Heart: regular rate and rhythm, normal S1, S2 no murmurs or rubs Abdomen: soft, non-tender, nondistended, normal bowel sounds Back: no vertebral tenderness, no CVAT Extremities: no deformities, moves all extremities symmetrically Neuro: General: Awake, alert, oriented, normal speech Cranial nerves: Cranial nerves are intact Strength: moves all extremities symmetrically Cerebellar: Normal ewjnlo-cw-gjzv-to-finger, normal rapid finger movement, negative Romberg, able to stand and walk without difficulty with normal gait Psych: Pleasant, cooperative Course Course Course Narrative: This is a Rapid Medical Examination (RME) performed by Werner Freitas PA-C in triage. Full HPI, ROS, assessment and treatment plan per primary provider in the Main ED. 32 yo male here for eval of hx of reccurent vertigo here for eval of dizziness and right sided neck stiffness x3 weeks. no injury trauma. no syncope. no vision changes, fever, chills, chest pain, palpitations. exam nonfocal. cerebellum intact. perrla. No midline spinous tenderness or step off deformity. + right paraspinal muscle tenderness. Plan: basic labs, viral serology ordered +/- imaging per primary provider Medical Decision Making Medical Decision Making [facility] Narrative: 32-year-old male who presents emergency department for evaluation of vertigo like symptoms with episodic vertigo 2-3 weeks prior which resolved but now has occasional dizziness with standing and neck stiffness. Vital signs were normal. Physical examination was unremarkable Differential diagnosis: ?Includes but is not limited to benign positional vertigo, cerebellar stroke, musculoskeletal pain, cervical disc disease, carotid dissection Following evaluation was ordered: CBC, CMP, COVID-19, influenza, RSV Course: 14:20 My interpretation patient's laboratory evaluation is as follows: CBC was normal. CMP was normal. The patient's dizziness is most likely secondary to benign positional vertigo and I did discuss this with him. The patient's neck stiffness is most likely secondary to musculoskeletal pain and I did discuss this with him as well. The patient was given prescription for meclizine 25 mg 3 times a day as needed for dizziness. He was also advised to take Tylenol ibuprofen for his neck pain. He was given printed and verbal instructions discharged home. Admission/Observation Consideration of admission/observation: Escalation of care including admission/observation considered Lab Data [facility] Lab Attestation statement: I reviewed the patient's lab results. 08/20/23 13:15 08/20/23 13:15 Labs: Lab Results 08/20/23 Range/Units 13:15 WBC 9.7 (4.8-10.8) X10*3/uL RBC 5.24 (4.60-5.80) X10*6/uL Hgb 15.4 (14.0-18.0) g/dl Hct 44.8 (42.0-52.0) % MCV 85.5 (80.0-98.0) fL MCH 29.4 (27.0-33.0) pg MCHC 34.4 (31.0-36.0) g/dl RDW 13.4 (11.0-16.0) % Plt Count 285 (160-400) X10*3/uL MPV 10.6 (9.4-12.4) fL Immature Gran % (Auto) 0.4 (0.0-0.4) % Neut % (Auto) 68.8 (45-73) % Lymph % (Auto) 23.8 (20-40) % Esmeralda % (Auto) 6.0 (2-11) % Eos % (Auto) 0.7 (0-4) % Baso % (Auto) 0.3 (0-2) % Lymph # (Auto) 2.3 (1.2-4.9) X10*3/uL Esmeralda # (Auto) 0.6 (0.1-1.2) X10*3/uL Eos # (Auto) 0.1 (0.0-0.4) X10*3/uL Baso # (Auto) 0.0 (0.0-0.2) X10*3/uL Abs Immat Gran (auto) 0.04 H (0.00-0.03) X10*3/uL Absolute Neuts (auto) 6.7 (2.0-8.3) x10*3/uL Absolute Nucleated RBC 0.000 (0.0-0.012) X10*3/uL Nucleated RBC % (auto) 0.0 (0.0-0.2) /100WBC PT 13.7 H (11.1-13.3) SEC INR 1.1 (0.9-1.1) Sodium 145 (135-145) mmol/L Potassium 3.8 (3.3-5.1) mmol/L Chloride 107 (96-108) mmol/L Carbon Dioxide 29 (22-29) mmol/L Anion Gap 13 (12-20) BUN 13 (9-16) mg/dL Creatinine 0.78 (0.5-1.4) mg/dL Estim Creat Clear Calc 165.0 Estimated GFR > 60 Random Glucose 87 (60-115) mg/dL Calcium 9.6 (8.4-10.2) mg/dL Magnesium 2.2 (1.6-2.6) mg/dL Total Bilirubin 0.6 (0.0-1.0) mg/dL AST 22 (5-37) U/L ALT 31 (0-40) U/L Alkaline Phosphatase 86 (39-117) U/L Total Protein 8.1 H (6.5-8.0) g/dL Albumin 4.4 (3.5-5.0) g/dL Independent Historian Clinical information obtained from an independent historian. History obtained from or confirmed by: Other (Girlfriend) Prescription Management I considered prescription management with: Other (Vertigo medications-meclizine) Discharge Plan Discharge Clinical Impression: Dizziness, Neck muscle strain Patient Disposition: Home, Self-Care Instructions: Cervical Strain (ED) Additional Instructions: Your blood work was normal Your physical exam including your neurologic and cerebellar exams were normal. The dizziness that you had 3 weeks ago is consistent with vertigo caused by change in your balance mechanism in your inner ear. We often do not know what triggers this but sometimes it has related to a viral infection at improves without treatment. Take meclizine 25 mg pills, 1 pill 3 times a day for the next 3 days for dizziness then as needed for dizziness. ?This medication will make you sleepy. ?Do not drive or work while taking this medication. Take ibuprofen 200 mg pills, 2 pills every 6 hours as needed for neck pain. Take Tylenol (acetaminophen) 500 mg pills, 2 pills every 6 hours as needed for neck pain Follow-up with your doctor in 2 days. Please return to the emergency department if your symptoms get worse or if you develop any symptoms that are concerning to you. Prescriptions: New meclizine [Dramamine Less Drowsy] 25 mg tablet 25 mg PO TID PRN (Reason: dizziness) Qty: 20 0RF No Action hydrocodone-acetaminophen 5-325 mg tablet 1 tab PO Q4-6H PRN (Reason: pain) Qty: 30 0RF Rx Instructions: Partial Fill upon patient request. albuterol sulfate 90 mcg/actuation HFA aerosol inhaler 1 inh inhalation QID PRN (Reason: shortness of breath or wheezing) Qty: 8.5 0RF diclofenac sodium 1 % gel 2 g topical QID Qty: 100 0RF Rx Instructions: apply to single elbow, wrist or hand; for hand includes palm/fingers/back of hand pantoprazole 20 mg tablet,delayed release (DR/EC) 20 mg PO DAILY Qty: 30 0RF dicyclomine 20 mg tablet 20 mg PO BID Qty: 60 0RF simethicone [Gas Relief (simethicone)] 125 mg capsule 125 mg PO BID-QID PRN (Reason: abdominal distention) Qty: 30 0RF Print Language: [place]
[2023-08-20 13:16] VITALS: BP 125/79; PULSE 78; RESP 18; O2SAT 98
[2023-08-20 13:20] LABS: MANUAL DIFF FLAG NO
[2023-08-20 13:21] LABS: Basophils Percent Auto 0.3 % (0-2); Eosinophils Absolute Auto 0.1 X10*3/uL (0.0-0.4); Eosinophils Percent Auto 0.7 % (0-4); Hematocrit 44.8 % (42.0-52.0); Hemoglobin 15.4 g/dl (14.0-18.0); Imm Gran Abs Auto 0.04 X10*3/uL (0.00-0.03); Imm Gran Pct Auto 0.4 % (0.0-0.4); Lymphocytes Absolute Auto 2.3 X10*3/uL (1.2-4.9); Lymphocytes Percent Auto 23.8 % (20-40); Mean Corpuscular HGB Conc 34.4 g/dl (31.0-36.0); Mean Corpuscular Hemoglobin 29.4 pg (27.0-33.0); Mean Corpuscular Volume 85.5 fL (80.0-98.0); Mean Platelet Volume 10.6 fL (9.4-12.4); Monocytes Absolute Auto 0.6 X10*3/uL (0.1-1.2); Neutrophils Absolute Auto 6.7 x10*3/uL (2.0-8.3); Neutrophils Percent Auto 68.8 % (45-73); Platelet Count 285 X10*3/uL (160-400); Red Blood Count 5.24 X10*6/uL (4.60-5.80); Red Cell Distribution Width 13.4 % (11.0-16.0); White Blood Count 9.7 X10*3/uL (4.8-10.8)
[2023-08-20 13:26] LABS: INTERNATIONAL NORM RATIO 1.1 (0.9-1.1); Prothrombin Time 13.7 SEC (11.1-13.3)
[2023-08-20 13:41] LABS: Alanine Aminotransferase 31 U/L (0-40); Albumin Level 4.4 g/dL (3.5-5.0); Alkaline Phosphatase 86 U/L (39-117); Anion Gap 13 (12-20); Aspartate Amino Transferase 22 U/L (5-37); Bilirubin Total 0.6 mg/dL (0.0-1.0); Blood Urea Nitrogen 13 mg/dL (9-16); Calcium 9.6 mg/dL (8.4-10.2); Carbon Dioxide 29 mmol/L (22-29); Chloride 107 mmol/L (96-108); Estimated Glomerular Filt Rate > 60; Glucose Random 87 mg/dL (60-115); Magnesium 2.2 mg/dL (1.6-2.6); Potassium 3.8 mmol/L (3.3-5.1); Sodium 145 mmol/L (135-145); Total Protein 8.1 g/dL (6.5-8.0)
[2023-08-20 14:19] LABS: Influenza A PCR NEGATIVE (Negative); Influenza B PCR NEGATIVE (Negative); Resp Syncy Virus RNA Qual PCR NEGATIVE (Negative); SARS COV2 PCR INHOUSE NEGATIVE (Negative)
[2023-08-20 14:24] VITALS: BP 125/79; PULSE 78; RESP 18; TEMP 36.6; O2SAT 98
== END 2023-08-20 14:25 | disposition home or self-care (01) ==
PROVIDERS: Physician Assistant Medical; Emergency Provider Emergency Medicine Emergency Medical Services; PCP Nurse Practitioner Primary Care
DX: R42 Dizziness and giddiness (principal); S16.1XXA Strain of muscle, fascia and tendon at neck level, initial encounter; X58.XXXA Exposure to other specified factors, initial encounter; Y93.9 Activity, unspecified; Y92.9 Unspecified place or not applicable; Y99.9 Unspecified external cause status; Z11.52 Encounter for screening for COVID-19
CPT/HCPCS: 0241U; 36415; 80053; 83735; 85025; 85610; 99283; 99284

== ENCOUNTER 2023-09-06 14:30 | Outpatient (AMB) | payer BC, SELFPAY ==
[2023-09-06 14:34] VITALS: BP 140/74; PULSE 85; BMI 40.9
--- NOTE | 2023-09-06 14:34 | MHC.OFFVIS ---
Vital Signs 09/06/23 14:34 Height 5 ft 7 in Weight 261 lb 0.437 oz BMI 40.9 BP 140/74 H Blood Pressure Location Lt brachial Position Sitting Pulse 85 Intake Visit Reasons: Irritable bowel syndrome without diarrhea Intake Note: New patient in office today for IBS. CC: Patient states that he was having ulcers last year around December and he was seen at the ER here at [facility]. Patient states that last year he had constipation and diarrhea that lasted for about 2 months but is now resolved. Patient underwent cholecystectomy on May/2023 and after that he states he has been feeling better from GI symptoms. 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 He is referred by Domenic Lambert of [facility] primary care. PMX Adjustment disorder History of abscess of the back Thinning hair * SURGICAL HISTORY Cholecystectomy * ALLERGIES: NKDA * Brainlike LABS: Laboratory Tests 08/20/23 13:15 WBC 9.7 Hgb 15.4 Hct 44.8 Plt Count 285 Total Bilirubin 0.6 AST 22 ALT 31 Alkaline Phosphatase 86 UGI 06/15/23 FINDINGS: Lateral cine images of the oropharynx and hypopharynx demonstrate normal swallow mechanism with normal epiglottic inversion and soft palate elevation. No tracheal penetration, glottic or subglottic aspiration identified. No nasopharyngeal reflux present. Hypopharyngeal structures appear normal without evidence of mass or diverticulum. There was no significant cricopharyngeal achalasia. Dual and single contrast images of the esophagus demonstrate normal caliber, contour, and mucosal pattern. No evidence of stricture, mass, or ulcerations identified. Esophageal peristalsis was normal. No evidence of hiatus hernia identified. Normal-appearing GE junction. There was significant gastroesophageal reflux identified on multiple occasions throughout the exam to the level of the thoracic inlet. Dual contrast and single contrast images of the stomach demonstrated normal contour. Mild prominence of the areae gastricae could indicate mild gastritis. Rugal folds appear mildly thickened. No evidence of mass, ulceration, or other abnormality. Contrast freely passed into the gastric antrum and duodenal bulb without delay. Single and air-contrast images of the duodenal bulb demonstrate no abnormality. The duodenal sweep has a normal appearance, course, and mucosal fold appearance. No malrotation. The imaged proximal jejunum has a normal fold pattern and caliber. Incidentally noted was unusually fast small bowel transit, which reached the terminal ileum in approximately 5 minutes. This could indicate IBS or malabsorption syndrome. The small bowel itself has a normal appearance. FLUOROSCOPY TIME: 3 minutes 27 seconds Number of Spot Images: 14 Number of cines obtained: 12 DOSE AREA PRODUCT: 5046 uGy-m2 (microgray-meter squared) FL/FL upper GI w air IMPRESSION: 1. Significant gastroesophageal reflux to the level of the thoracic inlet. Normal esophagus without mucosal abnormality. Normal esophageal peristalsis. 2. Mild prominence of the gastric rugal folds and mucosal markings, likely indicating mild gastritis. Correlating with endoscopy may be of benefit. 3. No evidence of hiatus hernia. 4. Unusually fast small bowel transit time, with contrast reaching the terminal ileum in approximately 5 minutes. This could indicate irritable bowel syndrome or malabsorption syndrome. The patient denies cathartics. The small bowel itself has a normal mucosal pattern. No significant dilution of the barium. Again, EGD may be of benefit for further evaluation. US ABD 04/14/23 FINDINGS: PANCREAS: Limited visualization. ABDOMINAL AORTA: The proximal, mid, and distal segments are normal in caliber. INFERIOR VENA CAVA: Visualized portions are normal. LIVER: The liver contour is normal. There is diffuse increased liver parenchymal echogenicity, consistent with hepatic steatosis. No focal hepatic lesion. There is no intrahepatic biliary duct dilatation seen. GALLBLADDER: The gallbladder is physiologically distended with layering stones. No wall thickening or pericholecystic fluid. COMMON BILE DUCT: Normal in caliber measuring 0.3 cm in diameter. RIGHT KIDNEY: No hydronephrosis. No renal calculi or focal parenchymal lesions. The kidney measures 10.7 cm in maximum dimension. LEFT KIDNEY: No hydronephrosis. No renal calculi or focal parenchymal lesions. The kidney measures 11.2 cm in maximum dimension. SPLEEN: The spleen measures 9.9 cm in maximum dimension. FREE FLUID: None. US/US abdomen complete IMPRESSION: Hepatic steatosis. Cholelithiasis without sonographic evidence of acute cholecystitis. TODAY'S VISIT He used to eat a lot of spicy and greasy foods. He started having pain in the stomach and he presented to the ER and initially he was told it was a stomach ulcer. It was at [facility] ER. He has some GERD with tomato sauce, intermittent gastric pain. He is concerned that he needs an EGD because of the UGI study suggesting gastritis. There are no prior problems with anesthesia or sedation. He denies any cardiac or respiratory problems. There are no infectious disease problems. ROV after procedure. [facility] Medical History (Updated 09/06/23 @ 15:05 by MARIMAR Liu) Screening for STDs (sexually transmitted diseases) Laboratory examination ordered as part of a routine general medical examination Encounter for routine adult physical exam with abnormal findings Pain, gastric Surgical History (Updated 09/06/23 @ 14:54 by MARIMAR Liu) Recurrent biliary colic Cholelithiases Hx laparoscopic cholecystectomy (05/26/23) Family History Father Multiple myeloma Diabetes type 2, controlled Paternal Uncle Prostate cancer Paternal Grandfather Colon cancer Paternal Uncle Prostate cancer Social History Housing: House Alcohol intake: former Comment: counts correct Patient Tobacco Use Status: Never used Tobacco e-Cigarette/Vaping Use: Never Used Current occupational status: employed Cognitive needs: No Hearing needs: No Vision needs: No Review of Systems Const Denies fatigue, Denies fever(s), Denies night sweats, Denies poor appetite and Denies weight loss ENT Reports Normal hearing present, Denies dental pain, Denies dysphagia, Denies hearing loss, Denies mouth pain, Denies odynophagia, Denies throat swelling, Denies tongue swelling and Reports other (Dentition adequate) Card Reports no additional complaints Resp Reports no additional complaints GI Details: Reports abdominal pain, Denies melena, Denies bloating, Denies hematochezia, Denies constipation, Denies GI cramping, Denies dysphagia, Denies excessive flatus, Denies early satiety, Reports heartburn, Denies diarrhea, Denies nausea, Denies odynophagia, Denies vomiting and Denies hematemesis Skin/Breast Denies pruritus, Denies lesions, Denies rash and Denies jaundice Neuro Reports Normal hearing present and Denies Abnormal speech present Endo Denies fatigue Aller/Immun Denies throat swelling and Denies tongue swelling Physical Exam Vital Signs: Last Vital Signs Pulse 85 09/06/23 14:34 BP 140/74 H 09/06/23 14:34 BMI result Body Mass Index 40.9 Const General: cooperative, no acute distress, well developed and well groomed Nutritional Appearance: well nourished and obese centrally obese Orientation/consciousness: oriented to person, oriented to place and oriented to time Limitations: No language barrier HEENT Head: Yes normocephalic and Yes atraumatic Eyes General: appearance normal, both eyes and all related structures Pupils: Equal, round and reactive pupils present Neck Neck: Yes normal visual inspection and Yes no lymphadenopathy Thyroid: Thyroid normal Resp Effort & Inspection: normal respiratory effort and able to speak in complete sentences Auscultation: clear to auscultation bilaterally Cardio Rate: regular rate Rhythm: regular rhythm Heart sounds: Normal, physiologic split S2 sound present Peripheral pulses: radial pulses present and posterior tibial pulses present GI Inspection: No distended, No Abdominal panniculus present and Yes obesity Palpation (GI): Soft to palpation, nontender, no guarding, not rigid and No hepatosplenomegaly present Percussion: Yes normal to percussion Auscultation: normal bowel sounds Rectal Exam - Male: Yes deferred Abdomen image: 1. well healing surgical scars 2. 3. Skin General skin exam: no rashes or lesions noted, turgor normal, skin not dry, no jaundice, No spider nevi and no striae Rashes: no rashes Nails: normal Neuro General: oriented to person, oriented to place and oriented to time Cranial nerves: Yes Equal, round and reactive pupils present and Yes Normal hearing present Speech: No Abnormal speech present Extrem General: Yes normal to inspection, No clubbing, No cyanosis and No edema Psych Appearance: grossly normal and well kempt Mental Status: mental status grossly normal Speech and movement: Normal speech and movement present Affect: normal affect Attitude: cooperative Thought process: Normal thought process present and not confabulating Thought content: Normal thought content present Insight: Limited insight present (Psych) Judgement: Limited judgement present (Psych) Results Reviewed Results Reviewed: Laboratory Tests 08/20/23 13:15 WBC 9.7 Hgb 15.4 Hct 44.8 Plt Count 285 Total Bilirubin 0.6 AST 22 ALT 31 Alkaline Phosphatase 86 UGI 06/15/23 FINDINGS: Lateral cine images of the oropharynx and hypopharynx demonstrate normal swallow mechanism with normal epiglottic inversion and soft palate elevation. No tracheal penetration, glottic or subglottic aspiration identified. No nasopharyngeal reflux present. Hypopharyngeal structures appear normal without evidence of mass or diverticulum. There was no significant cricopharyngeal achalasia. Dual and single contrast images of the esophagus demonstrate normal caliber, contour, and mucosal pattern. No evidence of stricture, mass, or ulcerations identified. Esophageal peristalsis was normal. No evidence of hiatus hernia identified. Normal-appearing GE junction. There was significant gastroesophageal reflux identified on multiple occasions throughout the exam to the level of the thoracic inlet. Dual contrast and single contrast images of the stomach demonstrated normal contour. Mild prominence of the areae gastricae could indicate mild gastritis. Rugal folds appear mildly thickened. No evidence of mass, ulceration, or other abnormality. Contrast freely passed into the gastric antrum and duodenal bulb without delay. Single and air-contrast images of the duodenal bulb demonstrate no abnormality. The duodenal sweep has a normal appearance, course, and mucosal fold appearance. No malrotation. The imaged proximal jejunum has a normal fold pattern and caliber. Incidentally noted was unusually fast small bowel transit, which reached the terminal ileum in approximately 5 minutes. This could indicate IBS or malabsorption syndrome. The small bowel itself has a normal appearance. FLUOROSCOPY TIME: 3 minutes 27 seconds Number of Spot Images: 14 Number of cines obtained: 12 DOSE AREA PRODUCT: 5046 uGy-m2 (microgray-meter squared) FL/FL upper GI w air IMPRESSION: 1. Significant gastroesophageal reflux to the level of the thoracic inlet. Normal esophagus without mucosal abnormality. Normal esophageal peristalsis. 2. Mild prominence of the gastric rugal folds and mucosal markings, likely indicating mild gastritis. Correlating with endoscopy may be of benefit. 3. No evidence of hiatus hernia. 4. Unusually fast small bowel transit time, with contrast reaching the terminal ileum in approximately 5 minutes. This could indicate irritable bowel syndrome or malabsorption syndrome. The patient denies cathartics. The small bowel itself has a normal mucosal pattern. No significant dilution of the barium. Again, EGD may be of benefit for further evaluation. US ABD 04/14/23 FINDINGS: PANCREAS: Limited visualization. ABDOMINAL AORTA: The proximal, mid, and distal segments are normal in caliber. INFERIOR VENA CAVA: Visualized portions are normal. LIVER: The liver contour is normal. There is diffuse increased liver parenchymal echogenicity, consistent with hepatic steatosis. No focal hepatic lesion. There is no intrahepatic biliary duct dilatation seen. GALLBLADDER: The gallbladder is physiologically distended with layering stones. No wall thickening or pericholecystic fluid. COMMON BILE DUCT: Normal in caliber measuring 0.3 cm in diameter. RIGHT KIDNEY: No hydronephrosis. No renal calculi or focal parenchymal lesions. The kidney measures 10.7 cm in maximum dimension. LEFT KIDNEY: No hydronephrosis. No renal calculi or focal parenchymal lesions. The kidney measures 11.2 cm in maximum dimension. SPLEEN: The spleen measures 9.9 cm in maximum dimension. FREE FLUID: None. US/US abdomen complete IMPRESSION: Hepatic steatosis. Cholelithiasis without sonographic evidence of acute cholecystitis. Assessment & Plan Assessment & Plan (1) Status post laparoscopic cholecystectomy: Code(s): Z90.49 - Acquired absence of other specified parts of digestive tract Category: Surgical (2) Pain, gastric: Code(s): R10.9 - Unspecified abdominal pain Category: Medical Plan He used to eat a lot of spicy and greasy foods. He started having pain in the stomach and he presented to the ER and initially he was told it was a stomach ulcer. It was at [facility] ER. He has some GERD with tomato sauce, intermittent gastric pain. He is concerned that he needs an EGD because of the UGI study suggesting gastritis. There are no prior problems with anesthesia or sedation. He denies any cardiac or respiratory problems. There are no infectious disease problems. ROV after procedure. Orders: Orders EGD with Bright - GI Use Only Today R10.9 - Unspecified abdominal pain Coding Level of Care Code New Pt Level 3 (28114) Diagnoses Status post laparoscopic cholecystectomy Z90.49 Pain, gastric R10.9
== END 2023-09-06 15:10 | disposition home or self-care (01) ==
PROVIDERS: PCP Nurse Practitioner Primary Care; Visit Provider Nurse Practitioner
DX: Z90.49 Acquired absence of other specified parts of digestive tract (principal); R10.9 Unspecified abdominal pain
CPT/HCPCS: 99203

== ENCOUNTER → 2023-09-06 14:30 | Outpatient (BNVA) | payer BC, SELFPAY | PROVIDERS: PCP Nurse Practitioner Primary Care; Visit Provider Nurse Practitioner ==

== ENCOUNTER 2023-10-09 06:35 | Day surgery (SDC) | payer BC, SELFPAY ==
--- NOTE | 2023-10-06 09:24 | HO.ANESPROP2 ---
Documented by User: Dottie Marie NP 10/06/23 09:26 HPI - Anesthesia Eval Consult details Narrative: 33yo M for Upper Endoscopy PMFSH Active Problems Active Problems: All Active Problems Status post laparoscopic cholecystectomy (Acute) Neck discomfort (Acute) Thinning hair (Acute) Pain, gastric (Acute) Lesion of penis (Acute) Right elbow pain (Acute) Abscess of back (Acute) Acute adjustment disorder (Acute) Past Medical History Medical History Screening for STDs (sexually transmitted diseases) Laboratory examination ordered as part of a routine general medical examination Encounter for routine adult physical exam with abnormal findings Pain, gastric Family History Family History Father Multiple myeloma Diabetes type 2, controlled Paternal Uncle Prostate cancer Paternal Grandfather Colon cancer Paternal Uncle Prostate cancer Family history of problems with anesthesia: No Surgical History Surgical History Recurrent biliary colic Cholelithiases Hx laparoscopic cholecystectomy (05/26/23) History of Problems with Anesthesia: No Social History Social History Housing: House Alcohol intake: former Comment: counts correct Patient Tobacco Use Status: Never used Tobacco e-Cigarette/Vaping Use: Never Used Are you DNR?: No Advance Directives: No Advance Directives Information Provided: Yes Nutrition Risks: No Nutritional Risk Current occupational status: employed Cognitive needs: No Hearing needs: No Vision needs: No Meds Allergies Allergy/AdvReac Type Severity Reaction Status Date / Time No Known Allergies Allergy Verified 09/06/23 14:42 Home Medications ?Medication ?Instructions ?Recorded ?Confirmed ?Last Taken ?Type diclofenac sodium 1 % topical gel 2 g topical QID PRN 09/06/23 Unknown History Exam Pertinent Lab Results Pertinent Lab Results: Laboratory Tests 08/20/23 13:15 WBC 9.7 Hgb 15.4 Hct 44.8 Plt Count 285 Sodium 145 Potassium 3.8 Chloride 107 Carbon Dioxide 29 BUN 13 Creatinine 0.78 Assessment and Plan Assessment Anesthesia Assessment: Chart Reviewed Final Anesthetic Review Family History of Problems with Anesthesia: No History of Problems with Anesthesia: No Documented by User: Juaquin Herbert MD 10/09/23 08:09 PMFSH Past Medical History Medical History Screening for STDs (sexually transmitted diseases) Laboratory examination ordered as part of a routine general medical examination Encounter for routine adult physical exam with abnormal findings Pain, gastric Family History Family History Father Multiple myeloma Diabetes type 2, controlled Paternal Uncle Prostate cancer Paternal Grandfather Colon cancer Paternal Uncle Prostate cancer Surgical History Surgical History Recurrent biliary colic Cholelithiases Hx laparoscopic cholecystectomy (05/26/23) Social History Social History Housing: House Alcohol intake: former Comment: counts correct Patient Tobacco Use Status: Never used Tobacco e-Cigarette/Vaping Use: Never Used Are you DNR?: No Advance Directives: No Advance Directives Information Provided: Yes Nutrition Risks: No Nutritional Risk Current occupational status: employed Cognitive needs: No Hearing needs: No Vision needs: No Meds Allergies Allergy/AdvReac Type Severity Reaction Status Date / Time No Known Allergies Allergy Verified 09/06/23 14:42 Home Medications ?Medication ?Instructions ?Recorded ?Confirmed ?Last Taken ?Type diclofenac sodium 1 % topical gel 2 g topical QID PRN 09/06/23 Unknown History Exam Airway Mallampati Class: III TM Dist: >3cm Neck ROM: Full Assessment and Plan Assessment Anesthesia Assessment: Anesthesia Plan Discussed Final Anesthetic Review NPO: Yes ASA Class: II Final Preanesthetic Review: No Changes in Pt Med Stat, Meds/Allgs Chart Reviewed, Consent Obtained/Reviewed and Anes Risks/Benef Reviewed Patient Risk: Intermediate Procedure Risk: Low Anesthetic Plan Anesthetic Plan: TIVA Disposition: Standard PACU
--- NOTE | 2023-10-09 06:13 | MHC.SHP ---
Pre-Procedural Eval Section A - 24 Hr Update-Section A only Date of Service: 10/09/23 Section B - Complete if H&P > 30 days Chief Complaint: Unspecified abdominal pain Relevant Family History (Specify if Yes): No Relevant Social History: None Present Medications: see Short Stay Collaborative assessment Medical History: Significant History (Pain, gastric) History of Previous Operations: Relevant previous surgery/procedure and date(s) (ecurrent biliary colic Cholelithiases Hx laparoscopic cholecystectomy (05/26/23)) Allergies: Allergies Allergy/AdvReac Type Severity Reaction Status Date / Time No Known Allergies Allergy Verified 09/06/23 14:42 Review of Systems Sugical H&P ROS: Negative: Constitution, Cardiovascular, Respiratory, Neurological, Psychiatric, Hem-Onc, Allergic/Immunologic, Gastrointestinal, Genitourinary, Musculoskeletal, Integumentary, Endocrine and Eyes/Ears/Nose/Throat Exam Surgical H&P Exam: Normal: HEENT, Normal: Heart, Normal: Lungs, Normal: Extremities, Normal: Abdomen, Normal: Skin and Normal: Neurological Plan Diagnosis/Plan: Unchanged I have reviewed the history and physical and performed a pertinent physical examination on my patient. No changes have occurred unless specified. Time Spent With Patient Time: Total time managing care of this patient today ____ minutes.
[2023-10-09 07:34] VITALS: BP 136/92; PULSE 77; RESP 18; TEMP 36.5; O2SAT 99; BMI 39.5
[2023-10-09] MEDS: Lactated Ringers 1,000 ML 100 ML IVCONT (07:40)
--- NOTE | 2023-10-09 08:29 | W.PM.OPN ---
Operative Note Operative Note Date of Service: 10/09/23 Narrative: Procedure Description: EGD Indication: epigastric pain Anesthesia: MAC FLEXIBLE TRANSORAL UPPER GASTROINTESTINAL ENDOSCOPY UPPER ENDOSCOPY Consent: Indications for the procedure and potential complications of bleeding, perforation, reaction to medications and missed diagnosis were discussed with the patient and informed consent was obtained. Instrument: Olympus GIF H 190 J mid size upper endoscope Monitoring: Vital signs and clinical assessment, continuous EKG monitoring, Pulse oximetry, Carbon Dioxide monitoring and blood pressure monitoring were done throughout the procedure. Procedure: The patient was placed in the left lateral decubitis position and pre-procedure medications were administered and a bite block was placed. The endoscope was inserted into the mouth and advanced under direct vision to the third part of duodenum. A careful inspection was made as the upper endoscope was withdrawn including a retroflexed examination of the proximal stomach; Findings and interventions are described below. Findings: Larynx:normal Esophagus: GE junction at 40 cm, diaphragm hiatus at 40 cm, LA grade A esophagitis with a small liner erosive streak with some surrounding erythema at the GEJ--bx taken from GEJ, distal and proximal esophagus Stomach: patchy erythema . Biopsies were obtained. Grade 3 flap valve on retroflexed examination of the cardia. The LES is patulous . Duodenum: Normal bulb and descending duodenum, Intervention: Biopsies as noted above, Impression/Findings: gastritis erosive esophagitis patulous GEJ PLAN: can use PPI, if H pylori pos then treat GERD precautions
[2023-10-09 08:37] VITALS: BP 123/73; PULSE 102; RESP 17; TEMP 36.6; O2SAT 95
[2023-10-09 08:52] VITALS: BP 132/81; PULSE 84; RESP 17; O2SAT 97
[2023-10-09 09:07] VITALS: BP 138/91; PULSE 82; RESP 16; TEMP 36.4; O2SAT 98
== END 2023-10-09 09:39 | disposition home or self-care (01) ==
PROVIDERS: PCP Nurse Practitioner Primary Care; Visit Provider Internal Medicine Gastroenterology
PROC: 0DJ08ZZ Inspection of Upper Intestinal Tract, Via Natural or Artificial Opening Endoscopic (ICD-10-PCS; CPT 43235; principal; 2023-10-09 08:30)
DX: R10.13 Epigastric pain (principal); K20.80 Other esophagitis without bleeding; K29.50 Unspecified chronic gastritis without bleeding; K22.89 Other specified disease of esophagus; K44.9 Diaphragmatic hernia without obstruction or gangrene; Z90.49 Acquired absence of other specified parts of digestive tract
CPT/HCPCS: 43239; 88305; 88313; 88342

== ENCOUNTER → 2023-10-09 06:35 | Outpatient (BNV) | payer BC, SELFPAY | PROVIDERS: PCP Nurse Practitioner Primary Care; Visit Provider Internal Medicine Gastroenterology | DX: K20.90 Esophagitis, unspecified without bleeding (principal); K29.70 Gastritis, unspecified, without bleeding; K22.89 Other specified disease of esophagus | CPT/HCPCS: 43239 ==

== ENCOUNTER → 2023-10-27 16:19 | Outpatient (AMB) | payer BC, SELFPAY ==
--- NOTE | 2023-10-27 16:34 | MHC.OFFVIS ---
Vital Signs 10/27/23 16:35 Height 5 ft 8 in Weight 266 lb BMI 40.4 Intake Visit Reasons: S/P EGD; Dr. Quesada Intake Note: Patient in office today in follow up s/p EGD. CC: Patient reports having acid reflux after eating food with red sauces. Denies having other GI concerns today. Skin Tanner Required: No Accompanied by: Self / Same As Patient Allergies No Known Allergies Allergy (Verified 11/01/23 15:15) HPI HPI S/P EGD; Dr. Quesada: Details: Assessment & Plan (1) Status post laparoscopic cholecystectomy: Code(s): Z90.49 - Acquired absence of other specified parts of digestive tract Category: Surgical (2) Pain, gastric: Code(s): R10.9 - Unspecified abdominal pain Category: Medical Plan He used to eat a lot of spicy and greasy foods. He started having pain in the stomach and he presented to the ER and initially he was told it was a stomach ulcer. It was at [facility]. He has some GERD with tomato sauce, intermittent gastric pain. He is concerned that he needs an EGD because of the UGI study suggesting gastritis. There are no prior problems with anesthesia or sedation. He denies any cardiac or respiratory problems. There are no infectious disease problems. ROV after procedure. Orders: Orders EGD with Bright - GI Use Only Today R10.9 - Unspecified abdominal pain EGD 10/09/23 Findings: Larynx:normal Esophagus: GE junction at 40 cm, diaphragm hiatus at 40 cm, LA grade A esophagitis with a small liner erosive streak with some surrounding erythema at the GEJ--bx taken from GEJ, distal and proximal esophagus Stomach: patchy erythema . Biopsies were obtained. Grade 3 flap valve on retroflexed examination of the cardia. The LES is patulous . Duodenum: Normal bulb and descending duodenum, BIOPSY Received: 10/09/23 Diagnosis A. Stomach, biopsy: Antral-type and oxyntic mucosa with mild chronic inactive inflammation; no Helicobacter organisms seen. B. GE junction, biopsy: - Cardiac-type mucosa with moderate chronic active inflammation; no intestinal metaplasia seen. - Squamous mucosa within normal limits. C. Esophagus, distal, biopsy: Squamous epithelium within normal limits; no inflammation seen. D. Esophagus, proximal, biopsy: Squamous epithelium within normal limits; no inflammation seen TODAY'S VISIT He is feeling better on his pantoprazole 40mg, he did note significant breakthrough with 2 slices of pizza. He was educated again about the role diet and weight control for GERD management. Printed SIGNS AND DISPLAYS SALESPERSON lists. He has already changed his diet to try to address this. ROV 6 mos. [facility] Medical History (Updated 11/01/23 @ 15:28 by Blossom Rose PA-C) Pain, gastric Screening for STDs (sexually transmitted diseases) Laboratory examination ordered as part of a routine general medical examination Encounter for routine adult physical exam with abnormal findings Surgical History (Updated 10/27/23 @ 16:43 by MARIMAR Liu) Status post laparoscopic cholecystectomy Recurrent biliary colic Cholelithiases Hx laparoscopic cholecystectomy (05/26/23) Family History Father Multiple myeloma Diabetes type 2, controlled Paternal Uncle Prostate cancer Paternal Grandfather Colon cancer Paternal Uncle Prostate cancer Social History Housing: House Alcohol intake: former Comment: counts correct Patient Tobacco Use Status: Never used Tobacco e-Cigarette/Vaping Use: Never Used Current occupational status: employed Cognitive needs: No Hearing needs: No Vision needs: No Review of Systems Const Denies fatigue, Denies fever(s), Denies night sweats, Denies poor appetite and Denies weight loss ENT Reports Normal hearing present, Denies dental pain, Denies dysphagia, Denies hearing loss, Denies mouth pain, Denies odynophagia, Denies throat swelling, Denies tongue swelling and Reports other (Dentition adequate) Card Reports no additional complaints Resp Reports no additional complaints GI Details: Denies abdominal pain, Denies melena, Denies bloating, Denies hematochezia, Denies constipation, Denies GI cramping, Denies dysphagia, Denies excessive flatus, Denies early satiety, Reports heartburn, Denies diarrhea, Denies nausea, Denies odynophagia, Denies vomiting and Denies hematemesis Skin/Breast Denies pruritus, Denies lesions, Denies rash and Denies jaundice Neuro Reports Normal hearing present and Denies Abnormal speech present Endo Denies fatigue Aller/Immun Denies throat swelling and Denies tongue swelling Physical Exam Vital Signs: BMI result Body Mass Index 40.4 Const General: cooperative, no acute distress, well developed and well groomed Nutritional Appearance: well nourished and obese Orientation/consciousness: oriented to person, oriented to place and oriented to time Limitations: No language barrier HEENT Head: Yes normocephalic and Yes atraumatic Eyes General: appearance normal, both eyes and all related structures Pupils: Equal, round and reactive pupils present Neck Neck: Yes normal visual inspection and Yes no lymphadenopathy Thyroid: Thyroid normal Resp Effort & Inspection: normal respiratory effort and able to speak in complete sentences Auscultation: clear to auscultation bilaterally Cardio Rate: regular rate Rhythm: regular rhythm Heart sounds: Normal, physiologic split S2 sound present Peripheral pulses: radial pulses present and posterior tibial pulses present GI Inspection: No distended, No Abdominal panniculus present and Yes obesity Palpation (GI): Soft to palpation, nontender, no guarding, not rigid and No hepatosplenomegaly present Percussion: Yes normal to percussion Auscultation: normal bowel sounds Rectal Exam - Male: Yes deferred Skin General skin exam: no rashes or lesions noted, turgor normal, skin not dry, no jaundice, No spider nevi and no striae Rashes: no rashes Nails: normal Neuro General: oriented to person, oriented to place and oriented to time Cranial nerves: Yes Equal, round and reactive pupils present and Yes Normal hearing present Speech: No Abnormal speech present Extrem General: Yes normal to inspection, No clubbing, No cyanosis and No edema Psych Appearance: grossly normal and well kempt Mental Status: mental status grossly normal Speech and movement: Normal speech and movement present Affect: normal affect Attitude: cooperative Thought process: Normal thought process present and not confabulating Thought content: Normal thought content present Insight: Limited insight present (Psych) Judgement: Limited judgement present (Psych) Assessment & Plan Assessment & Plan (1) GERD with esophagitis: Code(s): K21.00 - Gastro-esophageal reflux disease with esophagitis, without bleeding Category: Medical Plan He is feeling better on his pantoprazole 40mg, he did note significant breakthrough with 2 slices of pizza. He was educated again about the role diet and weight control for GERD management. Printed SIGNS AND DISPLAYS SALESPERSON lists. He has already changed his diet to try to address this. ROV 6 mos. Coding Level of Care Code Est Pt Level 3 (52731) Diagnoses GERD with esophagitis K21.00
[2023-10-27 16:35] VITALS: BMI 40.4
== END ==
PROVIDERS: PCP Nurse Practitioner Primary Care; Visit Provider Nurse Practitioner
DX: K21.00 Gastro-esophageal reflux disease with esophagitis, without bleeding (principal)
CPT/HCPCS: 99213

== ENCOUNTER → 2023-10-27 16:19 | Outpatient (BNVA) | payer BC, SELFPAY | PROVIDERS: PCP Nurse Practitioner Primary Care; Visit Provider Nurse Practitioner ==

== ENCOUNTER 2023-11-01 15:10 | Outpatient (AMB) | payer BC, SELFPAY ==
--- NOTE | 2023-11-01 15:13 | MHC.OFFWIV ---
Intake Vital Signs 11/01/23 15:14 Height 5 ft 8 in Weight 266 lb BMI 40.4 BP 122/78 Blood Pressure Location Rt brachial Position Sitting Pulse 76 Pulse Source Pulse Oximeter Pulse Oximetry (%) 98 Oxygen Delivery Method Room Air Intake Visit Reasons: EP- Lower back pain since Monday Intake Note: Patient here for lower back pain that started monday. 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 Patient Tobacco Use Status: Never used Tobacco Allergies No Known Allergies Allergy (Verified 11/01/23 15:15) Do you need a note to return to daycare/school/sports/work: Yes HPI HPI Comments History of Present Illness Details Patient is a 33-year-old male complaining of left-sided low back pain x3 days. 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 He states the pain is worse when he bends to his right side, and when he tries to touch his toes. It is also worse when he goes to stand up quickly. He states it is better with rest and while sitting in certain positions. He denies any sharp shooting pains down his legs, he denies any loss of control of his bladder or bowels and he also denies any saddle paresthesias. [facility] Medical History (Updated 11/01/23 @ 15:28 by Blossom Rose PA-C) Pain, gastric Screening for STDs (sexually transmitted diseases) Laboratory examination ordered as part of a routine general medical examination Encounter for routine adult physical exam with abnormal findings Surgical History (Updated 10/27/23 @ 16:43 by MARIMAR Liu) Status post laparoscopic cholecystectomy Recurrent biliary colic Cholelithiases Hx laparoscopic cholecystectomy (05/26/23) Family History Father Multiple myeloma Diabetes type 2, controlled Paternal Uncle Prostate cancer Paternal Grandfather Colon cancer Paternal Uncle Prostate cancer Social History Housing: House Alcohol intake: former Comment: counts correct Patient Tobacco Use Status: Never used Tobacco e-Cigarette/Vaping Use: Never Used Current occupational status: employed Cognitive needs: No Hearing needs: No Vision needs: No Review of Systems Const All systems reviewed & are unremarkable except as noted in HPI and below Physical Exam Vital Signs: Last Vital Signs Pulse 76 11/01/23 15:14 BP 122/78 11/01/23 15:14 Pulse Ox 98 11/01/23 15:14 Oxygen Delivery Method Room Air 11/01/23 15:14 BMI result Body Mass Index 40.4 Const General: cooperative, healthy appearing and comfortable Orientation/consciousness: patient oriented x3 HEENT Head: Yes normal to inspection and Yes normocephalic General nose exam: Normal external nose present Face and sinus: Yes normal facial exam Eyes General: appearance normal, both eyes and all related structures Resp Effort & Inspection: normal respiratory effort and able to speak in complete sentences General: Yes no CVA tenderness Back/Spine/Pelvis Back: no CVA tenderness Cervical Spine: cervical ROM normal and No Cervical spine tenderness Thoracic/Lumbar Spine: thoracic and lumbar spine normal to inspection, pain with thoraco-lumbar ROM, paraspinal muscle tenderness on the left greater than right, thoraco-lumbar ROM limited, thoraco-lumbar spasm on the left greater than right, No thoracic spinal tenderness and No lumbar spinal tenderness Neuro General: patient oriented x3 Extrem Other: Straight leg raise test negative on right; Straight leg raise test negative on left; Reflexes normal ankle and knee bilaterally; motor strength normal bilaterally Assessment & Plan Assessment & Plan (1) Low back pain: Code(s): M54.50 - Low back pain, unspecified Qualifiers: Chronicity: acute Back pain laterality: left Sciatica presence: without sciatica Qualified Code(s): M54.50 - Low back pain, unspecified Plan: Recommended patient use icy hot or Salonpas patches as well as Alave around the clock for the next 3-4 days and sent cyclobenzaprine (with warnings and how to use the medication) to his pharmacy. Advised rest and wrote him a work note for the next 3 days. Recommended he establish care with a primary care doctor because if his pain does not improve, he could need physical therapy and we do not do the referrals from this clinic. Plan see above Medications: New cyclobenzaprine 5 mg PO TID PRN 10 tabs 0RF muscle spasm Coding Level of Care Code Est Pt Level 3 (30304) Diagnoses Acute left-sided low back pain without sciatica M54.50 Chronicity: acute Back pain laterality: left Sciatica presence: without sciatica
[2023-11-01 15:14] VITALS: BP 122/78; PULSE 76; O2SAT 98; BMI 40.4
== END 2023-11-01 15:26 | disposition home or self-care (01) ==
PROVIDERS: PCP Nurse Practitioner Primary Care; Visit Provider Physician Assistant
DX: M54.50 Low back pain, unspecified (principal)
CPT/HCPCS: 99213

== ENCOUNTER 2024-02-09 13:45 | Outpatient (AMB) | payer BC, SELFPAY ==
--- NOTE | 2024-02-09 13:50 | A.OFFPC_ITS ---
Vital Signs 02/09/24 13:52 Height 5 ft 8 in Weight 268 lb BMI 40.7 BP 110/78 Blood Pressure Location Lt brachial Position Sitting Pulse 105 H Pulse Source Pulse Oximeter Pulse Oximetry (%) 96 Oxygen Delivery Method Room Air Intake Visit Reasons: ep-office visit tranfer from [facility], requesting a PE Intake Note: Pt is here today for PE establish care from [facility]. Allergies No Known Allergies Allergy (Verified 02/09/24 13:53) Medication List - Last Reconciled 02/09/24 by Lucille Mosher MD albuterol sulfate 90 mcg/actuation 2 puffs inhalation Q6H PRN pantoprazole 40 mg PO DAILY Tobacco use date assessed: 02/09/24 Dental Screening Dental Screen Date: 04/14/23 HPI ep-office visit tranfer from [facility], requesting a PE HPI Details Pt presents for PE. Pt c/o dry cough for 3 months, worse at night when lying down. He denies sputum production wheezing allergy symptoms chest pain pleurisy any new environmental exposure. [facility] Medical History (Updated 02/09/24 @ 14:48 by Lucille Mosher MD) Encounter for routine adult physical exam with abnormal findings Pain, gastric Screening for STDs (sexually transmitted diseases) Laboratory examination ordered as part of a routine general medical examination Surgical History Hx laparoscopic cholecystectomy (05/26/23) Family History (Updated 02/09/24 @ 14:30 by Lucille Mosher MD) Father Multiple myeloma Diabetes type 2, controlled Paternal Uncle Prostate cancer Paternal Grandfather Colon cancer Paternal Uncle Prostate cancer Mother Asthma Social History (Updated 02/09/24 @ 14:32 by Lucille Mosher MD) Household Members 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 1. Little interest or pleasure in doing things: several days 2. Feeling down, depressed, or hopeless: not at all 3. Trouble falling or staying asleep, or sleeping too much: not at all 4. Feeling tired or having little energy: not at all 5. Poor appetite or overeating: not at all 6. Feeling bad about yourself - or that you are a failure or have let yourself or your family down: not at all 7. Trouble concentrating on things, such as reading the newspaper or watching television: not at all 8. Moving or speaking so slowly that other people could have noticed. Or the opposite - being so fidgety or restless that you have been moving around a lot more than usual: not at all 9. Thoughts that you would be better off or of hurting yourself in some way: not at all Total score: 1 Depression Screening Interpretation: Negative Depression Screening Done: Yes 04710 - PHQ-9 Billing: Yes Source: Developed by Drs. Robert Sarah, Abigail Herzog, Misha Ca and colleagues, with an educational pete from [employer]. Thrive Questionnaire Date Thrive assessed: 02/09/24 I am a: Patient What is your living situation today?: I have a steady place to live Within the past 12 months, did the food you bought not last and you didn't have the money to get more?: Never true Within the past 12 months, did you worry whether your food would run out before you got money to buy more?: Never true Do you have trouble paying for medicines?: No Do you have trouble getting transportation to medical appointments?: No Do you have trouble paying your heating and electricity bill?: No Do you have trouble taking care of your child, family member or friend?: No Do you have trouble with day-to-day activities such as bathing, preparing meals, shopping, managing finances, etc.?: No Are you currently unemployed and looking for a job?: No Are you interested in more education?: No Please select the resources that you would like help with: None THRIVE Score: 0 HOME-7 AMB Questionnaire HOME-7 Date HOME - 7 assessed: 02/09/24 Feeling nervous, anxious, or on edge: 0 = Not at all Not being able to stop or control worryin = Not at all Worrying too much about different things: 0 = Not at all Trouble relaxin = Not at all Being so restless that it is hard to sit still: 0 = Not at all Becoming easily annoyed or irritable: 0 = Not at all Feeling afraid as if something awful might happen: 0 = Not at all Total HOME-7 score (0-4 normal; 5-9 mild; 10-14 moderate; 15-21 severe): 0 Source: Developed by Drs. Robert Sarah, Abigail Herzog, Misha Ca and colleagues, with an educational pete from [employer]. HOME-7 Assessment Billing HOME-7 Assessment Tool: HOME-7 Assessment 42479 Review of Systems Const All systems reviewed & are unremarkable except as noted in HPI and below Reports no additional complaints Eyes Reports no additional complaints ENT Reports no additional complaints Card Reports no additional complaints Physical exam (Primary Care) Vital Signs: Last Vital Signs Pulse 105 H 02/09/24 13:52 BP 110/78 02/09/24 13:52 Pulse Ox 96 02/09/24 13:52 Oxygen Delivery Method Room Air 02/09/24 13:52 BMI result Body Mass Index 40.7 Tobacco/Smoking Status: Tobacco use Status Tobacco use date assessed 02/09/24 02/09/24 13:57 Patient Tobacco Use Status Never used Tobacco 02/09/24 13:52 e-Cigarette/Vaping Use Never Used 02/09/24 13:52 PHQ-9: PHQ-9 Score PHQ-9: Total score 1 02/09/24 13:58 Depression Screening Interpretation: Negative Thrive Assessment: Date of Thrive Assessment Date Thrive assessed 02/09/24 02/09/24 13:52 Const General: no acute distress HENMT Head: Yes normal to inspection Ears: hearing grossly normal bilaterally General nose exam: Normal external nose present Face and sinus: Yes normal facial exam Throat: Yes posterior oropharynx normal Eyes General: appearance normal, both eyes and all related structures Neck Neck: Yes no lymphadenopathy and Yes supple Resp Effort & Inspection: normal respiratory effort Auscultation: clear to auscultation bilaterally Cardio Rhythm: regular rhythm Heart sounds: S1 normal heart sound present and S2 normal heart sound present GI Inspection: Yes normal to inspection Palpation (GI): Soft to palpation Percussion: Yes normal to percussion Auscultation: normal bowel sounds Coding Level of Care Code Est Pt Prev Care 18-39y(69068) Diagnoses GERD with esophagitis K21.00 Annual physical exam Z00.00 Chronic cough R05.3 Additional Codes HOME-7 Assessment Billing - HOME-7 Assessment Tool: HOME-7 Assessment 37691 ([id number]) PHQ-9 - 63695 - PHQ-9 Billing: Yes ([id number]) Assessment & Plan Assessment & Plan (1) GERD with esophagitis: Comment: EGD 10/2023, gastritis and esophagitis, biopsy negative for H pylori, started on PPI Code(s): K21.00 - Gastro-esophageal reflux disease with esophagitis, without bleeding Category: Medical Plan: Lifestyle modification discussed with the patient. he was advised to avoid eating 2 hours before going to bed and elevate the head of the bed. He was advised to take pantoprazole at night for chronic nocturnal cough (2) Annual physical exam: Code(s): Z00.00 - Encounter for general adult medical examination without abnormal findings Category: Medical Plan: Well-balanced diet regular physical activity weight loss discussed with the patient, he will have a fasting blood work today. (3) Chronic cough: Code(s): R05.3 - Chronic cough Category: Medical Plan: Possible secondary to chronic GERD. He will take PPI at bedtime and avoid eating 2 hours before sleep. Albuterol as prescribed to use p.r.n. patient will follow-up in 1 month Orders: Orders Complete Blood Count Auto Diff Today K21.00 - Gastro-esophageal reflux disease with esophagitis, without bleeding, Z00.00 - Encounter for general adult medical examination without abnormal findings Comprehensive Anderson. Panel Fast Today K21.00 - Gastro-esophageal reflux disease with esophagitis, without bleeding, Z00.00 - Encounter for general adult medical examination without abnormal findings Lipid Panel Today K21.00 - Gastro-esophageal reflux disease with esophagitis, without bleeding, Z00.00 - Encounter for general adult medical examination without abnormal findings UA w Microscopic Today K21.00 - Gastro-esophageal reflux disease with esophagitis, without bleeding, Z00.00 - Encounter for general adult medical examination without abnormal findings Medications: New albuterol sulfate 90 mcg/actuation 2 puffs inhalation Q6H PRN 8.5 grams 1RF shortness of breath or wheezing
[2024-02-09 13:52] VITALS: BP 110/78; PULSE 105; O2SAT 96; BMI 40.7
== END 2024-02-09 14:42 | disposition home or self-care (01) ==
PROVIDERS: PCP Internal Medicine; Visit Provider Internal Medicine
DX: K21.00 Gastro-esophageal reflux disease with esophagitis, without bleeding (principal); Z00.00 Encounter for general adult medical examination without abnormal findings; R05.3 Chronic cough

== ENCOUNTER 2024-02-09 13:45 | Outpatient (REF) | payer BC, SELFPAY ==
[2024-02-09 16:00] LABS: Appearance Urine Turbid; Color Urine Yellow; Glucose Urine UA Negative (Negative); Leukocyte Esterase Urine Negative (Negative); Nitrite Urine Negative (Negative); Specific Gravity - Urine >= 1.030 (1.005-1.025); UMIC TRIGGER UA YES; Urine Blood Trace (Negative); Urine Ketones 15 mg/dL (Negative); Urine Protein 30 (1+) mg/dL (Neg-Trace)
[2024-02-09 16:02] LABS: MANUAL DIFF FLAG NO
[2024-02-09 16:09] LABS: Basophils Absolute Auto 0.1 X10*3/uL (0.0-0.2); Basophils Percent Auto 0.5 % (0-2); Eosinophils Absolute Auto 0.1 X10*3/uL (0.0-0.4); Eosinophils Percent Auto 0.5 % (0-4); Hemoglobin 14.6 g/dl (14.0-18.0); Imm Gran Abs Auto 0.03 X10*3/uL (0.00-0.03); Imm Gran Pct Auto 0.3 % (0.0-0.4); Lymphocytes Absolute Auto 2.5 X10*3/uL (1.2-4.9); Lymphocytes Percent Auto 22.4 % (20-40); Mean Corpuscular HGB Conc 33.2 g/dl (31.0-36.0); Mean Corpuscular Hemoglobin 28.3 pg (27.0-33.0); Mean Corpuscular Volume 85.3 fL (80.0-98.0); Mean Platelet Volume 11.2 fL (9.4-12.4); Monocytes Absolute Auto 0.7 X10*3/uL (0.1-1.2); Monocytes Percent Auto 5.9 % (2-11); Neutrophils Absolute Auto 7.7 x10*3/uL (2.0-8.3); Neutrophils Percent Auto 70.4 % (45-73); Platelet Count 311 X10*3/uL (160-400); Red Blood Count 5.16 X10*6/uL (4.60-5.80); Red Cell Distribution Width 13.2 % (11.0-16.0)
[2024-02-09 16:11] LABS: Bacteria Urine None Seen (None Seen); Hyaline Casts Urine >20 /LPF (0-2); Squamous Epithelial Cell Urine 0-2 /HPF (0-2); WBC Urine 0-5 /HPF (0-5)
[2024-02-09 16:37] LABS: Alanine Aminotransferase 36 U/L (0-40); Albumin Level 4.5 g/dL (3.5-5.0); Alkaline Phosphatase 88 U/L (39-117); Anion Gap 11 (12-20); Aspartate Amino Transferase 36 U/L (5-37); Bilirubin Total 0.8 mg/dL (0.0-1.0); Blood Urea Nitrogen 15 mg/dL (9-16); Calcium 9.3 mg/dL (8.4-10.2); Carbon Dioxide 28 mmol/L (22-29); Chloride 109 mmol/L (96-108); Cholesterol 143 mg/dL (<200); Estimated Glomerular Filt Rate > 60; Glucose Fasting 90 mg/dL (60-99); HDL Cholesterol 44 mg/dL (>40); LDL Cholesterol Calculated 87 mg/dL (<100); Potassium 3.8 mmol/L (3.3-5.1); Sodium 144 mmol/L (135-145); Total Protein 8.4 g/dL (6.5-8.0); Triglycerides 60 mg/dL (<150)
== END 2024-02-09 13:46 | disposition home or self-care (01) ==
LOC: HO.HMGCLDS 13:45
PROVIDERS: PCP Internal Medicine; Visit Provider Internal Medicine
DX: Z00.00 Encounter for general adult medical examination without abnormal findings (principal); K21.00 Gastro-esophageal reflux disease with esophagitis, without bleeding; R05.3 Chronic cough
CPT/HCPCS: 36415; 80053; 80061; 81001; 85025; 96127

== ENCOUNTER 2024-03-29 13:28 | Outpatient (REF) | payer BC, SELFPAY ==
[2024-03-29 16:22] LABS: Appearance Urine Clear; Color Urine Dark Yellow; Glucose Urine UA Negative (Negative); Leukocyte Esterase Urine Negative (Negative); Nitrite Urine Negative (Negative); Specific Gravity - Urine 1.025 (1.005-1.025); Urine Blood Negative (Negative); Urine Ketones 80 mg/dL (Negative); Urine Protein Trace mg/dL (Neg-Trace)
[2024-03-29 17:48] LABS: Bacteria Urine None Seen (None Seen); Squamous Epithelial Cell Urine 0-2 /HPF (0-2); WBC Urine 0-5 /HPF (0-5)
== END 2024-03-29 13:29 | disposition home or self-care (01) ==
LOC: HO.HMGCLDS 13:28
PROVIDERS: PCP Internal Medicine; Visit Provider Internal Medicine
DX: K21.00 Gastro-esophageal reflux disease with esophagitis, without bleeding (principal); R31.29 Other microscopic hematuria
CPT/HCPCS: 81001; 96127

== ENCOUNTER 2024-05-27 07:49 | Outpatient (REF) | payer BC, SELFPAY ==
[2024-05-27 17:08] LABS: Urine Cytology See Pathology rpt
== END 2024-05-27 07:50 | disposition home or self-care (01) ==
LOC: HO.LNP 07:49
PROVIDERS: PCP Internal Medicine; Visit Provider Nurse Practitioner Family
DX: R31.29 Other microscopic hematuria (principal)
CPT/HCPCS: 81003; 88112

== ENCOUNTER 2024-05-27 07:49 | Outpatient (AMB) | payer BC, SELFPAY ==
--- NOTE | 2024-05-27 07:59 | A.OFFVIS_ITS ---
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 Mosher. He presents to the office today as a new patient for microscopic hematuria. In discussion with the patient today he reports having followed up with his PCP at which time urinalysis noted microscopic hematuria and recommendations were made for urology referral for further assessment evaluation. When asked he does report a previous history of socially smoking in his teenage years however describes these episodes as infrequent. He currently denies any bothersome urinary issues or concerns. In office urinalysis results reviewed with the patient today no microscopic hematuria noted. We discussed potential causes of microscopic hematuria as well as further workup to include imaging and in office cystoscopy. We discussed further microscopic hematuria versus surveillance monitoring and risks and benefits of these interventions. He denies urinary urgency, urinary frequency, incontinence, nocturia, hematuria, dysuria, foul smelling urine, changes to urinary stream, flank pain, fever, and or chills. He is happy with his current voiding parameters. He otherwise offers no other issues or concerns at this time. Discussion Notes The patient and I discussed the options regarding his history of intermittent microscopic hematuria. I explained that since no blood was detected in his urine presently and considering his smoking history is not consistent or heavy, close monitoring is a prudent option. We reviewed the possible causes and the potential for future imaging and cystoscopy if the symptom persists. Consent was obtained to monitor for six months, with plans for re-evaluation, at which point we will reassess the necessity for further intervention. I emphasized the importance of monitoring his symptoms and communicating any new developments immediately. 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: House Alcohol intake: former Comment: counts correct Patient Tobacco Use Status: Never used Tobacco e-Cigarette/Vaping Use: Never Used service: No Current occupational status: employed Cognitive needs: No Hearing needs: No Vision needs: No Review of Systems Const All systems reviewed & are unremarkable except as noted in HPI and below Physical Exam Const General: cooperative, healthy appearing, comfortable, no acute distress, well developed, alert and awake Orientation/consciousness: patient oriented x3 Limitations: no limitations HEENT Head: Yes normal to inspection, Yes normocephalic and Yes atraumatic Ears: hearing grossly normal bilaterally Eyes General: appearance normal, both eyes and all related structures Neck Neck: Yes normal visual inspection and Yes trachea midline Chest Chest palpation & inspection: normal inspection of the chest Resp Effort & Inspection: normal respiratory effort and able to speak in complete sentences Cardio Rate: regular rate GI Inspection: Yes normal to inspection General: Yes no CVA tenderness Back/Spine/Pelvis Back: no CVA tenderness Skin General skin exam: no rashes or lesions noted Neuro General: patient oriented x3 Extrem General: Yes normal to inspection Psych Appearance: grossly normal and well kempt Mental Status: mental status grossly normal Speech and movement: Normal speech and movement present and Clear speech present Affect: normal affect Attitude: cooperative Thought process: Normal thought process present Thought content: Normal thought content present Insight: Fair insight present (Psych) Judgement: Fair judgement present (Psych) Results AMB Urinalysis, Automated UA Leukoctes 0 Lisset/uL Last Edit by Karen Hilton on 05/27/24 08:12 UA Nitrite Last Edit by Brandyce Lida on 05/27/24 08:12 UA Urobilinogen 0.2 mg/dL Last Edit by Brandyce Jinass on 05/27/24 08:12 UA Protein 15 mg/dL Last Edit by Brandyce Bress on 05/27/24 08:12 UA pH 6.0 Last Edit by Tremayneyce Bress on 05/27/24 08:12 UA Blood 0 Yonatan/uL Last Edit by Brandyce Bress on 05/27/24 08:12 UA Specific Willows 1.025 Last Edit by Brandyce Bress on 05/27/24 08:12 UA Ketone Last Edit by Brandyce Bress on 05/27/24 08:12 UA Bilirubin 0 mg/dL Last Edit by Tremayneyce Lida on 05/27/24 08:12 UA Glucose 0 mg/dL Last Edit by Tremayneyce Lida on 05/27/24 08:12 Results Reviewed Results Reviewed: Laboratory Last Values Urine pH (Auto) 6.0 05/27/24 08:04 Specific Willows (Auto) 1.025 05/27/24 08:04 Urine Protein (Auto) 15 mg/dL 05/27/24 08:04 Glucose (UA)(Auto) 0 mg/dL 05/27/24 08:04 Urine Blood (Auto) 0 Yonatan/uL 05/27/24 08:04 Urine Bilirubin (Auto) 0 mg/dL 05/27/24 08:04 Urine Urobilinogen (Auto) 0.2 mg/dL 05/27/24 08:04 Leukocyte Esterase (Auto) 0 Lisset/uL 05/27/24 08:04 Assessment & Plan Assessment & Plan (1) Microhematuria: Code(s): R31.29 - Other microscopic hematuria Category: Medical Plan In office urinalysis results reviewed the patient today; as noted above; will send for urine cytology. We discussed at length potential causes of microscopic hematuria as well as further workup in risks and benefits of this interventions. Will continue with surveillance monitoring at this time. Patient currently denies any bothersome urinary issues or concerns. He reports be happy with current voiding parameters. Follow-up in 6 months; or sooner with any issues, concerns, and or questions. Orders: Orders AMB Urinalysis Automated Today Z13.9 - Encounter for screening, unspecified Urine Cytology Today R31.29 - Other microscopic hematuria Patient Instructions: The patient had an opportunity to ask questions regarding the treatment plan. All questions were answered. Physical exam, labs, and imaging were discussed and reviewed in detail. As well as risks, benefits, and discussion of treatment choices. No major barriers to understanding were identified. The patient expressed understanding and agreement with the above treatment plan. The patient was made aware they should contact our office by phone for worsening of their current condition, the appearance of new symptoms, or with any questions or concerns. Compliance is encouraged with any medications and follow up testing that is ordered. It is a privilege to be allowed the opportunity to participate in? your urological care.? Again, if you have any questions or concerns If you have any questions or concerns please do not hesitate to contact me. The office is [phone]. This note is constructed using voice recognition software. While every effort has been made to ensure accuracy statement clerk errors may have been included. Yours sincerely, ELLIOT Dominguez Coding Level of Care Code New Pt Level 3 (66629) Diagnoses Microhematuria R31.29
== END 2024-05-27 08:21 | disposition home or self-care (01) ==
LOC: HO.HUSH 07:50
PROVIDERS: PCP Internal Medicine; Visit Provider Nurse Practitioner Family
DX: R31.29 Other microscopic hematuria (principal); Z13.9 Encounter for screening, unspecified
CPT/HCPCS: 99203

== ENCOUNTER 2024-09-27 14:38 | Outpatient (AMB) | payer BC, SELFPAY ==
--- NOTE | 2024-09-27 15:34 | AM.OFFWIN_ITS ---
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 Patient states his symptoms have been present for the past 8 days and he has been burping with increased frequency. Patient denies having any postprandial pain, fevers, chills, nausea, vomiting, dark or bloody stools. Patient started retaking his Protonix on Monday with only minimal relief of his symptoms. 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 Alcohol intake: former Comment: counts correct Patient Tobacco Use Status: Never used Tobacco e-Cigarette/Vaping Use: Never Used service: No Current occupational status: employed Cognitive needs: No Hearing needs: No Vision needs: No Review of Systems Const All systems reviewed & are unremarkable except as noted in HPI and below Reports no additional complaints Eyes Reports no additional complaints ENT Reports no additional complaints and Denies dysphagia Card Reports no additional complaints and Denies chest pain Resp Reports no additional complaints and Denies cough GI Reports no additional complaints, Reports abdominal pain, Reports belching, Denies melena, Denies bloating, Denies hematochezia, Denies constipation, Denies dysphagia, Reports dyspepsia, Denies diarrhea, Denies loose stools, Denies nausea and Denies vomiting Reports no additional complaints Musc Reports no additional complaints Skin/Breast Reports system reviewed and no additional complaints, except as documented Neuro Reports no additional complaints Psych Reports no additional complaints Endo Reports no additional complaints Brian/Lymph Reports no additional complaints Physical Exam Vital Signs: Last Vital Signs Temp 98.4 F 09/27/24 15:35 Pulse 82 09/27/24 15:35 BP 115/68 09/27/24 15:35 Pulse Ox 97 09/27/24 15:35 Oxygen Delivery Method Room Air 09/27/24 15:35 BMI result Body Mass Index 39.8 Const General: cooperative, comfortable and no acute distress; No ill appearing Nutritional Appearance: well nourished Orientation/consciousness: patient oriented x3 Limitations: no limitations Cardio Rate: regular rate Rhythm: regular rhythm GI Palpation (GI): Soft to palpation, Tenderness to palpation present (GI) in the epigastrum; not in the LLQ, not in the RLQ, not in the LUQ, not in the RUQ and not periumbilically and no guarding Auscultation: normal bowel sounds Rectal Exam - Male: Yes deferred General: Yes Bimanual renal exam normal bilaterally, Yes bladder normal to palpation and Yes no CVA tenderness Back/Spine/Pelvis Back: no CVA tenderness Neuro General: patient oriented x3 Psych Appearance: grossly normal Mental Status: mental status grossly normal Insight: Good insight present (Psych) Judgement: Good judgement present (Psych) Assessment & Plan Assessment & Plan (1) GERD with esophagitis: Comment: EGD 10/2023, gastritis and esophagitis, biopsy negative for H pylori, started on PPI Code(s): K21.00 - Gastro-esophageal reflux disease with esophagitis, without bleeding Qualifiers: Esophagitis bleeding: without hemorrhage Qualified Code(s): K21.00 - Gastro-esophageal reflux disease with esophagitis, without bleeding Plan: Protonix 40 mg once daily, Carafate prior to each meal and bedtime times 7-10 days. Patient will follow up with his primary care provider within 2 weeks if his symptoms have not improved. Medications: New pantoprazole 40 mg PO DAILY 30 tabs 2RF sucralfate (Carafate) 10 mL PO QIDACHS 420 mL 0RF Coding Level of Care Code Est Pt Level 3 (56433) Diagnoses Gastroesophageal reflux disease with esophagitis without hemorrhage K21.00 Esophagitis bleeding: without hemorrhage Time Spent (min) 20
[2024-09-27 15:35] VITALS: BP 115/68; PULSE 82; TEMP 36.9; O2SAT 97; BMI 39.8
== END 2024-09-27 16:27 | disposition home or self-care (01) ==
PROVIDERS: PCP Internal Medicine; Visit Provider Physician Assistant
DX: K21.00 Gastro-esophageal reflux disease with esophagitis, without bleeding (principal)

== ENCOUNTER 2024-09-30 12:16 | Outpatient (AMB) | payer BC, SELFPAY ==
[2024-09-30 12:27] VITALS: BP 122/78; PULSE 79; RESP 16; TEMP 36.8; O2SAT 98; BMI 38.8
--- NOTE | 2024-09-30 12:27 | A.OFFPC_ITS ---
Vital Signs 09/30/24 12:27 Height 5 ft 8 in Weight 255 lb BMI 38.8 BP 122/78 Blood Pressure Location Rt brachial Position Sitting Respiration 16 Pulse 79 Pulse Source Pulse Oximeter Temp 98.3 F Temp Source Oral Pulse Oximetry (%) 98 Oxygen Delivery Method Room Air Intake Visit Reasons: stomach pain, lost of weight Gyro Compass Tester Required: No Accompanied by: Other Relationship Allergies No Known Allergies Allergy (Verified 09/30/24 12:28) Medication List - Last Reconciled 09/30/24 by Lucille Mosher MD pantoprazole 40 mg PO DAILY pantoprazole 40 mg PO DAILY sucralfate (Carafate) 10 mL PO QIDACHS Tobacco use date assessed: 03/29/24 Dental Screening Dental Screen Date: 03/29/24 Did you have a dental visit in the last 12 months?: Yes Did you have a dental problem in the last 6 months where you did not have access to dental care?: No Was dental information given to patient?: Patient has dentist HPI stomach pain, lost of weight HPI Details Pt c/o appetite loss for 2 weeks and intermittent diarrhea up to 3 bowel movements a day. Patient denies abdominal pain nausea vomiting hematochezia melena fever chills. Patient was seen in urgent care standing on pantoprazole for chronic GERD. Patient denies heartburn dysphagia or odynophagia. 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 1. Little interest or pleasure in doing things: not at all 2. Feeling down, depressed, or hopeless: several days 3. Trouble falling or staying asleep, or sleeping too much: not at all 4. Feeling tired or having little energy: not at all 5. Poor appetite or overeating: not at all 6. Feeling bad about yourself - or that you are a failure or have let yourself or your family down: several days 7. Trouble concentrating on things, such as reading the newspaper or watching television: not at all 8. Moving or speaking so slowly that other people could have noticed. Or the opposite - being so fidgety or restless that you have been moving around a lot more than usual: not at all 9. Thoughts that you would be better off or of hurting yourself in some way: not at all Total score: 2 Depression Screening Interpretation: Negative Depression Screening Done: Yes 11843 - PHQ-9 Billing: Yes Source: Developed by Drs. Robert Sarah, Abigail Herzog, Misha Ca and colleagues, with an educational pete from [employer]. Thrive Questionnaire Date Thrive assessed: 03/22/24 I am a: Patient What is your living situation today?: I have a steady place to live Within the past 12 months, did the food you bought not last and you didn't have the money to get more?: Never true Within the past 12 months, did you worry whether your food would run out before you got money to buy more?: Never true Do you have trouble paying for medicines?: No Do you have trouble getting transportation to medical appointments?: No Do you have trouble paying your heating and electricity bill?: No Do you have trouble taking care of your child, family member or friend?: No Do you have trouble with day-to-day activities such as bathing, preparing meals, shopping, managing finances, etc.?: No Are you currently unemployed and looking for a job?: No Are you interested in more education?: I choose not to answer this question Please select the resources that you would like help with: None Currently or been in a relationship where the following occur: No concerns reported THRIVE Score: 0 HOME-7 AMB Questionnaire HOME-7 Date HOME - 7 assessed: 03/29/24 Feeling nervous, anxious, or on edge: 0 = Not at all Not being able to stop or control worryin = Several days Worrying too much about different things: 1 = Several days Trouble relaxin = Not at all Being so restless that it is hard to sit still: 0 = Not at all Becoming easily annoyed or irritable: 0 = Not at all Feeling afraid as if something awful might happen: 1 = Several days Total HOME-7 score (0-4 normal; 5-9 mild; 10-14 moderate; 15-21 severe): 3 Source: Developed by Drs. Robert Sarah, Abigail Herzog, Misha Ca and colleagues, with an educational pete from [employer]. HOME-7 Assessment Billing HOME-7 Assessment Tool: HOME-7 Assessment 72937 Review of Systems Const All systems reviewed & are unremarkable except as noted in HPI and below Reports no additional complaints Eyes Reports no additional complaints ENT Reports no additional complaints Card Reports no additional complaints Resp Reports no additional complaints GI Reports no additional complaints Reports no additional complaints Physical exam (Primary Care) Vital Signs: Last Vital Signs Temp 98.3 F 09/30/24 12:27 Pulse 79 09/30/24 12:27 Resp 16 09/30/24 12:27 BP 122/78 09/30/24 12:27 Pulse Ox 98 09/30/24 12:27 Oxygen Delivery Method Room Air 09/30/24 12:27 BMI result Body Mass Index 38.8 Tobacco/Smoking Status: Tobacco use Status Tobacco use date assessed 03/29/24 09/30/24 12:28 Patient Tobacco Use Status Never used Tobacco 09/30/24 12:28 e-Cigarette/Vaping Use Never Used 09/30/24 12:28 PHQ-9: PHQ-9 Score PHQ-9: Total score 2 09/30/24 12:32 Depression Screening Interpretation: Negative Thrive Assessment: Date of Thrive Assessment Date Thrive assessed 03/22/24 09/30/24 12:28 Currently or been in a relationship where the following occur: No concerns reported Const General: no acute distress HENMT Head: Yes normal to inspection Resp Effort & Inspection: normal respiratory effort Auscultation: clear to auscultation bilaterally Cardio Rhythm: regular rhythm Heart sounds: S1 normal heart sound present and S2 normal heart sound present GI Inspection: Yes normal to inspection Palpation (GI): Soft to palpation Percussion: Yes normal to percussion Auscultation: normal bowel sounds Coding Level of Care Code Est Pt Level 3 (90261) Diagnoses Gastroesophageal reflux disease with esophagitis without hemorrhage K21.00 Esophagitis bleeding: without hemorrhage Additional Codes HOME-7 Assessment Billing - HOME-7 Assessment Tool: HOME-7 Assessment 58074 ([id number]) PHQ-9 - 66233 - PHQ-9 Billing: Yes ([id number]) Assessment & Plan Assessment & Plan (1) GERD with esophagitis: Comment: EGD 10/2023, gastritis and esophagitis, biopsy negative for H pylori, started on PPI Code(s): K21.00 - Gastro-esophageal reflux disease with esophagitis, without bleeding Category: Medical Qualifiers: Esophagitis bleeding: without hemorrhage Qualified Code(s): K21.00 - Gastro-esophageal reflux disease with esophagitis, without bleeding Plan: Continue PPI anti GERD diet discussed with the patient. Check comprehensive medical panel celiac disease panel, follow-up in 1 month Orders: Orders Lipid Panel Today K21.00 - Gastro-esophageal reflux disease with esophagitis, without bleeding Celiac Disease Panel Today K21.00 - Gastro-esophageal reflux disease with esophagitis, without bleeding Comprehensive Met. Panel Today K21.00 - Gastro-esophageal reflux disease with esophagitis, without bleeding GI Panel Today K21.00 - Gastro-esophageal reflux disease with esophagitis, without bleeding
== END 2024-09-30 13:28 | disposition home or self-care (01) ==
PROVIDERS: PCP Internal Medicine; Visit Provider Internal Medicine
DX: K21.00 Gastro-esophageal reflux disease with esophagitis, without bleeding (principal)

== ENCOUNTER 2024-09-30 12:16 | Outpatient (REF) | payer BC, SELFPAY ==
[2024-09-30 16:32] LABS: Alanine Aminotransferase 30 U/L (0-40); Albumin Level 4.8 g/dL (3.5-5.0); Alkaline Phosphatase 86 U/L (39-117); Anion Gap 14 (12-20); Aspartate Amino Transferase 30 U/L (5-37); Blood Urea Nitrogen 12 mg/dL (9-16); Calcium 10.0 mg/dL (8.4-10.2); Carbon Dioxide 28 mmol/L (22-29); Chloride 104 mmol/L (96-108); Estimated Glomerular Filt Rate > 60; Potassium 3.9 mmol/L (3.3-5.1); Sodium 142 mmol/L (135-145); Total Protein 8.1 g/dL (6.5-8.0)
[2024-10-01 21:04] LABS: Immunoglobulin A 442 mg/dL (47-310)
== END 2024-09-30 12:17 | disposition home or self-care (01) ==
LOC: HO.HMGCLDS 12:16
PROVIDERS: PCP Internal Medicine; Visit Provider Internal Medicine
DX: K21.00 Gastro-esophageal reflux disease with esophagitis, without bleeding (principal); Z13.31 Encounter for screening for depression
CPT/HCPCS: 36415; 80053; 82784; 86364; 96127

== ENCOUNTER 2024-10-04 13:30 | Outpatient (REF) | payer BC, SELFPAY ==
[2024-10-05 10:13] LABS: E. coli EAEC Not Detected (Not Detect.); E. coli EPEC Not Detected (Not Detect.); E. coli ETEC Not Detected (Not Detect.); E. coli STEC Not Detected (Not Detect.); Shigella sp./EIEC Not Detected (Not Detect.)
== END 2024-10-04 13:31 | disposition home or self-care (01) ==
LOC: HO.HMGCLNP 13:30
PROVIDERS: PCP Internal Medicine; Visit Provider Internal Medicine
DX: K21.00 Gastro-esophageal reflux disease with esophagitis, without bleeding (principal)
CPT/HCPCS: 87507

== ENCOUNTER 2024-11-27 15:45 | Outpatient (AMB) | payer BC, SELFPAY ==
--- NOTE | 2024-11-27 15:47 | MHC.OFFVIS ---
Intake Visit Reasons: 6M follow up Intake Note: Patient is present for 6M F/U Urology Medication:NONE Antibiotic Allergy:NONE Blood Thinner:NONE Rodeo Clown Required: No Allergies No Known Allergies Allergy (Verified 11/27/24 20:46) Medication List - Last Reconciled 11/27/24 by ELLIOT Dominguez No Known Home Meds HPI Comments Details: Dayron is a very pleasant 34-year-old male patient of Dr. Mosher. He presents to the office today with hematuria. In discussion with the patient today he reports to be doing and feeling well. He denies having had any bothersome urinary issues or concerns since his last office visit here. In office urinalysis results reviewed with the patient today trace microscopic hematuria noted. We did discusse at length potential causes of intermittent verses persistent verses gross hematuria. He does report a previous history of socially smoking in his teenage years however describes these episodes as infrequent. He currently denies any bothersome urinary issues or concerns. I discussed reasons for blood in the urine may include but are not limited to kidney stones, cancer in the urinary tract, BPH, kidney stone disease or inflammatory conditions of the urinary tract. I have discussed workup to include cystoscopy evaluation. He denies urinary urgency, urinary frequency, incontinence, nocturia, hematuria, dysuria, foul smelling urine, changes to urinary stream, flank pain, fever, and or chills. He is happy with his current voiding parameters. He otherwise offers no other issues or concerns at this time. Urine cytology 05/28: Negative for high-grade urothelial carcinoma. 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 Housing: House Alcohol intake: former Comment: counts correct Patient Tobacco Use Status: Never used Tobacco e-Cigarette/Vaping Use: Never Used service: No Current occupational status: employed Cognitive needs: No Hearing needs: No Vision needs: No Review of Systems Const All systems reviewed & are unremarkable except as noted in HPI and below Physical Exam Const General: cooperative, healthy appearing, comfortable, no acute distress, well developed, alert and awake Orientation/consciousness: patient oriented x3 Limitations: no limitations HEENT Head: Yes normal to inspection, Yes normocephalic and Yes atraumatic Ears: hearing grossly normal bilaterally Eyes General: appearance normal, both eyes and all related structures Neck Neck: Yes normal visual inspection and Yes trachea midline Chest Chest palpation & inspection: normal inspection of the chest Resp Effort & Inspection: normal respiratory effort and able to speak in complete sentences Cardio Rate: regular rate GI Inspection: Yes normal to inspection General: Yes no CVA tenderness Back/Spine/Pelvis Back: no CVA tenderness Skin General skin exam: no rashes or lesions noted Neuro General: patient oriented x3 Extrem General: Yes normal to inspection Psych Appearance: grossly normal and well kempt Mental Status: mental status grossly normal Speech and movement: Normal speech and movement present and Clear speech present Affect: normal affect Attitude: cooperative Thought process: Normal thought process present Thought content: Normal thought content present Insight: Fair insight present (Psych) Judgement: Fair judgement present (Psych) Results AMB Urinalysis, Automated UA Leukoctes 0 Lisset/uL Last Edit by SENG Sneed on 11/27/24 15:55 UA Nitrite Negative Last Edit by SENG Sneed on 11/27/24 15:55 UA Urobilinogen 0.2 mg/dL Last Edit by SENG Sneed on 11/27/24 15:55 UA Protein 15 mg/dL Last Edit by SENG Sneed on 11/27/24 15:55 UA pH 6.0 Last Edit by SENG Sneed on 11/27/24 15:55 UA Blood 10 Yonatan/uL Last Edit by SENG Sneed on 11/27/24 15:55 UA Specific [place] 1.025 Last Edit by SENG Sneed on 11/27/24 15:55 UA Ketone Negative Last Edit by SENG Sneed on 11/27/24 15:55 UA Bilirubin 0 mg/dL Last Edit by SENG Sneed on 11/27/24 15:55 UA Glucose 0 mg/dL Last Edit by SENG Sneed on 11/27/24 15:55 Results Reviewed Results Reviewed: Laboratory Last Values Urine pH (Auto) 6.0 11/27/24 15:49 Specific [place] (Auto) 1.025 11/27/24 15:49 Urine Protein (Auto) 15 mg/dL 11/27/24 15:49 Glucose (UA)(Auto) 0 mg/dL 11/27/24 15:49 Urine Ketones (Auto) Negative 11/27/24 15:49 Urine Blood (Auto) 10 Yonatan/uL 11/27/24 15:49 Urine Nitrite (Auto) Negative 11/27/24 15:49 Urine Bilirubin (Auto) 0 mg/dL 11/27/24 15:49 Urine Urobilinogen (Auto) 0.2 mg/dL 11/27/24 15:49 Leukocyte Esterase (Auto) 0 Lisset/uL 11/27/24 15:49 Assessment & Plan Assessment & Plan (1) Microhematuria: Code(s): R31.29 - Other microscopic hematuria Category: Medical Plan In office urinalysis results with the patient today; as noted above; will send for urine cytology. Previous urine cytology results reviewed with the patient today; as noted above. We did discussed potential causes of microscopic hematuria as well as further workup in risks and benefits of these interventions. He currently denies any bothersome urinary issues or concerns. He reports be happy with current voiding parameters. All questions were answered. Will continue with surveillance monitoring. Follow-up in 1 year; or sooner with any issues, concerns, and or questions. Orders: Orders AMB Urinalysis Automated Today Z13.9 - Encounter for screening, unspecified Urine Cytology Today R31.29 - Other microscopic hematuria Patient Instructions: The patient had an opportunity to ask questions regarding the treatment plan. All questions were answered. Physical exam, labs, and imaging were discussed and reviewed in detail. As well as risks, benefits, and discussion of treatment choices. No major barriers to understanding were identified. The patient expressed understanding and agreement with the above treatment plan. The patient was made aware they should contact our office by phone for worsening of their current condition, the appearance of new symptoms, or with any questions or concerns. Compliance is encouraged with any medications and follow up testing that is ordered. It is a privilege to be allowed the opportunity to participate in? your urological care.? Again, if you have any questions or concerns If you have any questions or concerns please do not hesitate to contact me. The office is [phone]. This note is constructed using voice recognition software. While every effort has been made to ensure accuracy account management specialist errors may have been included. Yours sincerely, ELLIOT Dominguez Coding Level of Care Code Est Pt Level 3 (18408) Diagnoses Microhematuria R31.29
== END 2024-11-27 16:33 | disposition home or self-care (01) ==
LOC: HO.HUSH 15:46
PROVIDERS: PCP Internal Medicine; Visit Provider Nurse Practitioner Family
DX: R31.29 Other microscopic hematuria (principal); Z13.9 Encounter for screening, unspecified
CPT/HCPCS: 99213

== ENCOUNTER 2024-11-27 15:45 | Outpatient (REF) | payer BC, SELFPAY | END 2024-11-27 15:46 | disposition home or self-care (01) | LOC: HO.LAB 15:45 | PROVIDERS: PCP Internal Medicine; Visit Provider Nurse Practitioner Family | DX: R31.29 Other microscopic hematuria (principal); Z13.89 Encounter for screening for other disorder | CPT/HCPCS: 81003; 88112 ==

== ENCOUNTER 2025-01-06 11:25 | Emergency (ER) | payer BC, SELFPAY ==
--- NOTE | ~2025-01-06 | XR_ITS ---
EXAMINATION: XR CHEST CLINICAL INFORMATION: chest pain COMPARISON: 04/14/2023 TECHNIQUE: 2 views of the chest were obtained. FINDINGS: The cardiac, hilar, and mediastinal contours are normal. The lungs are clear bilaterally. There is no pneumothorax or pleural effusion. There is no focal osseous or soft tissue abnormality. There are cholecystectomy clips. XR/XR chest 2V IMPRESSION: Normal chest. Electronically signed by: Matteo Sharpe MD 01/06/2025 12:12 PM [facility]
--- NOTE | 2025-01-06 11:27 | ECG_ITS ---
Test Reason : cp Blood Pressure : */* mmHG Vent. Rate : 83 BPM Atrial Rate : 83 BPM P-R Int : 138 ms QRS Dur : 84 ms QT Int : 366 ms P-R-T Axes : 49 64 33 degrees QTcB Int : 430 ms Normal sinus rhythm with sinus arrhythmia Normal ECG No previous ECGs available Referred By: Luna Barrios Electronically Signed By: Torey Fitzpatrick
[2025-01-06 11:33] VITALS: BP 135/82; PULSE 83; RESP 20; TEMP 36.8; O2SAT 99; BMI 39.9
--- NOTE | 2025-01-06 11:33 | ED_ITS ---
HPI - General Adult General Chief complaint: Chest Pain Stated complaint: Light chest pain Time Seen by Provider: 01/06/25 14:36 Source: patient and other (patient's partner) Mode of arrival: ambulatory Limitations: no limitations History of Present Illness ED Provider: Luna Barrios PA-C HPI narrative: Patient is a 34 year old assigned male at with a history of adjustment disorder and GERD presenting to the emergency department today with intermittent left sided chest pain, left shoulder pain, and intermittent left upper extremity paresthesias. Patient states that over the last 2 days he has had intermittent left sided chest pain, left upper shoulder pain, and intermittent left upper extremity paresthesias. Patient states that he has noticed this pain gets better when his partner massages his left upper shoulder. Patient denies any other complaints at this time. Related Data Home Medications ?Medication ?Instructions ?Recorded ?Confirmed No Known Home Meds 11/27/24 11/27/24 Allergies Allergy/AdvReac Type Severity Reaction Status Date / Time No Known Allergies Allergy Verified 01/06/25 11:34 Review of Systems 2 Constitutional: Constitutional: Reports as per HPI Eyes: Eyes: Reports as per HPI ENT: Reports as per HPI Cardiovascular: Cardiovascular: Reports as per HPI Respiratory: Respiratory: Reports as per HPI Gastrointestinal: Gastrointestinal: Reports as per HPI Genitourinary: Genitourinary: Reports as per HPI Musculoskeletal: Musculoskeletal: Reports as per HPI Integumentary/Breasts: Skin/Breast: Reports as per HPI Neurologic: Reports as per HPI Psychiatric: Psychiatric: Reports as per HPI Endocrine: Endocrine: Reports as per HPI Hematologic/Lymphatic: Hematologic/Lymphatic: Reports as per HPI Allergic/Immunologic: Allergic/Immunologic: Reports as per HPI [facility] Past Medical History Attestation statement: The following information was validated with the patient. (all information validated with the patient's partner) Source: old records reviewed, nursing notes reviewed and other (patient's partner provided additional history and confirmed the history provided by the patient. 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 Housing: House Alcohol intake: former Comment: counts correct Patient Tobacco Use Status: Never used Tobacco e-Cigarette/Vaping Use: Never Used Advance Directives: No Advance Directives Information Provided: Yes service: No Current occupational status: employed Cognitive needs: No Hearing needs: No Vision needs: No Physical Exam ED Vital Signs: Vital Signs - 24 hr 01/06/25 11:33 01/06/25 14:44 Temperature 98.2 F 98.2 F Pulse Rate 83 83 Respiratory Rate 20 20 Blood Pressure 135/82 135/82 Pulse Oximetry 99 99 Oxygen Delivery Method Room Air Room Air BMI result Body Mass Index 39.9 Const General: cooperative, no acute distress, alert and awake Nutritional Appearance: well nourished Orientation/consciousness: patient oriented x3 HENMT Head: Yes normal to inspection and Yes atraumatic Ears: hearing grossly normal bilaterally and external ears normal General nose exam: Normal external nose present, no nasal discharge noted and no epistaxis Face and sinus: Yes normal facial exam, No abrasion and No laceration Mouth: Normal oral and palatal mucosa present, no drooling and no muffled voice Eyes General: appearance normal, both eyes and all related structures Periorbital: periorbital findings normal Eyelids: Yes eyelids normal Conjunctivae: conjunctivae normal Pupils: Equal, round and reactive pupils present EOM: EOMs intact bilaterally Neck Neck: Yes normal visual inspection and Yes full ROM Resp Effort & Inspection: normal respiratory effort and able to speak in complete sentences Neuro General: patient oriented x3, moves all extremities and CN's II-XI intact bilaterally Cranial nerves: Yes Equal, round and reactive pupils present Cognition (Neuro): normal cognition Extrem General: Yes normal to inspection, Yes full ROM and Yes capillary refill normal Psych Appearance: grossly normal Mental Status: mental status grossly normal Affect: normal affect Attitude: cooperative Thought process: Normal thought process present Thought content: Normal thought content present Insight: Good insight present (Psych) Course Course Course Narrative: Rapid medical examination performed in triage by Luna Barrios PA-C: Patient is a 34 year old assigned male at presenting to the emergency department with left sided chest pain that comes and goes intermittently with left sided arm numbness / tingling. Detailed physical exam and review of systems are deferred to the moisture conditioner operator. EKG, labs and imaging ordered. Patient placed back in the waiting room pending room availability and results. Medical Decision Making Medical Decision Making [facility] Narrative: Patient is a 34 year old assigned male at with a history of adjustment disorder and GERD presenting to the emergency department today with intermittent left sided chest pain, left shoulder pain, and intermittent left upper extremity paresthesias. Patient's physical exam was unremarkable. Patient's blood work was unremarkable. Patient's EKG was unremarkable. Patient's chest x-ray showed no acute process. Patient's examination is most consistent with atypical chest pain and left trapezius muscle spasm. I explained my physical exam findings as well as all test results to the patient and the patient's partner. I answered all questions asked by the patient and the patient's partner. I stressed the importance of the patient taking his medication as directed (either prescribed or as the over the counter packaging recommends). I stressed the importance of the patient following up with his primary care provider. I stressed the importance of the patient returning to the emergency department immediately if his symptoms were to worsen or if he were to develop any dizziness, shortness of breath, difficulty breathing, chest pain, blurry vision, loss of vision, nausea, vomiting, abdominal pain, fever, chills, back pain, or any other complaints. Patient verbalized agreement and understanding with this treatment plan and discharge. Differential Diagnosis Differential Diagnoses: The differential diagnosis associated with the presentation includes Chest pain NSTEMI STEMI Atypical chest pain Muscle spasm Paresthesias Admission/Observation Consideration of admission/observation: Escalation of care including admission/observation considered Patient would have been admitted to the hospital had his work up had any findings where hospital admission was appropriate and his clinical presentation warranted hospital admission. Lab Data [facility] Lab Attestation statement: I reviewed the patient's lab results. My interpretation of these results are in the [facility] Rationale portion of this note. 01/06/25 11:39 01/06/25 11:39 Labs: Lab Results 01/06/25 Range/Units 11:39 WBC 9.2 (4.8-10.8) X10*3/uL RBC 5.22 (4.60-5.80) X10*6/uL Hgb 14.7 (14.0-18.0) g/dl Hct 45.0 (42.0-52.0) % MCV 86.2 (80.0-98.0) fL MCH 28.2 (27.0-33.0) pg MCHC 32.7 (31.0-36.0) g/dl RDW 13.3 (11.0-16.0) % Plt Count 276 (160-400) X10*3/uL MPV 10.6 (9.4-12.4) fL Immature Gran % (Auto) 0.4 (0.0-0.4) % Neut % (Auto) 63.8 (45-73) % Lymph % (Auto) 28.9 (20-40) % [place] % (Auto) 5.9 (2-11) % Eos % (Auto) 0.5 (0-4) % Baso % (Auto) 0.5 (0-2) % Lymph # (Auto) 2.6 (1.2-4.9) X10*3/uL [place] # (Auto) 0.5 (0.1-1.2) X10*3/uL Eos # (Auto) 0.1 (0.0-0.4) X10*3/uL Baso # (Auto) 0.1 (0.0-0.2) X10*3/uL Abs Immat Gran (auto) 0.04 H (0.00-0.03) X10*3/uL Absolute Neuts (auto) 5.8 (2.0-8.3) x10*3/uL Absolute Nucleated RBC 0.000 (0.0-0.012) X10*3/uL Nucleated RBC % (auto) 0.0 (0.0-0.2) /100WBC PT 13.7 H (10.9-12.4) SEC INR 1.2 H (0.9-1.1) Sodium 142 (135-145) mmol/L Potassium 4.0 (3.3-5.1) mmol/L Chloride 107 (96-108) mmol/L Carbon Dioxide 31 H (22-29) mmol/L Anion Gap 8 L (12-20) BUN 13 (9-16) mg/dL Creatinine 0.73 (0.5-1.4) mg/dL Estim Creat Clear Calc 180.3 Estimated GFR > 60 Random Glucose 97 (60-115) mg/dL Calcium 9.2 D (8.4-10.2) mg/dL Magnesium 2.3 (1.6-2.6) mg/dL Total Bilirubin 0.9 (0.0-1.0) mg/dL AST 33 (5-37) U/L ALT 36 (0-40) U/L Alkaline Phosphatase 88 (39-117) U/L Troponin I High Sens < 2.7 (<3.5-35.0) ng/L Total Protein 8.0 (6.5-8.0) g/dL Albumin 4.7 (3.5-5.0) g/dL Lipase 15 (8-78) U/L Independent Interpretation I performed an independent interpretation of an: EKG and Plain X-Ray Interpretation: My interpretation is in agreement with the radiologist's impression of this imaging study. L Reason for Exam: chest pain EXAMINATION: XR CHEST CLINICAL INFORMATION: chest pain COMPARISON: 04/14/2023 TECHNIQUE: 2 views of the chest were obtained. FINDINGS: The cardiac, hilar, and mediastinal contours are normal. The lungs are clear bilaterally. There is no pneumothorax or pleural effusion. There is no focal osseous or soft tissue abnormality. There are cholecystectomy clips. XR/XR chest 2V IMPRESSION: Normal chest. Electronically signed by: Matteo Sharpe MD 01/06/2025 12:12 PM [facility] Dictated By: Matteo Sharpe MD Signed By: Electronically signed by Matteo Sharpe MD 01/06/25 1212 I independently interpreted this EKG and am in agreement with the below findings: Vent. Rate: 83 BPM Atrial Rate: 83 BPM P-R Int: 138 ms QRS Dur: 84 ms QT Int: 366 ms P-R-T Axes: 49 64 33 degrees QTcB Int: 430 ms Normal sinus rhythm with sinus arrhythmia Normal ECG No previous ECGs available DD/ 1127 Radiology Impression Discussion of test interpretation with radiology: I have reviewed the radiologist's reading. Independent Historian Clinical information obtained from an independent historian. History obtained from or confirmed by: Other (patient's partner provided additional history and confirmed the history provided by the patient. ) Discharge Plan Discharge Clinical Impression: Arm paresthesia, left, Muscle spasm, Atypical chest pain Patient Disposition: Home, Self-Care Instructions: Paresthesia (ED), Muscle Spasm (ED), Chest Wall Pain (ED) Additional Instructions: Your lab work, chest x-ray, and EKG were all reassuring there is no EMERGENT cause for your symptoms. I am suspicious your pain is coming from a muscle spasm in your left trap. IF you are prescribed home medications and/or you are taking over the counter medications at home - it is very important you continue to do so as prescribed / directed unless told otherwise. Follow up with a primary care provider. Return to the emergency department immediately if your symptoms worsen or if you develop any numbness, tingling, dizziness, shortness of breath, difficulty breathing, chest pain, blurry vision, loss of vision, nausea, vomiting, abdominal pain, fever, chills, back pain, or any other complaints. Please see the information below about our Patient Portal. If you are not yet enrolled in the [facility] Patient Portal, you will receive an enrollment email invitation following your visit to any [facility] setting. You may also self-enroll in the Patient Portal by visiting our website: [email or web address] The following information is required to access the Patient Portal: - Your [facility] Medical Record Number - Your personal home email address (must match what is in your electronic medical record, Registration staff can assist with this) - Name - Date of Capabilities of the Patient Portal: - Message some providers - View upcoming appointments - Access your health summary, medical history, and visit history - View current conditions and allergies - View procedure and lab results - View your medications, including guidelines, side effects, and precautions - Complete pre-appointment questionnaires requested by your provider - Ready summary reports of your office visits and procedures To access the Patient Portal Mobile [employer], follow these directions: - Search [email or web address] in the [employer] Store or [employer] Store - Download the [employer] - Search for [facility] - Enter your login/password Prescriptions: No Action No Known Home Meds Referrals: Lucille Mosher MD [Primary Care Provider, Internal Medicine] Stand Alone Forms: Work/School Release Interventions: ED Discharge Assessment Last Done: 01/06/25 14:44 Discharge Date/Time: 01/06/25 14:45 Print Language: [place] Citizen
[2025-01-06 11:43] LABS: MANUAL DIFF FLAG NO
[2025-01-06 11:49] LABS: Hematocrit 45.0 % (42.0-52.0); Hemoglobin 14.7 g/dl (14.0-18.0); Imm Gran Abs Auto 0.04 X10*3/uL (0.00-0.03); Imm Gran Pct Auto 0.4 % (0.0-0.4); Lymphocytes Absolute Auto 2.6 X10*3/uL (1.2-4.9); Mean Corpuscular HGB Conc 32.7 g/dl (31.0-36.0); Mean Corpuscular Hemoglobin 28.2 pg (27.0-33.0); Mean Corpuscular Volume 86.2 fL (80.0-98.0); NRBC Abs Auto 0.000 X10*3/uL (0.0-0.012); NRBC Pct Auto 0.0 /100WBC (0.0-0.2); Platelet Count 276 X10*3/uL (160-400); Red Blood Count 5.22 X10*6/uL (4.60-5.80); White Blood Count 9.2 X10*3/uL (4.8-10.8)
[2025-01-06 11:57] LABS: INTERNATIONAL NORM RATIO 1.2 (0.9-1.1); Prothrombin Time 13.7 SEC (10.9-12.4)
[2025-01-06 12:02] LABS: Alanine Aminotransferase 36 U/L (0-40); Albumin Level 4.7 g/dL (3.5-5.0); Alkaline Phosphatase 88 U/L (39-117); Anion Gap 8 (12-20); Aspartate Amino Transferase 33 U/L (5-37); Blood Urea Nitrogen 13 mg/dL (9-16); Calcium 9.2 mg/dL (8.4-10.2); Carbon Dioxide 31 mmol/L (22-29); Chloride 107 mmol/L (96-108); Creatinine Clr Calc Pharmacy 180.3; Estimated Glomerular Filt Rate > 60; Lipase 15 U/L (8-78); Magnesium 2.3 mg/dL (1.6-2.6); Potassium 4.0 mmol/L (3.3-5.1); Sodium 142 mmol/L (135-145); Total Protein 8.0 g/dL (6.5-8.0)
[2025-01-06 12:11] LABS: Troponin-I High Sensitivity < 2.7 ng/L (<3.5-35.0)
[2025-01-06 14:44] VITALS: BP 135/82; PULSE 83; RESP 20; TEMP 36.8; O2SAT 99
== END 2025-01-06 14:45 | disposition home or self-care (01) ==
PROVIDERS: Physician Assistant Medical; Emergency Provider Emergency Medicine; PCP Internal Medicine
DX: R07.89 Other chest pain (principal); M62.838 Other muscle spasm; R20.2 Paresthesia of skin; Z79.899 Other long term (current) drug therapy
CPT/HCPCS: 36415; 71046; 80053; 83690; 83735; 84484; 85025; 85610; 93005; 99283

== ENCOUNTER → 2025-01-06 11:27 | Outpatient (BNV) | payer BC, SELFPAY | PROVIDERS: Emergency Provider Emergency Medicine; PCP Internal Medicine; Visit Provider Internal Medicine Cardiovascular Disease | DX: R07.9 Chest pain, unspecified (principal) | CPT/HCPCS: 93010 ==

== ENCOUNTER → 2025-01-06 11:34 | Outpatient (BNV) | payer BC, SELFPAY | PROVIDERS: PCP Internal Medicine; Visit Provider Radiology Diagnostic Radiology | DX: R07.9 Chest pain, unspecified (principal) | CPT/HCPCS: 71046 ==

== ENCOUNTER 2025-02-07 13:33 | Outpatient (AMB) | payer BC, SELFPAY ==
--- NOTE | 2025-02-07 13:41 | MHC.OFFWIV ---
Intake Vital Signs 02/07/25 13:43 Height 5 ft 8 in Weight 260 lb BMI 39.5 BP 122/78 Blood Pressure Location Rt brachial Position Sitting Pulse 102 H Pulse Source Pulse Oximeter Pulse Oximetry (%) 98 Oxygen Delivery Method Room Air Intake Visit Reasons: EP discomfort in neck Intake Note: Patient presents c/o lump in neck x3 weeks. Patient feels it more when he is eating & sitting or standing. Patient Tobacco Use Status: Never used Tobacco Allergies No Known Allergies Allergy (Verified 02/07/25 13:46) Do you need a note to return to daycare/school/sports/work: No HPI HPI Comments History of Present Illness Details This is a 34-year-old male with PMHx: GERD with esophagitis on PPI who presented to the walk-in clinic complaining of a globus sensation for the past 2 or 3 weeks. He states he ate a [employer] burrito with steak and he started to feel this sensation the day after. He states he only feels it when sitting and standing and he does not have the globus sensation when he is lying down. He states he had a few days of coughing up green mucus after his symptom onset but this has resolved. Patient also started to develop left ear discomfort (described as popping) with swallowing. He denies any odynophagia or dysphagia. He denies any muffled or hoarse voice. He denies fever/chills. He denies weight loss or night sweats. He denies any abdominal pain. He denies any nausea/vomiting/ diarrhea / constipation. He states he notices the symptoms more so on the left side than the right. 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: House Alcohol intake: former Comment: counts correct Patient Tobacco Use Status: Never used Tobacco e-Cigarette/Vaping Use: Never Used service: No Current occupational status: employed Cognitive needs: No Hearing needs: No Vision needs: No Review of Systems Const All systems reviewed & are unremarkable except as noted in HPI and below Reports no additional complaints Eyes Reports no additional complaints ENT Reports no additional complaints Card Reports no additional complaints Resp Reports no additional complaints GI Reports no additional complaints Reports no additional complaints Musc Reports no additional complaints Skin/Breast Reports system reviewed and no additional complaints, except as documented Neuro Reports no additional complaints Psych Reports no additional complaints Endo Reports no additional complaints Brian/Lymph Reports no additional complaints Aller/Immun Reports no additional complaints Physical Exam Exam Exam: Vital signs reviewed. Constitutional: Non-toxic appearing. No acute distress. Well-developed and well-nourished. HEENT: Normocephalic and atraumatic. PERRL/EOMI. Tympanic membranes without erythema, edema, or bulging bilaterally. External auditory canals without erythema or edema bilaterally. Moist mucous membranes. No pharyngeal erythema or exudates. No tonsillar masses, edema, or hypertrophy. No muffled or hoarse voice. Skin: Warm and dry. No rashes or lesions noted. Neck: Full and painless range of motion. No cervical lymphadenopathy. No appreciable thyroid nodules or enlargement. Cardio: Regular rate. No lower extremity edema. No JVD. Pulmonary: No respiratory distress. No accessory muscle usage. No stridor. Gastrointestinal: Soft, non-tender, and non-distended in all 4 quadrants. Musculoskeletal: Normal range of motion in joints throughout the body. No deformity or other signs of injury. Neuro: Alert and oriented x4. Cranial nerves 2-12 grossly intact. No focal deficits appreciated. Psych: Normal mood and affect. Vital Signs: Last Vital Signs Pulse 102 H 02/07/25 13:43 BP 122/78 02/07/25 13:43 Pulse Ox 98 02/07/25 13:43 Oxygen Delivery Method Room Air 02/07/25 13:43 BMI result Body Mass Index 39.5 Assessment & Plan Assessment & Plan (1) Globus sensation: Code(s): R09.A2 - Foreign body sensation, throat Plan 34-year-old male with PMHx: GERD with esophagitis on PPI who presented to the walk-in clinic complaining of a globus sensation for the past 2 or 3 weeks. Patient has no associated red flag symptoms such as fever/chills, weight loss, night sweats, odynophagia / dysphagia, or muffled/hoarse voice; however, his symptoms do appear to be lateralized to the left side which may not be consistent with a globus sensation. At this time, patient's physical exam is benign and his vital signs are stable. He has an appointment scheduled with his PCP in 1 week on 02/14/2025. I have prescribed a 1 week course of p.o. famotidine 40 mg every night at bedtime for additional acid suppression to see if this helps with his symptoms. If patient's symptoms are persistent, I encouraged the patient to discuss his symptoms with his primary care physician at his scheduled appointment for possible ENT referral versus ? thyroid ultrasound if PCP deems those appropriate. Patient was instructed to follow-up here proceed directly to the emergency room if he were to develop fever/chills, weight loss, night sweats, odynophagia /dysphagia, or muffled/hoarse voice.. Patient verbalized understanding and is agreeable with the plan. Medications: New famotidine 40 mg PO BEDTIME 7 tabs 0RF Coding Level of Care Code Est Pt Level 3 (33402) Diagnoses Globus sensation R09.A2
[2025-02-07 13:43] VITALS: BP 122/78; PULSE 102; O2SAT 98; BMI 39.5
== END 2025-02-07 15:00 | disposition home or self-care (01) ==
PROVIDERS: PCP Internal Medicine; Visit Provider Physician Assistant Medical
DX: R09.A2 Foreign body sensation, throat (principal)

== ENCOUNTER 2025-02-14 13:03 | Outpatient (AMB) | payer BC, SELFPAY ==
--- NOTE | 2025-02-14 13:28 | A.OFFPC_ITS ---
Vital Signs 02/14/25 13:32 Height 5 ft 8 in Weight 255 lb BMI 38.8 BP 106/68 Blood Pressure Location Rt brachial Position Sitting Pulse 83 Pulse Source Pulse Oximeter Pulse Oximetry (%) 98 Oxygen Delivery Method Room Air Intake Visit Reasons: annual PE Intake Note: Pt is here today for PE. Allergies No Known Allergies Allergy (Verified 02/14/25 13:46) Medication List - Last Reconciled 02/14/25 by Lucille Mosher MD famotidine 40 mg PO BEDTIME pantoprazole 40 mg PO DAILY Tobacco use date assessed: 02/14/25 Dental Screening Dental Screen Date: 03/29/24 HPI annual PE HPI Details Pt presents for PE. Patient complains of postnasal drip and feeling the fullness in the back of his throat when swallowing water or saliva. He denies heartburn difficulty swallowing to solids or liquids nausea vomiting food regurgitation. He was prescribed pantoprazole and famotidine for 2 weeks but have not noticed any significant improvement. 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: House Alcohol intake: former Comment: counts correct Patient Tobacco Use Status: Never used Tobacco e-Cigarette/Vaping Use: Never Used service: No Current occupational status: employed Cognitive needs: No Hearing needs: No Vision needs: No Questionnaire Thrive Questionnaire Date Thrive assessed: 03/22/24 I am a: Patient What is your living situation today?: I have a steady place to live Within the past 12 months, did the food you bought not last and you didn't have the money to get more?: Never true Within the past 12 months, did you worry whether your food would run out before you got money to buy more?: Never true Do you have trouble paying for medicines?: No Do you have trouble getting transportation to medical appointments?: No Do you have trouble paying your heating and electricity bill?: No Do you have trouble taking care of your child, family member or friend?: No Do you have trouble with day-to-day activities such as bathing, preparing meals, shopping, managing finances, etc.?: No Are you currently unemployed and looking for a job?: No Are you interested in more education?: I choose not to answer this question Please select the resources that you would like help with: None Currently or been in a relationship where the following occur: No concerns reported THRIVE Score: 0 HOME-7 AMB Questionnaire HOME-7 Date HOME - 7 assessed: 03/29/24 Source: Developed by Drs. Robert Sarah, Abigail Herzog, Misha Ca and colleagues, with an educational pete from [employer] Review of Systems Const All systems reviewed & are unremarkable except as noted in HPI and below Eyes Reports no additional complaints ENT Reports no additional complaints Card Reports no additional complaints Resp Reports no additional complaints GI Reports no additional complaints Reports no additional complaints Physical exam (Primary Care) Vital Signs: Last Vital Signs Pulse 83 02/14/25 13:32 BP 106/68 02/14/25 13:32 Pulse Ox 98 02/14/25 13:32 Oxygen Delivery Method Room Air 02/14/25 13:32 BMI result Body Mass Index 38.8 Tobacco/Smoking Status: Tobacco use Status Tobacco use date assessed 02/14/25 02/14/25 13:50 Patient Tobacco Use Status Never used Tobacco 02/14/25 13:28 e-Cigarette/Vaping Use Never Used 02/14/25 13:28 Thrive Assessment: Date of Thrive Assessment Date Thrive assessed 03/22/24 02/14/25 13:28 Currently or been in a relationship where the following occur: No concerns reported Const General: no acute distress HENMT Head: Yes normal to inspection General nose exam: Normal external nose present Mouth: Normal oral and palatal mucosa present Throat: Yes postnasal drainage Eyes General: appearance normal, both eyes and all related structures Neck Neck: Yes no lymphadenopathy and Yes supple Resp Effort & Inspection: normal respiratory effort Auscultation: clear to auscultation bilaterally Cardio Rhythm: regular rhythm Heart sounds: S1 normal heart sound present and S2 normal heart sound present GI Inspection: Yes normal to inspection Palpation (GI): Soft to palpation Percussion: Yes normal to percussion Auscultation: normal bowel sounds Coding Level of Care Code Est Pt Prev Care 18-39y(53852) Diagnoses Annual physical exam Z00.00 Postnasal drip R09.82 Assessment & Plan Assessment & Plan (1) Annual physical exam: Code(s): Z00.00 - Encounter for general adult medical examination without abnormal findings Category: Medical Plan: Well-balanced diet regular physical activity weight loss discussed with the patient. (2) Postnasal drip: Code(s): R09.82 - Postnasal drip Category: Medical Plan: For chronic postnasal drip patient was advised to try Claritin and saline nasal spray. He can add Flonase nasal spray there is no improvement after 2 weeks of taking Claritin
[2025-02-14 13:32] VITALS: BP 106/68; PULSE 83; O2SAT 98; BMI 38.8
== END 2025-02-14 15:21 | disposition home or self-care (01) ==
LOC: HO.HMCC 13:04
PROVIDERS: PCP Internal Medicine; Visit Provider Internal Medicine
DX: Z00.00 Encounter for general adult medical examination without abnormal findings (principal); R09.82 Postnasal drip

== ENCOUNTER 2025-02-26 22:01 | Emergency (ER) | payer BC, SELFPAY ==
--- NOTE | 2025-02-26 | ECG_ITS ---
Test Reason : CP Blood Pressure : */* mmHG Vent. Rate : 81 BPM Atrial Rate : 81 BPM P-R Int : 150 ms QRS Dur : 94 ms QT Int : 372 ms P-R-T Axes : 47 51 35 degrees QTcB Int : 432 ms Normal sinus rhythm Normal ECG When compared with ECG of 06-Jan-2025 11:27, No significant change was found Referred By: Generic ED Physician Electronically Signed By: JUNIOR KELLER MD
[2025-02-26 22:11] VITALS: BP 156/80; PULSE 84; RESP 15; TEMP 36.9; O2SAT 99; BMI 39.0
--- NOTE | 2025-02-26 22:29 | ED.CHESTPAIN ---
HPI - Chest Pain General Chief Complaint: Chest Pain Stated Complaint: CP for days Time Seen by Provider: 02/26/25 22:29 Source: patient Mode of arrival: ambulatory Limitations: no limitations History of Present Illness ED Provider: Dr. Charline Renteria HPI narrative: 34-year-old male who presents with intermittent chest pain that began two days ago. 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 localized to one focal area of the left anterior chest. The pain did not radiate to the jaw, arms, or back, and improved after he paused and took a deep breath. Approximately 30 minutes later, while driving on the highway, he experienced another brief pinch in the same spot, lasting <1 second, followed by chills and a sensation that he ?might faint.? Since then, the discomfort has recurred intermittently, including at rest. He denies known provoking factors such as exertion, eating, or position. Pain has not recurred during today?s ED visit. He denies associated nausea, vomiting, abdominal pain, urinary or bowel changes, or current cough. He had a cough about a month ago that has since resolved. He notes occasional subjective swelling in one leg without pain. No prior history of hypertension, hyperlipidemia, diabetes, or tobacco use. He reports a prior similar ED visit about one month ago with normal work-up (EKG, labs, CXR). He habitually ?cracks? his neck and wonders if musculoskeletal strain may contribute. Related Data Home Medications ?Medication ?Instructions ?Recorded ?Confirmed pantoprazole 40 mg tablet,delayed 40 mg PO DAILY 02/07/25 02/14/25 release Previous Rx's ?Medication ?Instructions ?Recorded famotidine 40 mg tablet 40 mg PO BEDTIME #7 tabs 02/07/25 Allergies Allergy/AdvReac Type Severity Reaction Status Date / Time No Known Allergies Allergy Verified 02/26/25 22:13 Review of Systems Review of Systems: as per HPI, full review of systems performed and negative but for the above mentioned pertinent positives and negatives. 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 SKIN: Normal skin color for ethnicity, warm, dry, no rashes noted. HEENT:? Normocephalic, atraumatic, no stridor, posterior oropharynx nonerythematous, dentition intact, EOMI. NECK: Soft, supple, full ROM, midline structures nontender, no step-offs, no deformities, no lymphadenopathy. CHEST: Heart regular rate and rhythm, no murmurs, symmetric chest rise and fall, no chest wall tenderness to palpation, no crepitus. PULMONARY: Clear to auscultation bilaterally, no labored breathing, no wheezes/rhales/rhonchi. ABDOMINAL: Soft, nondistended, nontender, positive bowel sounds in all quadrants. : Deferred. MUSCULOSKELETAL: Normal tone, full range of motion, no deformities, no peripheral edema. NEURO: Alert and oriented x3, CN II through XII intact, equal strength and sensation bilateral upper and lower extremities, no focal neurologic deficits.? PSYCHIATRIC: Normal affect, fluid speech, good eye contact and appropriate demeanor. Vital Signs: Vital Signs: Last Vital Signs Temp 97.8 F 02/27/25 00:54 Pulse 71 02/27/25 00:54 Resp 17 02/27/25 00:54 BP 132/86 02/27/25 00:54 Pulse Ox 98 02/27/25 00:54 O2 Del Method Room Air 02/27/25 00:54 BMI result Body Mass Index 39.0 Medical Decision Making Medical Decision Making MDM Narrative: 34-year-old male with intermittent, atypical chest pain. Differential diagnosis includes, but is not limited to, acute coronary syndrome, musculoskeletal pain, pneumothorax, GERD, pleurisy, pulmonary embolism, dissection, among others. I will order EKG, chest x-ray, laboratory workup including cardiac enzymes to further evaluate for etiology. Normal EKG, CXR, and labs. Pain characteristics, lack of exertional component, and normal objective studies make life-threatening cardiac etiology unlikely. Most consistent with musculoskeletal chest wall pain; anxiety/hyperventilation likely contributed to the sensation of faintness. Problem #1: Atypical chest pain ? likely musculoskeletal chest wall pain Assessment: Sharp, brief, focal ?twinge/pinch? without exertional component; normal cardiac work-up today and one month ago. No chest wall tenderness but mechanism/occupational activity and neck ?cracking? may contribute. Plan: - Reassurance; no evidence of acute coronary syndrome based on serial evaluations. - Await repeat blood pressure; if stable, discharge home. - Return precautions: immediate return to ED for chest pain with exertion, pain radiating to neck/arm, shortness of breath, diaphoresis, nausea/vomiting, or syncope. If you experience similar symptoms again, do not delay or wait to see if they resolve?come to the hospital right away. Problem #2: Anxiety / Hyperventilation contributing to symptom perception Assessment: Patient described feeling panicky and lightheaded after initial pain; provider discussed possibility of anxiety once serious causes ruled out. Plan: - Education provided regarding benign nature of current findings and potential role of stress/anxiety. Differential Diagnosis Differential Diagnoses: The differential diagnosis associated with the presentation includes (As above) Admission/Observation Consideration of admission/observation: Escalation of care including admission/observation considered Lab Data MDM Lab Attestation statement: I reviewed the patient's lab results. 02/26/25 23:09 02/26/25 23:09 Labs: Lab Results 02/26/25 Range/Units 23:09 WBC 10.4 (4.8-10.8) X10*3/uL RBC 4.85 (4.60-5.80) X10*6/uL Hgb 13.6 L (14.0-18.0) g/dl Hct 41.4 L (42.0-52.0) % MCV 85.4 (80.0-98.0) fL MCH 28.0 (27.0-33.0) pg MCHC 32.9 (31.0-36.0) g/dl RDW 13.5 (11.0-16.0) % Plt Count 261 (160-400) X10*3/uL MPV 10.9 (9.4-12.4) fL Immature Gran % (Auto) 0.2 (0.0-0.4) % Neut % (Auto) 61.3 (45-73) % Lymph % (Auto) 29.6 (20-40) % Lamb % (Auto) 7.6 (2-11) % Eos % (Auto) 0.9 (0-4) % Baso % (Auto) 0.4 (0-2) % Lymph # (Auto) 3.1 (1.2-4.9) X10*3/uL Lamb # (Auto) 0.8 (0.1-1.2) X10*3/uL Eos # (Auto) 0.1 (0.0-0.4) X10*3/uL Baso # (Auto) 0.0 (0.0-0.2) X10*3/uL Abs Immat Gran (auto) 0.02 (0.00-0.03) X10*3/uL Absolute Neuts (auto) 6.4 (2.0-8.3) x10*3/uL Absolute Nucleated RBC 0.000 (0.0-0.012) X10*3/uL Nucleated RBC % (auto) 0.0 (0.0-0.2) /100WBC Sodium 147 H (135-145) mmol/L Potassium 3.8 (3.3-5.1) mmol/L Chloride 113 H (96-108) mmol/L Carbon Dioxide 27 (22-29) mmol/L Anion Gap 11 L (12-20) BUN 15 (9-16) mg/dL Creatinine 0.91 (0.5-1.4) mg/dL Estim Creat Clear Calc 143.0 Estimated GFR > 60 Random Glucose 96 (60-115) mg/dL Calcium 9.0 (8.4-10.2) mg/dL Total Bilirubin 0.3 (0.0-1.0) mg/dL AST 25 (5-37) U/L ALT 35 (0-40) U/L Alkaline Phosphatase 80 (39-117) U/L Troponin I High Sens 13.7 D (<3.5-35.0) ng/L Total Protein 7.1 (6.5-8.0) g/dL Albumin 4.3 (3.5-5.0) g/dL Lipase 24 (8-78) U/L Independent Interpretation I performed an independent interpretation of an: EKG Interpretation: My independent interpretation of the ECG reveals normal sinus rhythm with rate of 81, normal axis, normal intervals, no ST elevations or depressions to suggest ischemic changes, no previous for comparison External Record Review External record reviewed: Inpatient record Prescription Management I considered prescription management with: Pain Medication Discharge Plan Discharge Clinical Impression: Atypical chest pain Patient Disposition: Home, Self-Care Instructions: Chest Wall Pain (ED) Additional Instructions: DIAGNOSIS & TREATMENT: You were seen in the Emergency Department for your chest discomfort. We performed an EKG, laboratory work and chest xray which did not reveal any acute abnormalities that would explain your symptoms. FURTHER CARE: We have not found any emergent physical exam or lab abnormalities that would require admission to the hospital today. Many people who come to the ER with chest discomfort do not leave with a specific diagnosis at the end of their visit. In the Emergency Department we try to make sure that there is no emergent problem that needs admission to the hospital or antibiotics right now. This does not mean that your evaluation is complete--please be sure to follow up with your regular doctor as additional testing as an outpatient may be indicated. Please be certain to drink plenty of fluids over the next several days. WHEN YOU SHOULD BE SEEN NEXT: Please follow-up with your primary care provider within the next 2-3 days for reevaluation of your symptoms. WHEN TO RETURN TO THE ED: Monitor your symptoms closely and return to the emergency department immediately for any new/worsening symptoms including: Worsening chest pain, difficulty breathing, fevers greater than 100 degrees, passing out, any new symptom that concerns you. Call 911 with any medical emergency. Prescriptions: No Action pantoprazole 40 mg tablet,delayed release (DR/EC) 40 mg PO DAILY famotidine 40 mg tablet 40 mg PO BEDTIME Qty: 7 0RF Interventions: ED Discharge Assessment Last Done: 02/27/25 00:54 Discharge Date/Time: 02/27/25 00:56 Print Language: Croatian
[2025-02-26 22:35] VITALS: BP 122/75; PULSE 78; RESP 16; TEMP 37.2; O2SAT 97
[2025-02-26 23:14] LABS: MANUAL DIFF FLAG NO
[2025-02-26 23:16] LABS: Hematocrit 41.4 % (42.0-52.0); Hemoglobin 13.6 g/dl (14.0-18.0); Imm Gran Abs Auto 0.02 X10*3/uL (0.00-0.03); Imm Gran Pct Auto 0.2 % (0.0-0.4); Lymphocytes Absolute Auto 3.1 X10*3/uL (1.2-4.9); Mean Corpuscular HGB Conc 32.9 g/dl (31.0-36.0); Mean Corpuscular Hemoglobin 28.0 pg (27.0-33.0); Mean Corpuscular Volume 85.4 fL (80.0-98.0); NRBC Abs Auto 0.000 X10*3/uL (0.0-0.012); NRBC Pct Auto 0.0 /100WBC (0.0-0.2); Platelet Count 261 X10*3/uL (160-400); Red Blood Count 4.85 X10*6/uL (4.60-5.80); White Blood Count 10.4 X10*3/uL (4.8-10.8)
[2025-02-26 23:29] LABS: Alanine Aminotransferase 35 U/L (0-40); Albumin Level 4.3 g/dL (3.5-5.0); Alkaline Phosphatase 80 U/L (39-117); Anion Gap 11 (12-20); Aspartate Amino Transferase 25 U/L (5-37); Blood Urea Nitrogen 15 mg/dL (9-16); Calcium 9.0 mg/dL (8.4-10.2); Carbon Dioxide 27 mmol/L (22-29); Chloride 113 mmol/L (96-108); Creatinine Clr Calc Pharmacy 143.0; Estimated Glomerular Filt Rate > 60; Lipase 24 U/L (8-78); Potassium 3.8 mmol/L (3.3-5.1); Sodium 147 mmol/L (135-145); Total Protein 7.1 g/dL (6.5-8.0)
[2025-02-26 23:36] LABS: Troponin-I High Sensitivity 13.7 ng/L (<3.5-35.0)
[2025-02-27 00:54] VITALS: BP 132/86; PULSE 71; RESP 17; TEMP 36.6; O2SAT 98
== END 2025-02-27 00:56 | disposition home or self-care (01) ==
PROVIDERS: Emergency Provider Emergency Medicine
DX: R07.89 Other chest pain (principal); R05.3 Chronic cough
CPT/HCPCS: 36415; 80053; 83690; 84484; 85025; 93005; 99283; 99284

== ENCOUNTER → 2025-02-26 22:02 | Outpatient (BNV) | payer BC, SELFPAY | PROVIDERS: Emergency Provider Emergency Medicine; Visit Provider Internal Medicine Cardiovascular Disease | DX: R07.9 Chest pain, unspecified (principal) | CPT/HCPCS: 93010 ==